=== PATIENT | male | born 1935 | race Caucasian/White ===

== ENCOUNTER → 2023-11-16 13:36 | Outpatient (REF) | payer MEDICARE, BC, SELFPAY | LOC: DHCBC MAIN 13:36 | PROVIDERS: ATTENDING PHYSICIAN Internal Medicine Cardiovascular Disease; FAMILY PHYSICIAN Family Medicine | DX: Q25.3 Supravalvular aortic stenosis (principal) | CPT/HCPCS: 93306 ==

== ENCOUNTER 2024-01-07 03:19 | Emergency (ER) | payer MEDICARE, BC, SELFPAY ==
[2024-01-07 03:21] VITALS: BP 122/79
--- NOTE | 2024-01-07 03:29 | ED.GENMED ---
History of Present Illness
General
Chief Complaint: Esophageal Problem
Time Seen by Provider: 01/07/24 03:29
Travel History
Have you had any contact with someone who has COVID-19?: No
Do you have any symptoms of coronavirus? Fever > 100 degrees, chills, cough, shortness of breath, sore throat, loss of taste or smell, muscle aches, or headache?: No
History of Present Illness
History of Present Illness:
HPI: Patient presents due to concern for something stuck in his esophagus. He had a [place] dinner this past evening but continued to be able to clear his secretions. Later in the evening, he had an episode where he felt that there was something
stuck and he had some trouble breathing at the time. Overall he is significantly improved.
EXAM:
GENERAL: Well appearing in no distress
HEENT: Moist oral mucosa
PULMONARY: No respiratory distress, breath sounds are clear and equal
ABDOMEN: Soft with no peritoneal signs, no tenderness
NEUROLOGIC: Excellent strength all extremities, no coordination deficits
PSYCHIATRIC: Appropriate mental status, normal insight and judgement
EXTREMITIES: Nontender, no edema, moves all extremities equally
SKIN: No rash, no lesions
TIME OF INITIAL ENCOUNTER: 3:35 AM
NUMBER AND COMPLEXITY OF PROBLEMS ADDRESSED AT THE ENCOUNTER
� Chronic conditions affecting care: CAD, high blood pressure, hyperlipidemia
� Acute Exacerbation and/or Progression of Chronic Illness: This is an acute problem
� Differential Diagnosis includes: Esophageal food bolus, aspiration, irritation of the esophagus, GERD
AMOUNT AND/OR COMPLEXITY OF DATA TO BE REVIEWED AND ANALYZED
� I performed an independent evaluation of and my interpretation is:
EKG:
CT:
X-rays:
Laboratory Studies:
Other:
� Review of other/old records: I reviewed the endoscopy note from 2020 that showed abnormal motility of the esophagus
� Clinical information was obtained by an independent historian: I spoke to the at bedside
� Prescriptions/Medications Considered but not given:
� Further testing considered but not performed: No indication for imaging at this time
RISK OF COMPLICATIONS AND/OR MORBIDITY OR MORTALITY OF PATIENT MANAGEMENT
� Social determinants of health affecting care: Lives at home with
� Discussion with other providers:
� Escalation of care including admission/observation vs risk of discharge considered: I gave the patient a small amount of water to drink and eat and drink this without any difficulty. He initially thought he had some sensation
that something was stuck however on repeat attempt, he no longer had any abnormality and the water went down freely and without any difficulty. He is to follow-up with GI and I suggested that he resume his PPI.
Past History
Past History
ED Past Medical History: Arrthythmia, CAD, HTN, Hypercholesterolemia, [place] and Other (UTI, , lumbar DJD, afib on eliquis post-op, post-op urinary retention)
ED Past Surgical History: Cardiac (CABG 02/2018), Orthopedic and Other (Cataract)
Social History
Tobacco: Former smoker
Alcohol: None
Drug: None
Personal:
Living: with family
Employment: Retired
Family History
Family History: Other (n/c)
Phy Exam
Physical Exam
Physical Exam:
See HPI
Course
Vital Signs
Initial and Last Documented VS:
Initial Vital Signs
Temp Pulse Resp BP Pulse Ox
98 F 77 16 122/79 97
01/07/24 03:21 01/07/24 03:21 01/07/24 03:21 01/07/24 03:21 01/07/24 03:21
Last Documented Vital Signs
Temp Pulse Resp BP Pulse Ox
98 F 77 16 122/79 97
01/07/24 03:21 01/07/24 03:21 01/07/24 03:21 01/07/24 03:21 01/07/24 03:21
*Critical Care Note
Total Time (30-74mins, 75-104mins- exclusive of procedures): Not Applicable
ED Attending Note
-
Portions of this chart may have been created with voice recognition software.� Occasional wrong word or��sound alike� substitutions may have occurred due to the inherent limitations of voice recognition software.
Discharge Plan
Departure
Patient Disposition: Home (Routine Discharge)
Date of Disposition: 01/07/24
Time of Disposition: 03:46
Patient with high blood pressure during this ER visit?: Yes
Discharge Problem:
Dysphagia
Prescriptions:
No Action
atorvastatin 40 MG tablet
40 mg PO HS Qty: 30 3RF
tamsulosin 0.4 MG capsule
0.4 mg PO HS Qty: 30 0RF
acetaminophen [Tylenol Extra Strength] 500 MG tablet
1,000 mg PO Q6HPRN PRN (Reason: MILD PAIN)
aspirin 81 MG tablet,delayed release (DR/EC)
81 mg PO DAILY
olmesartan 20 MG tablet
20 mg PO BID
metoprolol succinate 25 MG tablet extended release 24 hr
25 mg PO DAILY@1200
hydrochlorothiazide 12.5 MG tablet
12.5 mg PO DAILY
bethanechol chloride 25 MG tablet
25 mg PO DAILY
Referrals:
Ofe Cortes MD [Active] - Follow up in 2-3 days
Activity Restrictions/Additional Instructions:
I recommend resuming your stomach acid medication. I also recommend that you follow-up with GI. Return here if worse.
Interventions
Interventions:
*Risk Screen - Suicide Last Done: 01/07/24 03:21
*General Assessment Last Done: 01/07/24 03:21
*Neglect/Abuse Screening Last Done: 01/07/24 03:21
*ED COVID-19 Vaccine History Last Done: 01/07/24 03:37
MI-Psgjyz-Nzsocjetuo Assessment Last Done: 01/07/24 03:37
ED-EENT Assessment Last Done: 01/07/24 03:37
Discharge Date and Time
Print Language: SOUTH AFRICAN
== END 2024-01-07 04:00 | disposition home or self-care (01) ==
LOC: EMR 03:19
PROVIDERS: EMERGENCY PHYSICIAN Emergency Medicine; FAMILY PHYSICIAN Family Medicine
DX: R13.10 Dysphagia, unspecified (principal); I25.10 Atherosclerotic heart disease of native coronary artery without angina pectoris; I10 Essential (primary) hypertension; E78.00 Pure hypercholesterolemia, unspecified; I48.91 Unspecified atrial fibrillation; M47.816 Spondylosis without myelopathy or radiculopathy, lumbar region; I25.2 Old myocardial infarction; Z79.82 Long term (current) use of aspirin; Z87.440 Personal history of urinary (tract) infections; Z87.891 Personal history of nicotine dependence; Z95.1 Presence of aortocoronary bypass graft; Z91.018 Allergy to other foods
CPT/HCPCS: 99282

== ENCOUNTER 2024-02-03 19:59 | Inpatient (IN) | payer MEDICARE, BC, SELFPAY ==
[2024-02-03 16:12] VITALS: BP 169/83
[2024-02-03 16:37] LABS: % Basophils 0.6 % (0-2); % Eosinophils 2.4 % (0-6); % Immature Granulocytes 0.5 % (0-0.5); % Monocytes 14.4 % (1.7-9.3); % Neutrophils 57.1 % (42.2-75.2); Absolute Eosinophils 0.2 10^3/uL (0-0.7); Absolute Lymphocytes 1.6 10^3/uL (1.2-3.4); Absolute Monocytes 0.9 10^3/uL (0.1-0.6); Absolute Neutrophils 3.6 10^3/uL (1.4-6.5); Hemoglobin 13.8 g/dL (13.0-18.0); Mean Corp Hgb Conc. 34.5 g/dL (33.0-37.0); Mean Corpuscular Hgb 33.5 pg (27.0-31.0); Mean Corpuscular Volume 97.1 fL (80.0-94.0); Mean Platelet Volume 10.5 fL (7.4-10.4); Nucleated Red Blood Cells % 0 % (-); Platelet Count 205 10^3/uL (130-400); Red Blood Cell Count 4.12 10^6/uL (4.70-6.10); Red Cell Dist. Width 12.5 % (11.5-14.5); White Blood Cell Count 6.3 10^3/uL (4.8-10.8)
--- NOTE | 2024-02-03 16:40 | CON.CAR ---
Addendum entered and electronically signed by Ken Mireles MD 02/04/24 07:32:
Patient seen and examined in duration with ACID PURIFICATION EQUIPMENT OPERATOR; agree with below.
-88-year-old male with-close previous CABG moderate to severe aortic stenosis presenting with dyspnea.
-Troponin elevation could be secondary to demand ischemia (type II IA) versus nonischemic myocardial injury in the setting of severe aortic stenosis.
-Recommend Lasix 40 mg IV daily for now.
-Will arrange cardiac catheterization on Tuesday as patient will likely need to undergo TAVR.
-environmental monitoring technician; will follow.
Original Note:
Consultation
Consultation Request
Date/Time Consultation Requested: 02/03/2024 17:30
Date/Time Consultation Performed: 02/03/2024 17:30
Requesting Provider: Dr. Hopkins
Performing Provider: NIKKY Yan for Dr. Mireles
Reason for Consultation: Shortness of breath, chest tightness
Medical History
-
Chief Complaint: Chest tightness, shortness of breath
History of Present Illness:
Manav Martínez is an 88-year-old male (known to Dr. Anglin, his primary handbag framer), with coronary artery disease (CABG x4, 2018), moderate to severe aortic stenosis, post CABG paroxysmal atrial fibrillation (briefly on apixaban), hypertension,
dyslipidemia, GERD, and former smoker who called triage at the cardiology office with shortness of breath and chest tightness. He was referred to the emergency department. His anginal equivalent prior to CABG was shortness of breath. He has been
having associated lower extremity edema. It gets worse throughout the day but when he wakes in the morning it does not completely resolve. Regarding his chest tightness, this is exertional. It does not radiate. He endorses associated symptoms of
shortness of breath. He is not having any nausea, vomiting, nor diaphoresis with this. He is not having any shortness of breath at rest but he reports it is taking less activity for him to become short of breath and he needs to recover a little
bit longer than last week.
Past Medical History
Past Medical History: Arrhythmias (Paroxysmal atrial fibrillation [post CABG, briefly on apixaban]), CAD, GERD, HTN, Hypercholesterolemia and Valvular Disease (Aortic stenosis)
Past Surgical History: Cardiac (CABG x 4 [2018]), Orthopedic and Urological (TURP)
Social History
Tobacco: Former Smoker
Alcohol: None
Drug: None
Employment: Retired
Family History
Family History: Reviewed & Not Pertinent
Allergies / Home Medications
Allergy/AdvReac Type Severity Reaction Status Date / Time
apple Allergy Swelling Verified 09/24/20 18:17
�Medication �Instructions �Recorded �Confirmed �Type
atorvastatin 40 mg tablet 40 mg PO HS ##30 03/09/18 09/24/20 Rx
tamsulosin 0.4 mg capsule 0.4 mg PO HS ##30 03/09/18 09/24/20 Rx
acetaminophen 500 mg tablet 1,000 mg PO Q6HPRN PRN MILD PAIN 03/17/18 09/24/20 History
(Tylenol Extra Strength)
aspirin 81 mg tablet,delayed 81 mg PO DAILY 05/22/18 09/24/20 History
release
olmesartan 20 mg tablet 20 mg PO BID 05/22/18 09/24/20 History
bethanechol chloride 25 mg tablet 25 mg PO DAILY 09/24/20 09/24/20 History
hydrochlorothiazide 12.5 mg tablet 12.5 mg PO DAILY 09/24/20 09/24/20 History
metoprolol succinate 25 mg 25 mg PO DAILY@1200 09/24/20 09/24/20 History
tablet,extended release 24 hr
Review of Systems
-
History Source: Patient
All other systems: Negative unless noted
Constitutional: No Symptoms
EENT: No Symptoms
Respiratory: Trouble Breathing
Cardiac: Chest Pain
Abdomen/GI: No Symptoms
: No Symptoms
Skin: No Symptoms
Neurological: No Symptoms
Endocrine: No Symptoms
Hematologic/Lymphatic: No Symptoms
Physical Exam
Vital Signs
Temp Pulse Resp BP Pulse Ox
98.0 F 78 19 169/83 98
02/03/24 16:12 02/03/24 16:12 02/03/24 16:12 02/03/24 16:12 02/03/24 16:12
Lab Results
02/03/24 16:27
Physical Exam
General: Well Developed, Well Nourished, No Apparent Distress and Comfortable
HEENT: Normocephalic, Anicteric and Moist Mucous Membranes
Respiratory: Clear and Non Labored Respirations
Cardiac: S1/S2, Regular Rhythm and Murmur (II/)
Breast: Deferred by me
GI: Soft, Non Tender, Non Distended and Normal Bowel Sounds
Rectal: Deferred by Provider
Genito-urinary: No Costovertebral Tender
Musculoskeletal: No Clubbing, No Cyanosis and Edema (+2 pitting bilateral lower extremity edema)
Skin: Warm and Dry
Neuro: AO x 3
Hematologic/Lymphatic: No Lymphadenopathy
Psych: Calm
Impression / Plan
-
Shortness of breath
-DDx includes: ischemia, progressive aortic stenosis, and HFpEF or a multifactorial picture which is more likely
-Plan as below
Abnormal troponin, type unknown
-Could be in the setting of severe aortic stenosis and HFpEF or CAD
-Trend to peak along with EKG
-Heparin gtt, continue ASA
-Cardiac catheterization Tuesday
HFpEF, acute
-proBNP & CXR ordered
-Furosemide 40mg IV x 1 now, follow, can consider decrease to 20mg IV BID pending on I/O
-Trend daily weight, I/O, & BMP with diuresis
-Heart failure education
Aortic stenosis, moderate to severe
-Echocardiogram in October with peak/mean gradients of 38/22 mmHg with JANUARY 0.9 cm� with mild to moderate aortic regurgitation
-Update echocardiogram
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
CAD s/p CABG x 4 (STERN�LAD; SVG�RPD; SVG�OM1, OM 2) 02/[address] Stauffer
-Anginal equivalent was shortness of breath
-Continue ASA & statin
Paroxysmal atrial fibrillation, brief after CABG, on short-term apixaban
Hypertension, BP stable, follow
Dyslipidemia, most recent LDL 36 (10/2023)
Mild to moderate tricuspid regurgitation, PASP 40-45 mmHg
Former smoker, continued cessation recommended
Data Reviewed
-
EKG: Report Reviewed by me (Sinus rhythm, first-degree AV block, lateral ST abnormality, rate 68)
Medical Tests (Nuc Med, Echo etc): Report Reviewed by me (Echocardiogram as above)
Labs: Labs Reviewed by me
Old Records: Reviewed
[2024-02-03 16:54] LABS: ALT (SGPT) 22 U/L (0-50); AST (SGOT) 30 U/L (17-59); Albumin 4.7 g/dl (3.5-5.0); Alkaline Phosphatase 84 U/L (38-126); Blood Urea Nitrogen 17 mg/dl (9-20); Calcium 9.9 mg/dl (8.4-10.2); Carbon Dioxide 24 mmol/L (22-30); Chloride 105 mmol/L (98-107); Glucose 108 mg/dl (70-99); Sodium 138 mmol/L (135-145); Total Bilirubin 1.2 mg/dl (0.2-1.3); Total Protein 7.1 g/dl (6.3-8.2); eGFR > 60.00
[2024-02-03 17:10] LABS: Troponin I 0.077 ng/ml
[2024-02-03 18:06] VITALS: BMI 28.3
--- NOTE | 2024-02-03 18:06 | ED.GENMED ---
History of Present Illness
<Luis Fonseca MD, Resident - Last Filed: 02/03/24 18:31>
General
Chief Complaint: Chest Pain
Time Seen by Provider: 02/03/24 17:40
History of Present Illness
History of Present Illness:
Manav is an 88-year-old male with history of coronary artery disease (CABG in 08/28/2017), aortic stenosis, paroxysmal atrial fibrillation post CABG, hypertension, dyslipidemia, GERD, former smoker presented to the ED with shortness of breath on
exertion and chest tightness. He please call tried to the cardiology office with the symptoms and was told to come immediately to [facility] ED. Patient reports of bilateral lower extremity edema which is which is constant throughout the
day and does not resolve with elevation of the legs. He admits to having SOB and chest tightness on exertion. He denies pain radiation to his shoulders or back. Patient denies any recent illnesses, cough, abd pain, nausea, vomiting.
Past History
<Luis Fonseca MD, Resident - Last Filed: 02/03/24 18:31>
Past History
ED Past Medical History: Arrthythmia, CAD, HTN, Hypercholesterolemia, [place] and Other (UTI, , lumbar DJD, afib on eliquis post-op, post-op urinary retention)
ED Past Surgical History: Cardiac (CABG 02/2018), Orthopedic and Other (Cataract)
Social History
Tobacco: Former smoker
Alcohol: None
Drug: None
Personal:
Living: with family
Employment: Retired
Family History
Family History: Other (n/c)
Review of Systems
<Luis Fonseca MD, Resident - Last Filed: 02/03/24 18:31>
Review of Systems
Respiratory: Reports trouble breathing
Cardiac: Reports other (chest tightness )
Phy Exam
<Luis Fonseca MD, Resident - Last Filed: 02/03/24 18:31>
General Physical Exam
General Presentation: mild distress
General age: appears stated age
Cardiovascular Exam
Cardiovascular Exam: regular rate/rhythm and systolic murmur (left upper sternal border )
Pulmonary Exam
Pulmonary Exam: lungs clear
Gastrointestinal Exam
Gastrointestinal Exam: normal bowel sounds, non tender and soft
Musculoskeletal Exam
Musculoskeletal Exam: edema (3+ pitting edema in left LE more than right LE)
Scores
<Luis Fonseca MD, Resident - Last Filed: 02/03/24 18:31>
Heart Score for Chest Pain Patients
STEMI patient?: No
History: Highly Suspicious
ECG: Normal
Age: >/= 65 years
Risk Factors: 1 or 2 Risk Factors
Troponin: >1 - <3 x Normal Limit
Heart Score for Chest Pain Patients: 6
Heart Score Risk: 20.3% MACE over next 6 weeks
<Louis Hopkins, DO - Last Filed: 02/03/24 18:44>
Heart Score for Chest Pain Patients
Heart Score for Chest Pain Patients: 6
Heart Score Risk: 20.3% MACE over next 6 weeks
Course
<Luis Fonseca MD, Resident - Last Filed: 02/03/24 18:31>
Orders/Labs/Results
Orders:
Orders
02/03/24 16:11
EKG [Electrocardiogram (*1)] Urgent
Reason for Study: Chest Pain
EKG- Treatment ONCE
02/03/24 16:27
Complete Blood Count/With Diff Urgent
Comprehensive Metabolic Panel Urgent
NT-proBNP Urgent
Comment: ADD ON
Troponin I Urgent
02/03/24 17:11
Add On- LAB Urgent
Tests Added?: proBNP
02/03/24 17:51
Furosemide [Lasix] 40 mg IV NOW STA
CXR2 [CR Chest - 2 Views ] Routine
Comment:
Reason For Exam: Shortness of breath
Abnormal Lab Results
02/03/24
16:27
RBC 4.12 L 10^6/uL
(4.70-6.10)
MCV 97.1 H fL
(80.0-94.0)
MCH 33.5 H pg
(27.0-31.0)
MPV 10.5 H fL
(7.4-10.4)
Absolute Monos (auto) 0.9 H 10^3/uL
(0.1-0.6)
Monocytes % 14.4 H %
(1.7-9.3)
Glucose 108 H mg/dl
(70-99)
Troponin I 0.077 H* ng/ml
02/03/24 16:27
02/03/24 16:27
Vital Signs
Initial and Last Documented VS:
Initial Vital Signs
Temp Pulse Resp BP Pulse Ox
98.0 F 78 19 169/83 98
02/03/24 16:12 02/03/24 16:12 02/03/24 16:12 02/03/24 16:12 02/03/24 16:12
Last Documented Vital Signs
Temp Pulse Resp BP Pulse Ox
98.0 F 56 14 154/70 97
02/03/24 16:12 02/03/24 18:12 02/03/24 18:12 02/03/24 18:12 02/03/24 18:15
<Louis Hopkins DO - Last Filed: 02/03/24 18:44>
Orders/Labs/Results
Orders:
Orders
02/03/24 16:11
EKG [Electrocardiogram (*1)] Urgent
Reason for Study: Chest Pain
EKG- Treatment ONCE
02/03/24 16:27
Complete Blood Count/With Diff Urgent
Comprehensive Metabolic Panel Urgent
NT-proBNP Urgent
Comment: ADD ON
Troponin I Urgent
02/03/24 17:11
Add On- LAB Urgent
Tests Added?: proBNP
02/03/24 17:51
Furosemide [Lasix] 40 mg IV NOW STA
CXR2 [CR Chest - 2 Views ] Routine
Comment:
Reason For Exam: Shortness of breath
Abnormal Lab Results
02/03/24
16:27
RBC 4.12 L 10^6/uL
(4.70-6.10)
MCV 97.1 H fL
(80.0-94.0)
MCH 33.5 H pg
(27.0-31.0)
MPV 10.5 H fL
(7.4-10.4)
Absolute Monos (auto) 0.9 H 10^3/uL
(0.1-0.6)
Monocytes % 14.4 H %
(1.7-9.3)
Glucose 108 H mg/dl
(70-99)
Troponin I 0.077 H* ng/ml
02/03/24 16:27
02/03/24 16:27
Vital Signs
Initial and Last Documented VS:
Initial Vital Signs
Temp Pulse Resp BP Pulse Ox
98.0 F 78 19 169/83 98
02/03/24 16:12 02/03/24 16:12 02/03/24 16:12 02/03/24 16:12 02/03/24 16:12
Last Documented Vital Signs
Temp Pulse Resp BP Pulse Ox
98.0 F 56 14 154/70 97
02/03/24 16:12 02/03/24 18:12 02/03/24 18:12 02/03/24 18:12 02/03/24 18:15
<Luis Fonseca MD, Resident - Last Filed: 02/03/24 18:31>
*Critical Care Note
Total Time (30-74mins, 75-104mins- exclusive of procedures): Not Applicable
<Luis Fonseca MD, Resident - Last Filed: 02/03/24 18:31>
Update Note
Update Note:
88-year-old male presented to the ED with dyspnea on exertion and chest tightness
Acute congestive heart failure :
- Elevation of trop I -0.077, patient is symptomatic.
-Cardiology consulted
-IV furosemide 40 mg
-Plan to admit the patient for cardiac catheterization on Tuesday.
ED Attending Note
<Luis Fonseca MD, Resident - Last Filed: 02/03/24 18:31>
-
Portions of this chart may have been created with voice recognition software.� Occasional wrong word or��sound alike� substitutions may have occurred due to the inherent limitations of voice recognition software.
<Louis Hopkins DO - Last Filed: 02/03/24 18:44>
ED Attending Note
Patient seen and examined by attending physician: Yes
I performed a history and physical exam of patient and discussed management with resident, I reviewed resident's note and agree with documented findings and plan of care.: Yes
ED Attending Note:
Seen with resident agree with assessment plan I did review the patient's presentation with cardiology PRODUCE SPECIALIST history of valvular disease congestive heart failure presents chest pain and shortness of breath plan will be admission for diuresis
Discharge Plan
Departure
Patient Disposition: Admit
Date of Disposition: 02/03/24
Time of Disposition: 18:26
Presentation/result/management discussed w/ accepting MD/DO: Hospitalist
Patient with high blood pressure during this ER visit?: Yes
Discharge Problem:
Acute congestive heart failure
Prescriptions:
No Action
atorvastatin 40 MG tablet
40 mg PO HS Qty: 30 3RF
tamsulosin 0.4 MG capsule
0.4 mg PO HS Qty: 30 0RF
acetaminophen [Tylenol Extra Strength] 500 MG tablet
1,000 mg PO Q6HPRN PRN (Reason: MILD PAIN)
aspirin 81 MG tablet,delayed release (DR/EC)
81 mg PO DAILY
olmesartan 20 MG tablet
20 mg PO BID
metoprolol succinate 25 MG tablet extended release 24 hr
25 mg PO DAILY@1200
hydrochlorothiazide 12.5 MG tablet
12.5 mg PO DAILY
bethanechol chloride 25 MG tablet
25 mg PO DAILY
Referrals:
Melvin Khan DO [Family Provider] -
Interventions
Interventions:
*Risk Screen - Suicide Last Done: 02/03/24 18:14
*General Assessment Last Done: 02/03/24 16:13
*Neglect/Abuse Screening Last Done: 02/03/24 18:08
ED- Fall Risk Assessment Last Done: 02/03/24 18:15
*ED COVID-19 Vaccine History Last Done: 02/03/24 18:06
ED- Cardiac Assessment Last Done: 02/03/24 18:14
Discharge Date and Time
Print Language: INDONESIAN
[2024-02-03 18:12] VITALS: BP 154/70
[2024-02-03] MEDS: LASIX 40 MG IV (18:12)
[2024-02-03 18:32] LABS: NT-proBNP 5790 pg/ml
[2024-02-03 19:00] VITALS: BP 158/70
--- NOTE | 2024-02-03 19:45 | HPS.HSE ---
Family Physician
-
Family Physician: Melvin hKan
Chief Complaint
-
Chest pain
History of Present Illness
Patient is an 88y M with PMH significant for ASCVD, severe and CHF who presents to ED complaining of chest pain. Patient states that he developed chest tightness across the entire chest earlier today. The pain did not radiate to the jaw,
arms, back or abdomen. He had no associated nausea, diaphoresis, etc. He has had some intermittent SOB recently for which he has been followed by Cardiology - in regards to his worsening .
Patient denies any recent illness. No recent change in medications.
At the time of my examination, patient is pain free.
Medical History
Past Medical History
Past Medical History: Reports Other
Additional Past Medical History:
ASCVD
Hypertension
Severe Aortic Stenosis
Mild - Moderate Mitral Regurgitation
Mild- Moderate Tricuspid Regurgitation
Chronic HFpEF
BPH
Past Surgical History: Reports Other
Additional Past Surgical History:
CABG x 3
TURP
Carpal Tunnel Release (R)
Right RAFAEL
Social History
Tobacco: Former Smoker (Quit smoking 50 years ago. < 10 pack years total.)
Alcohol: Occasional
Family History
Family History: Other (Mother: Longevity)
Allergies / Home Medications
Allergies reflects when Allergies were last updated in [employer].
Home Medications with original date entered in [employer]
Allergy/Medication List:
Allergies
Allergy/AdvReac Type Severity Reaction Status Date / Time
apple Allergy Swelling Verified 09/24/20 18:17
Home Medications
atorvastatin 40 mg tablet 40 mg PO HS ##30 03/09/18
tamsulosin 0.4 mg capsule 0.4 mg PO HS ##30 03/09/18
acetaminophen 500 mg tablet (Tylenol Extra Strength) 1,000 mg PO Q6HPRN PRN MILD PAIN 03/17/18
aspirin 81 mg tablet,delayed release 81 mg PO DAILY 05/22/18
olmesartan 20 mg tablet 20 mg PO BID 05/22/18
bethanechol chloride 25 mg tablet 25 mg PO DAILY 09/24/20
hydrochlorothiazide 12.5 mg tablet 12.5 mg PO DAILY 09/24/20
metoprolol succinate 25 mg tablet,extended release 24 hr 25 mg PO DAILY@1200 09/24/20
omeprazole 20 mg capsule,delayed release 20 mg PO DAILY 02/03/24
Review of Systems
-
History Source: Patient
A 12 point ROS was completed and negative except as noted: Yes
Constitutional: Denies Fever, Weight Gain, Weight Loss, Fatigue or Chills
Respiratory: Reports Trouble Breathing; Denies Cough or Hemoptysis
Cardiac: Reports Chest Pain; Denies Diaphoresis, Palpitations or Syncope
Abdomen/GI: Denies Abdominal Pain, Nausea, Vomiting or Diarrhea
: Denies Dysuria, Frequency or Flank Pain
Musculoskeletal: Reports Edema; Denies Joint Pain
Neurological: Denies Dizzy or Headache
Psych: Denies Depression or Anxiety
Physical Exam
Vital Signs
Vital Signs
Temp Pulse Resp BP Pulse Ox
98.0 F 57 9 158/70 97
02/03/24 16:12 02/03/24 19:23 02/03/24 19:23 02/03/24 19:00 02/03/24 19:26
Physical Exam
General: Other (88y M resting comfortably in no acute distress.)
HEENT: Moist mucous membranes and PERRLA
Respiratory: Clear; No Wheezes, Rales or Rhonchi
Cardiac: S1/S2, Regular Rhythm and Murmur (III/ CHRISTIN)
GI: Soft, Non Tender, Non Distended and Normal Bowel Sounds
Musculoskeletal: No Clubbing, No Cyanosis and Other (2-3+ pitting edema b/l LEs - L > R.)
Neuro: AO x 3
Laboratory Results
-
02/03/24 16:27
02/03/24 16:27
Laboratory Results
Total Bilirubin 1.2 mg/dl (0.2-1.3) 02/03/24 16:27
AST 30 U/L (17-59) 02/03/24 16:27
ALT 22 U/L (0-50) 02/03/24 16:27
Alkaline Phosphatase 84 U/L (38-126) 02/03/24 16:27
Troponin I 0.077 ng/ml H* 02/03/24 16:27
Impression/Plan
-
A/P: Patient is an 88y M with PMH significant for ASCVD, CHF and who presents to ED complaining of chest pain.
Chest Pain
ASCVD
Abnormal Troponin - Unclear Type
- Admit for further evaluation and treatment.
- IV Heparin per Cardiology recommendations.
- Follow troponin to peak.
- Tentative plan is for ischemic evaluation on Tuesday.
- Monitor for any new / recurrent symptoms prior.
- Continue ASA, beta-timoteo, statin, etc.
Acute on Chronic HFpEF
Valvular Heart Disease
Severe
- Perhaps mild exacerbation based on recent dyspnea, CXR findings, worsening LE edema and elevated proBNP.
- Weight however has been very stable. Patient is not hypoxemic.
- Continue IV Lasix BID for now and follow I/Os, daily weights, etc.
- Echo done October 2023 with LVEF 55-60%, stage III diastolic dysfunction and valvular disease as noted.
Benign Hypertension
- Stable. Hold HCTZ while on IV Lasix.
- Continue other outpatient meds with holding parameters.
BPH
- Stable. Continue tamsulosin.
- Bladder scan protocol.
DVT Prophylaxis: On therapeutic heparin.
Code Status: Full
[2024-02-03 20:00] VITALS: BP 139/64
[2024-02-03 20:49] VITALS: BP 150/63
[2024-02-03 21:23] LABS: Hematocrit 37.5 % (39.0-52.0); Hemoglobin 13.5 g/dL (13.0-18.0); Mean Corpuscular Hgb 33.2 pg (27.0-31.0); Mean Corpuscular Volume 92.1 fL (80.0-94.0); Mean Platelet Volume 10.2 fL (7.4-10.4); Platelet Count 225 10^3/uL (130-400); Red Blood Cell Count 4.07 10^6/uL (4.70-6.10); Red Cell Dist. Width 12.5 % (11.5-14.5); White Blood Cell Count 6.9 10^3/uL (4.8-10.8)
[2024-02-03] MEDS: BENICAR 20 MG PO (21:27)
[2024-02-03] MEDS: LIPITOR 40 MG PO (21:27)
[2024-02-03] MEDS: FLOMAX 0.4 MG PO (21:28)
[2024-02-03] MEDS: HEPARIN 4000 UNITS IV (21:29)
[2024-02-03] MEDS: HEPARIN 25000 UNITS/250 ML IV (21:32)
[2024-02-03 21:36] LABS: APTT 33.7 Sec (23.4-35.0)
[2024-02-03] MEDS: PHATP 4000 UNIT PO (21:44)
[2024-02-03 21:51] LABS: Troponin I 0.086 ng/ml
[2024-02-03 22:30] VITALS: BP 124/55
--- NOTE | 2024-02-03 23:03 | PTCARENOTE ---
Patient admitted to unit, ambulated from stretcher to bed with SPC w/o assistance. Admission and assessment completed. 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
lower extremity edema, weak PP. PIV right AC intact. Medications given according to MAR, labs drawn as ordered, heparin bolus given, heparin gtt infusing through right AC. Reviewed plan of care, questions answered. Patient w/no complaints of pain,
resting comfortably in bed, call mart in reach.
[2024-02-04 03:04] VITALS: BP 130/61
[2024-02-04 03:26] LABS: Hematocrit 36.6 % (39.0-52.0); Hemoglobin 12.7 g/dL (13.0-18.0); Mean Corp Hgb Conc. 34.7 g/dL (33.0-37.0); Mean Corpuscular Hgb 33.7 pg (27.0-31.0); Mean Corpuscular Volume 97.1 fL (80.0-94.0); Mean Platelet Volume 10.7 fL (7.4-10.4); Platelet Count 203 10^3/uL (130-400); Red Blood Cell Count 3.77 10^6/uL (4.70-6.10); Red Cell Dist. Width 12.4 % (11.5-14.5); White Blood Cell Count 6.6 10^3/uL (4.8-10.8)
[2024-02-04 03:41] LABS: APTT 184.8 Sec (23.4-35.0)
[2024-02-04 03:55] LABS: Blood Urea Nitrogen 16 mg/dl (9-20); Calcium 9.5 mg/dl (8.4-10.2); Carbon Dioxide 28 mmol/L (22-30); Chloride 104 mmol/L (98-107); Estimated Creatinine Clearance 65 ml/min; Glucose 95 mg/dl (70-99); HDL Cholesterol 42 mg/dl; LDL Cholesterol, Calculated 25 mg/dl; Potassium 3.5 mmol/L (3.5-5.1); Sodium 139 mmol/L (135-145); Total Cholesterol 82 mg/dl (50-199); Triglyceride 76 mg/dl (10-149); Very Low Density Lipoprotein 15 mg/dl (0-30); eGFR > 60.00
[2024-02-04 03:57] LABS: Troponin I 0.103 ng/ml
[2024-02-04 06:00] VITALS: BMI 26.9
--- NOTE | 2024-02-04 06:52 | W.PN.HOSP.TC ---
Today's Communication/Plan
-
.
Assessment / Plan
Assessment / Plan
Physical Exam
General: Other (88y M resting comfortably in no acute distress.)
HEENT: Moist mucous membranes and PERRLA
Respiratory: Clear; No Wheezes, Rales or Rhonchi
Cardiac: S1/S2, Regular Rhythm and Murmur (III/ CHRISTIN)
GI: Soft, Non Tender, Non Distended and Normal Bowel Sounds
Musculoskeletal: No Clubbing, No Cyanosis and Other (2-3+ pitting edema b/l LEs - L > R.)
Neuro: AO x 3
Patient is an 88y M with PMH significant for ASCVD, CHF and who presents to ED complaining of chest pain.
#Chest Pain
No chest pain over night
Abnormal Troponin - likely Type II [place]
c/w IV heparin
Continue ASA, beta-timoteo, statin,
Plan for cath on Tuesday
Acute on Chronic HFpEF
Valvular Heart Disease
Severe
- Perhaps mild exacerbation based on recent dyspnea, CXR findings, worsening LE edema and elevated proBNP.
- Weight however has been very stable. Patient is not hypoxemic.
- Continue IV Lasix BID for now and follow I/Os, daily weights, etc.
- Echo done October 2023 with LVEF 55-60%, stage III diastolic dysfunction and valvular disease as noted.
Benign Hypertension
- Stable. Hold HCTZ while on IV Lasix.
- Continue other outpatient meds with holding parameters.
BPH
- Stable. Continue tamsulosin.
- Bladder scan protocol.
DVT Prophylaxis: On therapeutic heparin.
Code Status: Full
Total time spent to see the patient, examine the patient on the floor, review data and lab results, discuss treatment plan with pt and nursing staff around 55 minutes
Anticipated Discharge: > 48 hours
Subjective/Interval History
-
Date of Service: February 04, 2024
No chest pain over night
No sob
Objective Data
-
Labs:
Laboratory Results
02/03/24 02/04/24 02/04/24
21:15 03:11 03:16
WBC 6.9 6.6
Hgb 13.5 12.7 L
Hct 37.5 L 36.6 L
Plt Count 225 203
APTT 33.7 184.8 H*
Sodium 139
Potassium 3.5
Chloride 104
Carbon Dioxide 28
BUN 16
Creatinine 0.8
Glucose 95
Calcium 9.5
02/04/24
10:45
WBC
Hgb
Hct
Plt Count
APTT Pending
Sodium
Potassium
Chloride
Carbon Dioxide
BUN
Creatinine
Glucose
Calcium
Vital Signs:
Vital Signs
Temp Pulse Resp BP Pulse Ox
98.1 F 58 18 130/61 98
02/04/24 03:06 02/04/24 06:00 02/04/24 03:06 02/04/24 03:04 02/04/24 03:06
I&O
02/02/24 02/03/24 02/04/24
06:59 06:59 06:59
Intake Total 320 / 320
Output Total 575 / 575
Balance -255 / -255
[2024-02-04 07:18] VITALS: BP 133/65
[2024-02-04] MEDS: BENICAR 20 MG PO ×2 (07:44→21:13)
[2024-02-04] MEDS: PROTONIX 40 MG PO (07:44)
[2024-02-04] MEDS: LASIX 20 MG IV ×2 (07:45→16:02)
[2024-02-04] MEDS: ASPIR LOW (ENTERIC COATED) 81 MG PO (07:45)
--- NOTE | 2024-02-04 10:53 | W.PN.CD ---
Addendum entered and electronically signed by Ken Mireles MD 02/04/24 11:50:
Patient seen and examined in collaboration with [employer]; agree with below.
-Volume status/shortness of breath improving.
-Continue Lasix 20 mg IV BID.
-Patient will undergo right and left heart catheterization on Tuesday; aortic valve replacement needed in the near future.
-Continue business line controller.
Original Note:
Today's Communication / Plan
-
Continue diuresis
Lower extremity compression
Trend troponin to peak
Impression / Plan
-
BACKGROUND: 88M with coronary artery disease (CABG x4, 2018), moderate to severe aortic stenosis, post CABG paroxysmal atrial fibrillation (briefly on apixaban), hypertension, dyslipidemia, GERD, and former smoker who called triage at the cardiology
office with shortness of breath and chest tightness.
Screen Door Maker: Dr. Anglin
Shortness of breath
-DDx includes: ischemia, progressive aortic stenosis, and HFpEF or a multifactorial picture which is most likely
-Plan as below
Abnormal troponin, type unknown
-Could be in the setting of severe aortic stenosis and HFpEF or CAD
-Trend to peak along with EKG, currently 0.103
-Heparin gtt, continue ASA
-Cardiac catheterization Tuesday
HFpEF, acute
-proBNP 5790 and CXR with small pleural effusions
-Furosemide 20mg IV BID
-Case management to camacho SGLT2
-He will benefit from lower extremity compression, ordered
-Trend daily weight, I/O, & BMP with diuresis, weight currently unavailable
-Heart failure education
Aortic stenosis, moderate to severe
-Echocardiogram in October with peak/mean gradients of 38/22 mmHg with JANUARY 0.9 cm� with mild to moderate aortic regurgitation
-Update echocardiogram
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
CAD s/p CABG x 4 (STERN�LAD; SVG�RPD; SVG�OM1, OM 2) 02/[address] Stauffer
-Anginal equivalent was shortness of breath
-Continue ASA & statin
Prolonged VA interval, follow telemetry and EKG
Paroxysmal atrial fibrillation, brief after CABG, completed short-term apixaban
Hypertension, BP stable on metoprolol succinate and olmesartan
Dyslipidemia, LDL currently 25 on atorvastatin 40 mg
Mild to moderate tricuspid regurgitation, PASP 40-45 mmHg
Prediabetes, HgbA1c 5.8%
Former smoker, continued cessation recommended
Subjective:
Lower extremity edema improving. Shortness of breath has some mild improvement.
Physical Exam
Vital Signs/Labs
Vital Signs
Temp Pulse Resp BP Pulse Ox
98.4 F 57 16 133/65 96
02/04/24 07:43 02/04/24 07:30 02/04/24 07:43 02/04/24 07:18 02/04/24 07:43
02/03/24 02/04/24 02/05/24
06:59 06:59 06:59
Actual Weight 82.7 kg
02/04/24 03:11
02/04/24 03:11
APTT 184.8 Sec (23.4-35.0) H* 02/04/24 03:16
Triglycerides 76 mg/dl (10-149) 02/04/24 03:11
LDL Cholesterol, Calc 25 mg/dl 02/04/24 03:11
VLDL Cholesterol, Calc 15 mg/dl (0-30) 02/04/24 03:11
HDL Cholesterol 42 mg/dl 02/04/24 03:11
02/03/24
16:27
[id number]-Ddklsltdpmn Pept 5790
LAB Results
02/03/24 02/03/24 02/04/24
16:27 21:15 03:11
Troponin I 0.077 H* 0.086 H* 0.103 H*
Physical Exam
Constitutional: No acute distress and Comfortable
EENT: Anicteric and Moist mucous membranes
Cardiovascular: Pedal edema present, Systolic murmur present (III/) and S1S2 is normal
Respiratory: Respiratory effort normal and Lungs clear to auscul.
GI: Soft, Distention absent, Flat, Non tender and Normal bowel sounds
Neuro/Psych: AO x 3
Other: Skin (warm and dry)
Data Reviewed
-
Date of Service: February 04, 2024
EKG: Report Reviewed by me
Labs: Labs Reviewed by me and Labs Ordered by me
Old Records: Reviewed
[2024-02-04 10:58] LABS: Glycohemoglobin (HgbA1c) 5.8 % (4.0-5.6)
[2024-02-04 11:57] LABS: APTT 67.5 Sec (23.4-35.0)
[2024-02-04 12:06] LABS: Troponin I 0.081 ng/ml
[2024-02-04] MEDS: TOPROL XL 25 MG PO (12:12)
[2024-02-04 12:13] VITALS: BP 132/61
--- NOTE | 2024-02-04 14:50 | PTCARENOTE ---
assessment stable as documented, vss, no complaints. Family visiting most of afternoon, pt declining hygiene care and sitting in chair. Indicated he would do this later today.
[2024-02-04 15:26] VITALS: BP 131/59
--- NOTE | 2024-02-04 15:34 | PTCARENOTE ---
RN assumed care from outgoing RN, pt assessment wnl, vss, RA, SB, PIV, Heparin gtt, next ptt @ 1800, no c/o cp,sob.
[2024-02-04 19:15] LABS: APTT 72.7 Sec (23.4-35.0)
[2024-02-04 20:27] VITALS: BP 139/70
[2024-02-04] MEDS: FLOMAX 0.4 MG PO (21:12)
[2024-02-04] MEDS: LIPITOR 40 MG PO (21:13)
[2024-02-04 22:43] VITALS: BP 125/53
[2024-02-05] VITALS (10 sets, daily range): BP systolic 119–154; BP diastolic 52–78; BMI 26.6
[2024-02-05] MEDS: HEPARIN 25000 UNITS/250 ML IV (01:03)
[2024-02-05 02:29] LABS: Hematocrit 38.3 % (39.0-52.0); Hemoglobin 13.4 g/dL (13.0-18.0); Mean Corpuscular Hgb 33.8 pg (27.0-31.0); Mean Corpuscular Volume 96.5 fL (80.0-94.0); Mean Platelet Volume 10.6 fL (7.4-10.4); Platelet Count 208 10^3/uL (130-400); Red Blood Cell Count 3.97 10^6/uL (4.70-6.10); Red Cell Dist. Width 12.3 % (11.5-14.5); White Blood Cell Count 6.9 10^3/uL (4.8-10.8)
--- NOTE | 2024-02-05 06:55 | W.PN.HOSP.TC ---
Today's Communication/Plan
-
.
Assessment / Plan
Assessment / Plan
Physical Exam
General: Other (88y M resting comfortably in no acute distress.)
HEENT: Moist mucous membranes and PERRLA
Respiratory: Clear; No Wheezes, Rales or Rhonchi
Cardiac: S1/S2, Regular Rhythm and Murmur (III/ CHRISTIN)
GI: Soft, Non Tender, Non Distended and Normal Bowel Sounds
Musculoskeletal: No Clubbing, No Cyanosis and Other (2-3+ pitting edema b/l LEs - L > R.- chronic bigger left)
Neuro: AO x 3
Patient is an 88y M with PMH significant for ASCVD, CHF and who presents to ED complaining of chest pain.
# Episode of nausea with leg burning upon sitting up, possibly transient drop in BP. I checked BP and was normal.
Monitor upon standing or ambulation
d/w nursing
#Chest Pain
No chest pain
Troponin is trending down
Abnormal Troponin - likely Type II [place]
c/w IV heparin
Continue ASA, beta-timoteo, statin,
Plan for cath on Tuesday
Acute on Chronic HFpEF
Valvular Heart Disease
Severe
Good response with weight is coming down and less leg swelling
- Perhaps mild exacerbation based on recent dyspnea, CXR findings, worsening LE edema and elevated proBNP.
- Weight however has been very stable. Patient is not hypoxemic.
- Continue IV Lasix BID for now and follow I/Os, daily weights.
- Echo done October 2023 with LVEF 55-60%, stage III diastolic dysfunction and valvular disease as noted.
Benign Hypertension
- Stable. Hold HCTZ while on IV Lasix.
- Continue other outpatient meds with holding parameters.
BPH
- Stable. Continue tamsulosin.
- Bladder scan protocol.
DVT Prophylaxis: On therapeutic heparin.
Code Status: Full
Total time spent to see the patient, examine the patient on the floor, review data and lab results, discuss treatment plan with pt and nursing staff around 57 minutes
Anticipated Discharge: > 48 hours
Subjective/Interval History
-
Date of Service: February 05, 2024
No chest pain
No sob
He felt nausea with leg pain/ burning upon sitting up this morning but resolved
Objective Data
-
Labs:
Laboratory Results
02/04/24 02/05/24 02/05/24
18:34 02:10 08:00
WBC 6.9
Hgb 13.4
Hct 38.3 L
Plt Count 208
APTT 72.7 H 104.0 H Pending
Vital Signs:
Vital Signs
Temp Pulse Resp BP Pulse Ox
97.5 F 50 16 142/66 95
02/04/24 22:41 02/05/24 05:45 02/04/24 22:41 02/05/24 02:13 02/04/24 22:41
I&O
02/03/24 02/04/24 02/05/24
06:59 06:59 06:59
Intake Total 320 / 320 300 / 300
Output Total 575 / 575 1250 / 1250
Balance -255 / -255 -950 / -950
[2024-02-05] MEDS: PROTONIX 40 MG PO (08:08)
[2024-02-05] MEDS: BENICAR 20 MG PO ×2 (08:08→21:01)
[2024-02-05] MEDS: ASPIR LOW (ENTERIC COATED) 81 MG PO (08:08)
[2024-02-05] MEDS: LASIX 20 MG IV ×2 (08:10→16:43)
--- NOTE | 2024-02-05 10:15 | W.PN.CD ---
Today's Communication / Plan
-
-Troponin peaked at 0.103, now trending down.
-Continue heparin drip and aspirin.
-Cardiac catheterization tomorrow; NPO after midnight.
-Continue furosemide 20mg IV BID.
Impression / Plan
-
BACKGROUND: 88M with coronary artery disease (CABG x4, 2018), moderate to severe aortic stenosis, post CABG paroxysmal atrial fibrillation (briefly on apixaban), hypertension, dyslipidemia, GERD, and former smoker who called triage at the cardiology
office with shortness of breath and chest tightness.
Clinical Account Liaison: Dr. Anglin
Shortness of breath
-DDx includes: ischemia, progressive aortic stenosis, and HFpEF or a multifactorial picture which is most likely
-Plan as below
Abnormal troponin, type unknown
-Could be in the setting of severe aortic stenosis and HFpEF or CAD
-Troponin peaked at 0.103, now trending down.
-Continue heparin drip and aspirin.
-Cardiac catheterization tomorrow; NPO after midnight.
HFpEF, acute
-proBNP 5790 and CXR with small pleural effusions
-Continue furosemide 20mg IV BID.
-Case management to camacho SGLT2
-Trend daily weight, I/O, & BMP with diuresis, weight currently unavailable
-Heart failure education
Aortic stenosis, moderate to severe
-Echocardiogram in October with peak/mean gradients of 38/22 mmHg with JANUARY 0.9 cm� with mild to moderate aortic regurgitation
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
CAD s/p CABG x 4 (STERN�LAD; SVG�RPD; SVG�OM1, OM 2) 02/[address] Stauffer
-Anginal equivalent was shortness of breath
-Continue ASA & statin
Prolonged CT interval, follow telemetry and EKG
Paroxysmal atrial fibrillation, brief after CABG, completed short-term apixaban
Hypertension, BP stable on metoprolol succinate and olmesartan
Dyslipidemia, LDL currently 25 on atorvastatin 40 mg
Mild to moderate tricuspid regurgitation, PASP 40-45 mmHg
Prediabetes, HgbA1c 5.8%
Former smoker, continued cessation recommended
Subjective:
No major events overnight. Shortness of breath improved.
Physical Exam
Vital Signs/Labs
Vital Signs
Temp Pulse Resp BP Pulse Ox
98 F 63 16 145/70 97
02/05/24 07:55 02/05/24 08:00 02/05/24 07:55 02/05/24 08:10 02/05/24 07:55
02/04/24 02/05/24 02/06/24
06:59 06:59 06:59
Actual Weight 82.7 kg 81.7 kg
02/05/24 02:10
02/04/24 03:11
APTT 118.0 Sec (23.4-35.0) H 02/05/24 08:00
Triglycerides 76 mg/dl (10-149) 02/04/24 03:11
LDL Cholesterol, Calc 25 mg/dl 02/04/24 03:11
VLDL Cholesterol, Calc 15 mg/dl (0-30) 02/04/24 03:11
HDL Cholesterol 42 mg/dl 02/04/24 03:11
02/03/24
16:27
Olz-N-Nmpvmofmzsx Pept 5790
LAB Results
02/03/24 02/03/24 02/04/24
16:27 21:15 03:11
Troponin I 0.077 H* 0.086 H* 0.103 H*
02/04/24 02/04/24 02/04/24
11:17 15:30 21:30
Troponin I 0.081 H* Cancelled Cancelled
Physical Exam
Constitutional: No acute distress and Comfortable
EENT: Anicteric
Cardiovascular: Rhythm & rate is regular, Pedal edema present (1+), Systolic murmur present (3/6) and S1S2 is normal
Respiratory: Respiratory effort normal and Lungs clear to auscul.
GI: Soft
Neuro/Psych: AO x 3
Other: Skin (Warm, dry, intact)
Data Reviewed
-
Date of Service: February 05, 2024
EKG: Tracing Personally Visualized and interpreted (Telemetry: Sinus rhythm, occasional PVCs)
Medical Tests (PFT, Pathology etc): Discussed with Patient
Labs: Labs Reviewed by me
--- NOTE | 2024-02-05 10:42 | PTCARENOTE ---
Patient care assumed from nightshift RN. Patient fully alert and oriented. Complained of pain in bilateral thighs upon awakening, but states it is improving. Heparin gtt rate decreased after 0800 PTT results, current rate at 900 units/hour.
Redraw of PTT scheduled @ 1400.
[2024-02-05] MEDS: TOPROL XL 25 MG PO (12:51)
[2024-02-05 15:08] LABS: APTT 87.3 Sec (23.4-35.0)
[2024-02-05] MEDS: LIPITOR 40 MG PO (21:01)
[2024-02-05] MEDS: FLOMAX 0.4 MG PO (21:01)
[2024-02-05 21:30] LABS: APTT 81.4 Sec (23.4-35.0)
[2024-02-06] VITALS (23 sets, daily range): BP systolic 126–154; BP diastolic 53–70; BMI 26.2
[2024-02-06 04:29] LABS: Mean Corp Hgb Conc. 35.1 g/dL (33.0-37.0); Mean Corpuscular Hgb 32.8 pg (27.0-31.0); Mean Corpuscular Volume 93.4 fL (80.0-94.0); Mean Platelet Volume 10.3 fL (7.4-10.4); Platelet Count 213 10^3/uL (130-400); Red Blood Cell Count 3.96 10^6/uL (4.70-6.10); Red Cell Dist. Width 12.4 % (11.5-14.5); White Blood Cell Count 6.1 10^3/uL (4.8-10.8)
[2024-02-06 04:43] LABS: APTT 112.2 Sec (23.4-35.0)
[2024-02-06 04:54] LABS: Blood Urea Nitrogen 22 mg/dl (9-20); Calcium 9.6 mg/dl (8.4-10.2); Carbon Dioxide 29 mmol/L (22-30); Chloride 103 mmol/L (98-107); Estimated Creatinine Clearance 58 ml/min; Glucose 96 mg/dl (70-99); Potassium 3.4 mmol/L (3.5-5.1); Sodium 138 mmol/L (135-145); eGFR > 60.00
--- NOTE | 2024-02-06 05:59 | PTCARENOTE ---
Assumed care of patient at change of shift. VSS. Sinus lester with first degree and PVCs on monitor. Heparin drip currently infusing at 800units/hr. No complaints of chest pain or SOB. Ambulating independently without difficulty in room using
single point cane. Patient aware of plan of care and remains NPO since midnight for cardiac cath. Can make needs known. Call mart within reach.
[2024-02-06] MEDS: HEPARIN 25000 UNITS/250 ML IV (06:30)
[2024-02-06] MEDS: ASPIR LOW (ENTERIC COATED) 81 MG PO (09:08)
[2024-02-06] MEDS: BENICAR 20 MG PO ×2 (09:08→19:46)
[2024-02-06] MEDS: PROTONIX 40 MG PO (09:08)
[2024-02-06] MEDS: LASIX 20 MG IV ×2 (09:15→17:15)
--- NOTE | 2024-02-06 09:45 | W.PN.HOSP.TC ---
Addendum entered and electronically signed by Jenifer Craig MD 02/06/24 17:56:
88-year-old with chest pain
I personally performed a history and physical exam of the patient and discussed management with the resident. I reviewed the resident's note and agree with the documented findings and plan of care HPI/CC.
CVS: S1-S2 normal, sm aa and apex
Chest: decreased at bases
Abdomen: Soft, NT / Bowel sounds present
Extremities: mild edema, normal pulses
METAL TURNER: Non focal exam
#Chest pain
Coronary artery disease with history of CABG
Elevated troponin
Continue IV heparin
Cardiac catheterization today 02/06/24- -Cardiac cath-right dominance ablation with chronic total occlusion of RCA, 30% stenosis ostium of the left main, 70% lesion in the proximal LAD, 70% lesions in the proximal circumflex, 70% lesion in the ostium
and midportion of OM1 and a string of pearls group of 90% lesion in the mid circumflex. LVEDP 24 mmHg, wedge pressure of 25 mmHg. Moderate to severe arctic valve stenosis.
Continue aspirin, beta-timoteo, statin
Diuresis
TAVR evaluation.
# Acute on chronic heart failure. Ejection fraction
Likely secondary to aortic stenosis and diastolic dysfunction
Continue IV diuretics with daily weight monitoring
Echo done October 2023 with LVEF 55-60%, stage III diastolic dysfunction and valvular disease as noted.
Chest x-ray reviewed by me-bilateral effusions and pulmonary edema
# Hypokalemia-replace IV
# Hypertension-continue metoprolol, olmesartan as outpatient. Hold HCTZ.
# Benign prostate hypertrophy-continue Flomax. History of TURP. As needed bladder scan
# History of CVA
# GERD/Hiatal Hernia
# Osteoarthritis/scoliosis/spinal stenosis
# Ex-smoker
# DVT prophylaxis-heparin
# CODE STATUS-full code
Original Note:
Today's Communication/Plan
-
Cardiac cath planned for today, recommendations to follow results
Assessment / Plan
Assessment / Plan
Assessment:
Patient is an 88y M with PMH significant for ASCVD, CHF and who presents to ED complaining of chest pain.
Plan:
#Type II [place]
-Chest pain with exertion on admission, known coronary artery disease, status post CABG x 4 vessel in 2018
-Resolved
-Troponin is trending down
-IV heparin
-Continue ASA, beta-timoteo, statin,
-Status postcardiac catheterization 02/06/2024
#aortic stenosis
-Chronic, moderate to severe
-Begin TAVR evaluation given admission with heart failure symptoms in the context of depressed aortic valve area.
-Cardiology following
#Acute on Chronic HFpEF
-Mild exacerbation based on recent dyspnea, CXR findings, small bilateral pleural effusions, worsening LE edema and elevated proBNP on admission
-Past medical history valvular Heart Disease, Severe
-Continue IV Lasix diuresis 20 mg twice daily
-Start SGLT2 inhibitor 10 mg daily
-Lower extremity edema resolved, no longer short of breath, has lost approximately 7 kg during his stay
-Echo done October 2023 with LVEF 55-60%, stage III diastolic dysfunction and valvular disease as noted.
#Prolonged CT interval
-First-degree AV block seen on EKG
-Follow on telemetry
#Benign Hypertension
-Stable.
-Hold HCTZ while on IV Lasix.
-Continue other outpatient meds with holding parameters.
#BPH
-Stable.
-Continue tamsulosin.
-Bladder scan protocol.
DVT Prophylaxis: On therapeutic heparin.
Code Status: Full
Anticipated Discharge: 24 - 48 hours
Subjective/Interval History
-
Date of Service: February 06, 2024
Patient n.p.o. after midnight
Cardiac cath planned for today
Objective Data
-
Labs:
Laboratory Results
02/06/24 02/06/24
04:17 10:55
WBC 6.1
Hgb 13.0
Hct 37.0 L
Plt Count 213
APTT 112.2 H Pending
Sodium 138
Potassium 3.4 L
Chloride 103
Carbon Dioxide 29
BUN 22 H
Creatinine 0.9
Glucose 96
Calcium 9.6
Vital Signs:
Vital Signs
Temp Pulse Resp BP Pulse Ox
98 F 59 16 154/60 95
02/06/24 04:18 02/06/24 09:15 02/06/24 04:18 02/06/24 09:15 02/06/24 04:18
I&O
02/05/24 02/06/24 02/07/24
06:59 06:59 06:59
Intake Total 300 / 300
Output Total 1250 / 1250 2099 / 2100
Balance -950 / -950 -2100 / -2100
Review of Systems
-
History Source: Patient
Constitutional: Reports No Symptoms
Respiratory: Reports No Symptoms
Cardiac: Denies Chest Pain, Diaphoresis or Palpitations
Abdomen/GI: Reports No Symptoms; Denies Abdominal Pain, Nausea, Vomiting or Diarrhea
Genitourinary: Reports No Symptoms
Musculoskeletal: Reports No Symptoms; Denies Edema
Physical Exam
-
General: Well Developed, Well Nourished, No Apparent Distress and Comfortable
Respiratory: Clear to Auscultation
Cardiac: Regular Rhythm and S1/S2
GI: Soft, Nontender, Nondistended and Normal Bowel Sounds
Musculoskeletal: No Edema; Negative Edema, Right Lower Extrem or Edema, Left Lower Extrem
Neuro: Awake, Alert, Oriented and AO x 3
Psych: Calm and Intact Judgement/Insight
Data Reviewed
-
Diagnostic Radiology: Report Reviewed by me and Discussed with Physician
Labs: Labs Reviewed by me and Discussed with Physician
[2024-02-06] MEDS: KCL 270 MEQ IV (11:58)
[2024-02-06 12:04] LABS: APTT 33.9 Sec (23.4-35.0)
--- NOTE | 2024-02-06 12:10 | CM ---
Reviewed chart. Met with Mr. Martínez to review discharge plans. He states prior to admission he resides with his spouse in a bi-level home with two steps to enter. He states he has four steps to the second floor and 6 steps to the lower level. He
states he has independent in ambulation until two wekks ago and he is currently using a single point cane. He states he has a single point cane and rolling walkers at home. He states he has a prescription plan and uses [facility]. Telephone
call to [employer] [facility] to check on co-pay for Farxiga and Jardiance. Both need a prior admission- Auth phone number is ([phone]). If approved by insurance Farxiga would be $27.58 a month and $40.00 for a 90 day supply via mail order.
Jardiance is $21.04 a month and $40.00 for 90 day via mail order. He states he has had [facility] in the past. He would be agreeable to [facility] if indicated. Medical work-up in progress. The discharge plan is to return home with his spouse
and [facility] if indicated when medically stable.
[2024-02-06] MEDS: TOPROL XL 25 MG PO (13:03)
--- NOTE | 2024-02-06 14:38 | W.PN.CD ---
Today's Communication / Plan
-
Cardiac catheterization for clarification of coronary anatomy and filling pressures.
Impression / Plan
-
Impression/Plan: 88M with coronary artery disease (CABG x4, 2018), moderate to severe aortic stenosis, post-CABG paroxysmal atrial fibrillation (briefly on apixaban), hypertension, dyslipidemia, GERD, and former smoker admitted with symptomatic
aortic valve stenosis/HFpEF and upper chest tightness.
#Shortness of breath
-Acute on chronic.
-Multifactorial. DDx includes ischemia, progressive aortic stenosis, and HFpEF or a mixture of all (which is most likely).
#Abnormal troponin, type unknown
-Could be in the setting of severe aortic stenosis and HFpEF or CAD.
-Troponin peaked at 0.103, now trending down.
-Continue heparin drip and aspirin.
-Cardiac catheterization as a preamble to TAVR.
#HFpEF
-Acute on chronic.
-ProBNP 5790 and CXR with small pleural effusions.
-Continue furosemide 20mg IV BID.
-Start dapagliflozin 10 mg daily.
-We will assess filling pressures at the time of catheterization.
#Aortic stenosis
-Chronic.
-Moderate to severe.
-Echocardiogram in October with peak/mean gradients of 38/22 mmHg with JANUARY 0.9 cm� with mild to moderate aortic regurgitation.
#Mildly dilated aortic root
-Chronic.
-SoV 4.1 cm by TTE 10/2023.
#CAD
-Chronic, possibly unstable.
-S/P CABG x 4 (STERN�LAD; SVG�RPD; SVG�OM1, OM 2) 02/[address] Stauffer.
-Anginal equivalent was shortness of breath
-Continue ASA & statin.
-Cardiac catheterization to clarify coronary anatomy today.
#Prolonged [place] interval
-Follow telemetry and EKG.
#Paroxysmal atrial fibrillation, brief after CABG, completed short-term apixaban
#Hypertension, BP stable on metoprolol succinate and olmesartan
#Dyslipidemia, LDL currently 25 on atorvastatin 40 mg
#Mild to moderate tricuspid regurgitation, PASP 40-45 mmHg
#Prediabetes, HgbA1c 5.8%
#Former smoker, continued cessation recommended
Subjective/Interval History:
No acute events.
No subjective complaints.
Weight is down 1.2 kg.
Mildly to moderately hypertensive (150's systolic).
DATA:
TTE, 11/16/2023:
CONCLUSIONS
-Estimated left ventricular ejection fraction is 55-60%. Normal regional wall
motion. Stage III diastolic dysfunction suggestive of restrictive filling
pattern and increased filling pressures.
-Normal right ventricular size and function.
-Severely dilated left atrium.
-Mild to moderate mitral regurgitation.
-Moderate to severe aortic stenosis peak/mean gradients are 38/22 mmHg,
calculated JANUARY is 0.9 cm. Mild to moderate aortic regurgitation.
-Mild to moderate tricuspid regurgitation. Estimated pulmonary artery pressure
of 40-45 mmHg.
-Mildly dilated aortic root (SOV 4.1 cm).
-The IVC is dilated and does not collapse.
Compared to previous echo on 11/10/2022, progressive aortic stenosis is noted
(previous peak/mean gradients 37/21 mmHg, calculated JANUARY 1.2 cm2).
Physical Exam
Vital Signs/Labs
Vital Signs
Temp Pulse Resp BP Pulse Ox
36.7 C 59 18 150/69 95
02/06/24 11:34 02/06/24 13:03 02/06/24 09:05 02/06/24 13:03 02/06/24 11:34
02/05/24 02/06/24 02/07/24
11:59 11:59 11:59
Actual Weight 81.7 kg 80.5 kg
02/06/24 04:17
02/06/24 04:17
APTT 33.9 Sec (23.4-35.0) 02/06/24 11:31
Triglycerides 76 mg/dl (10-149) 02/04/24 03:11
LDL Cholesterol, Calc 25 mg/dl 02/04/24 03:11
VLDL Cholesterol, Calc 15 mg/dl (0-30) 02/04/24 03:11
HDL Cholesterol 42 mg/dl 02/04/24 03:11
02/03/24
16:27
Ihq-Y-Lwknrhxxtvq Pept 5790
LAB Results
02/03/24 02/03/24 02/04/24
16:27 21:15 03:11
Troponin I 0.077 H* 0.086 H* 0.103 H*
02/04/24 02/04/24 02/04/24
11:17 15:30 21:30
Troponin I 0.081 H* Cancelled Cancelled
Physical Exam
Constitutional: No acute distress and Comfortable
EENT: Anicteric and Moist mucous membranes
Cardiovascular: Rhythm & rate is regular, Pedal edema is absent, JVD pressure is normal, Systolic murmur present and S1S2 is normal
Respiratory: Respiratory effort normal, Lungs clear to auscul., Wheeze Absent, Crackles Absent and Rhonchi Absent
GI: Soft, Distention absent, Flat, Non tender and Normal bowel sounds
Neuro/Psych: AO x 3
Data Reviewed
-
Date of Service: February 06, 2024
Medical Decision Making: Reviewed Test Results, Independent Historian Assessment and Test Interpretation
EKG: Tracing Personally Visualized and interpreted and Report Reviewed by me
Echo: Report Reviewed by me
X-Ray/CT/US/MRI/NUC/PET: Image Personally Visualized and interpreted and Report Reviewed by me
Medical Tests (PFT, Pathology etc): Image Personally Visualized and interpreted and Report Reviewed by me
Labs: Labs Reviewed by me
--- NOTE | 2024-02-06 16:15 | ITS.CL.CATH ---
Band Saw Operator - Catheterization
Cardiac Catheterization
Procedure Report:
CARDIAC CATHETERIZATION REPORT
Date of Procedure: 02/06/2024
Referring: Ken Mireles M.D.
Indication: Known coronary artery disease, moderate to severe aortic valve stenosis.
PROCEDURE:
1. Right heart catheterization.
2. Left heart catheterization.
3. Coronary angiography.
4. Bypass angiography.
5. Aortic valve interrogation.
ACCESS:
6 Prydeinig left radial artery.
5 Prydeinig right antecubital vein.
CATHETERS:
1. 5 Prydeinig balloon wedge.
2. 5 Prydeinig ANAIS.
3. 5 Prydeinig JL 4.
4. 5 Prydeinig JR4.
5. 5 Prydeinig AL-1.
6. 6 Prydeinig Santos dual-lumen pigtail catheter.
HEMODYNAMIC DATA
Weight (kg): 80.3
AO (s/d/x mmHg): 144/60/92
LV (s/x mmHg): 170/24
PCWP (a/v/x mmHg): 28/48/25
PA (s/d/x mmHg): 62/25/37
RV (s/x mmHg): 62/12
RA (a/v/x mmHg): 16/17/14
SVC SvO2 (%): 69.4
PA SvO2 (%): 64.0
SaO2 (%): 90.9
Hbg (g/dL): 14.0
CO (L/min): 4.11
CI (L/min/m2): 2.10
TPG (mmHg): 12
PVR (Joel Units): 2.92
SVR (dynes*seconds*cm^-5): 1518
AVO2 Diff (Volume %): 5.12
AV gradient (x, mmHg): 23.74
AV area (cm2): 0.83
LEFT VENTRICULOGRAPHY: Not performed.
CORONARY ANGIOGRAPHY
Dominance: Right.
Left Main: Large size, trifurcating vessel. There is 30% stenosis in the ostium of the vessel with some poststenotic dilation.
LAD: Normal size vessel giving rise to 2 diagonals. There is a 70% lesion in the proximal vessel around the origin of the first diagonal. The distal vessel is supplied by a patent STERN graft.
Ramus: Small, 1.5 mm vessel supplying the proximal anterolateral wall. There is no coronary artery disease.
Circumflex: Normal size, nondominant vessel giving rise to 2 significant obtuse marginals. There are tandem 70% lesions in the proximal circumflex. There is 70% lesions in the ostium and midportion of OM1, proximal to the graft anastomosis.
There are a string of pearls group of 90% lesions in the mid circumflex immediately distal to the origin of OM1. OM1 and OM 2 are supplied by a sequential SVG graft.
RCA: Normal size, dominant vessel. The vessel is chronically totally occluded at its origin. The distal vessel supplied by patent vein graft.
BYPASS GRAFT ANGIOGRAPHY
STERN to mid LAD: Normal size graft with end-to-side anastomosis to the mid LAD. There is no evidence of stenosis or graft degeneration.
Sequential SVG to OM1 to OM2: Large size graft with olmk-pb-ihur anastomosis to OM1 and end-to-side anastomosis to OM 2. There is no evidence of stenosis or graft degeneration.
SVG to RPDA: Normal size graft with end-to-side anastomosis to the mid RPDA. There is no stenosis or graft degeneration.
INTERVENTIONS
None.
Closure Device: Vascular band for the left radial artery, manual pressure for the right antecubital vein.
Radiation dose (mGy): 803.43
DAP (cm2.Gy): 65.1662
Fluoroscopy time (minutes): 8.3
Sedation time (minutes): 35
CONCLUSIONS:
1. Right dominant circulation with chronic total occlusion of the RCA, 30% stenosis in the ostium of the left main, 70% lesion in the proximal LAD, tandem 70% lesions in the proximal circumflex, 70% lesions in the ostium and midportion of OM1 and a
string of pearls group of 90% lesions in the mid circumflex immediately distal to the origin of OM1, status post prior CABG (patent STERN to LAD, patent SVG to RPDA, patent sequential SVG to OM1 to OM 2).
2. Severely elevated filling pressures (LVEDP = 24 mmHg, PCWP = 25 mmHg at 80.3 kg).
3. Preserved cardiac index (2.10 L/min/m�).
4. Moderate to severe aortic valve stenosis (mean gradient 23.74 mmHg, aortic valve area 0.83 cm�).
RECOMMENDATIONS:
1. Expectant management after cardiac catheterization via left radial and right antecubital approach.
2. Limited weight bearing on the left wrist for one week.
3. Continue diuresis.
4. Guideline directed medical therapy as hemodynamics will allow.
5. Continue secondary prevention.
6. Begin TAVR evaluation given admission with heart failure symptoms in the context of depressed aortic valve area.
Copy to: Ken Mireles M.D., Timothy Anglin M.D., Melvin Khan, Indra.Martina.
Manav Lea DO, FACC, FACP
[2024-02-06] MEDS: LOVENOX 40 MG SC (18:28)
[2024-02-06] MEDS: NSS 1000 IV (18:29)
[2024-02-06] MEDS: FLOMAX 0.4 MG PO (22:36)
[2024-02-06] MEDS: LIPITOR 40 MG PO (22:36)
[2024-02-07] VITALS (7 sets, daily range): BP systolic 114–146; BP diastolic 58–72; BMI 26.0
[2024-02-07 05:17] LABS: Hematocrit 35.8 % (39.0-52.0); Hemoglobin 12.7 g/dL (13.0-18.0); Mean Corp Hgb Conc. 35.5 g/dL (33.0-37.0); Mean Corpuscular Hgb 33.3 pg (27.0-31.0); Mean Platelet Volume 10.6 fL (7.4-10.4); Platelet Count 217 10^3/uL (130-400); Red Blood Cell Count 3.81 10^6/uL (4.70-6.10); Red Cell Dist. Width 12.3 % (11.5-14.5); White Blood Cell Count 6.9 10^3/uL (4.8-10.8)
[2024-02-07 05:44] LABS: Blood Urea Nitrogen 21 mg/dl (9-20); Calcium 9.6 mg/dl (8.4-10.2); Carbon Dioxide 26 mmol/L (22-30); Chloride 105 mmol/L (98-107); Estimated Creatinine Clearance 58 ml/min; Glucose 88 mg/dl (70-99); Potassium 3.9 mmol/L (3.5-5.1); Sodium 138 mmol/L (135-145); eGFR > 60.00
--- NOTE | 2024-02-07 06:35 | PTCARENOTE ---
Received patient at change of shift. VSS. NSR/Sinus lester with first degree and PVCs on monitor with occasional idioventricular rhythm. TR band removed from left radial cath site at 2034 with no complications noted. Site covered with gauze and
Tegaderm. Education provided on activity restrictions and patient verbalizes understanding. Right brachial dressing C/D/I. Call mart within reach.
--- NOTE | 2024-02-07 08:13 | W.PN.CD ---
Today's Communication / Plan
-
Increase furosemide to 40 mg IV BID for today.
Change furosemide to 40 mg PO PO BID tomorrow.
Start dapagliflozin 10 mg daily.
Case management consult.
TAVR coordinators to see.
Discharge planning.
Impression / Plan
-
Impression/Plan: 88M with coronary artery disease (CABG x4, 2018), moderate to severe aortic stenosis, post-CABG paroxysmal atrial fibrillation (briefly on apixaban), hypertension, dyslipidemia, GERD, and former smoker admitted with symptomatic
aortic valve stenosis/HFpEF and upper chest tightness.
#Shortness of breath
-Acute on chronic.
-Multifactorial. DDx includes ischemia, progressive aortic stenosis, and HFpEF or a mixture of all (which is most likely).
#Abnormal troponin, type unknown
-Could be in the setting of severe aortic stenosis and HFpEF or CAD.
-Troponin peaked at 0.103, now trending down.
-Continue heparin drip and aspirin.
-Cardiac catheterization as a preamble to TAVR.
#HFpEF
-Acute on chronic.
-Severely elevated filling pressures at cath.
-Increase furosemide to 40 mg IV BID today, then transition to 40 mg PO BID tomorrow in anticipation of discharge.
-Continue metoprolol and olmesartan.
-Start dapagliflozin 10 mg daily.
-Case management consult.
#Aortic stenosis
-Chronic.
-Moderate to severe.
-Echocardiogram in October with peak/mean gradients of 38/22 mmHg with JANUARY 0.9 cm� with mild to moderate aortic regurgitation.
-Cath confirms moderate/severe (gradient 23.74 mmHg, JANUARY 0.83 cm2).
-Given symptoms, it is appropriate to start TAVR evaluation.
-TAVR coordinators consulted.
-Outpatient CTA C/A/P, CT surgery consultation.
#Mildly dilated aortic root
-Chronic.
-SoV 4.1 cm by TTE 10/2023.
#CAD
-Chronic, possibly unstable.
-S/P CABG x 4 (STERN�LAD; SVG�RPD; SVG�OM1, OM 2) 02/[address] Stauffer.
-Cardiac catheterization shows stable CAD with patent bypass grafts.
-Continue asprin, atorvastatin, metoprolol.
#Prolonged MN interval
-Follow telemetry and EKG.
#Paroxysmal atrial fibrillation, brief after CABG, completed short-term apixaban
#Hypertension, BP stable on metoprolol succinate and olmesartan
#Dyslipidemia, LDL currently 25 on atorvastatin 40 mg
#Mild to moderate tricuspid regurgitation, PASP 40-45 mmHg
#Prediabetes, HgbA1c 5.8%
#Former smoker, continued cessation recommended
#Dispo
-IVU status.
-Full code.
-Discharge planning (probably tomorrow).
Subjective/Interval History:
Cardiac catheterization showed patent CABG grafts and severely elevated filling pressures. It also confirmed moderate/severe (moderate by pressure, severe by JANUARY).
Weight is down 0.6 kg from yesterday, 2.8 kg from admission.
Feels better.
DATA:
TTE, 11/16/2023:
CONCLUSIONS
-Estimated left ventricular ejection fraction is 55-60%. Normal regional wall
motion. Stage III diastolic dysfunction suggestive of restrictive filling
pattern and increased filling pressures.
-Normal right ventricular size and function.
-Severely dilated left atrium.
-Mild to moderate mitral regurgitation.
-Moderate to severe aortic stenosis peak/mean gradients are 38/22 mmHg,
calculated JANUARY is 0.9 cm. Mild to moderate aortic regurgitation.
-Mild to moderate tricuspid regurgitation. Estimated pulmonary artery pressure
of 40-45 mmHg.
-Mildly dilated aortic root (SOV 4.1 cm).
-The IVC is dilated and does not collapse.
Compared to previous echo on 11/10/2022, progressive aortic stenosis is noted
(previous peak/mean gradients 37/21 mmHg, calculated JANUARY 1.2 cm2).
Cardiac Catheterization, 02/06/2024:
CONCLUSIONS:
1. Right dominant circulation with chronic total occlusion of the RCA, 30% stenosis in the ostium of the left main, 70% lesion in the proximal LAD, tandem 70% lesions in the proximal circumflex, 70% lesions in the ostium and midportion of OM1 and a
string of pearls group of 90% lesions in the mid circumflex immediately distal to the origin of OM1, status post prior CABG (patent STERN to LAD, patent SVG to RPDA, patent sequential SVG to OM1 to OM 2).
2. Severely elevated filling pressures (LVEDP = 24 mmHg, PCWP = 25 mmHg at 80.3 kg).
3. Preserved cardiac index (2.10 L/min/m�).
4. Moderate to severe aortic valve stenosis (mean gradient 23.74 mmHg, aortic valve area 0.83 cm�).
Physical Exam
Vital Signs/Labs
Vital Signs
Temp Pulse Resp BP Pulse Ox
36.4 C 64 18 133/66 96
02/07/24 08:06 02/07/24 04:16 02/07/24 08:06 02/07/24 04:21 02/07/24 08:06
02/05/24 02/06/24 02/07/24
11:59 11:59 11:59
Actual Weight 81.7 kg 80.5 kg 79.9 kg
02/07/24 04:28
02/07/24 04:28
APTT Cancelled 02/06/24 18:15
Magnesium 2.0 mg/dl (1.6-2.3) 02/07/24 04:28
Triglycerides 76 mg/dl (10-149) 02/04/24 03:11
LDL Cholesterol, Calc 25 mg/dl 02/04/24 03:11
VLDL Cholesterol, Calc 15 mg/dl (0-30) 02/04/24 03:11
HDL Cholesterol 42 mg/dl 02/04/24 03:11
02/03/24
16:27
Brl-[id number] Pept 5790
LAB Results
02/04/24 02/04/24 02/04/24
11:17 15:30 21:30
Troponin I 0.081 H* Cancelled Cancelled
Physical Exam
Constitutional: No acute distress and Comfortable
EENT: Anicteric and Moist mucous membranes
Cardiovascular: Rhythm & rate is regular, Pedal edema is absent, JVD pressure is normal, Systolic murmur present and S1S2 is normal
Respiratory: Respiratory effort normal, Lungs clear to auscul., Wheeze Absent, Crackles Absent and Rhonchi Absent
GI: Soft, Distention absent, Flat, Non tender and Normal bowel sounds
Neuro/Psych: AO x 3
Other: Cath Site (Left radial/right antecubital access sites are C/D/I.)
Data Reviewed
-
Date of Service: February 07, 2024
Medical Decision Making: Reviewed Test Results, Independent Historian Assessment and Test Interpretation
EKG: Tracing Personally Visualized and interpreted and Report Reviewed by me
Echo: Tracing Personally Visualized and interpreted and Report Reviewed by me
X-Ray/CT/US/MRI/NUC/PET: Image Personally Visualized and interpreted, Report Reviewed by me and Discussed with Patient
Medical Tests (PFT, Pathology etc): Image Personally Visualized and interpreted, Report Reviewed by me and Discussed with Patient
Labs: Labs Reviewed by me
[2024-02-07] MEDS: BENICAR 20 MG PO ×2 (08:48→19:38)
[2024-02-07] MEDS: PROTONIX 40 MG PO (08:49)
[2024-02-07] MEDS: FARXIGA 10 MG PO (08:49)
[2024-02-07] MEDS: ASPIR LOW (ENTERIC COATED) 81 MG PO (08:49)
[2024-02-07] MEDS: LASIX IV (08:58)
[2024-02-07] MEDS: LASIX 40 MG IV ×2 (09:03→16:44)
--- NOTE | 2024-02-07 09:08 | W.PN.HOSP.TC ---
Addendum entered and electronically signed by Jenifer Craig MD 02/07/24 16:45:
I personally performed a history and physical exam of the patient and discussed management with the resident. I reviewed the resident's note and agree with the documented findings and plan of care HPI/CC.
NO SOB or chest pain
Exam unremarkable except for slight pedal edema
Weight better
Continue IV Lasix
TAVR eval
CAth [place] vessel disease.
Possible discharge tomorrow
D/W Cards
Original Note:
Today's Communication/Plan
-
Continue TAVR discussion with cardiology and CT surgery
Patient expresses that he would like to be discharged
Assessment / Plan
Assessment / Plan
Assessment:
Patient is an 88y M with PMH significant for ASCVD, CHF and who presents to ED complaining of chest pain.
Plan:
# Abnormal troponin, type unknown
-Chest pain with exertion on admission, known coronary artery disease, status post CABG x 4 vessel in 2018
-Resolved
-Troponin on admission 0.077, peaked at 0.103
-Troponin is trending down
-Likely type II NH
-IV heparin
-Continue ASA, beta-timoteo, statin,
-Status postcardiac catheterization 02/06/2024
#aortic stenosis
-Chronic, moderate to severe
-Begin TAVR evaluation given admission with heart failure symptoms in the context of depressed aortic valve area.
-Await further recommendations by cardiology and CT surgery regarding TAVR
-Cardiology following
#Acute on Chronic HFpEF
-Mild exacerbation based on recent dyspnea, CXR findings, small bilateral pleural effusions, worsening LE edema and elevated proBNP on admission
-Past medical history valvular Heart Disease, Severe
-Continue IV Lasix diuresis 20 mg twice daily
-Start SGLT2 inhibitor 10 mg daily
-Lower extremity edema is trace, no longer short of breath, has lost approximately 3 kg during his stay
-Echo done October 2023 with LVEF 55-60%, stage III diastolic dysfunction and valvular disease as noted.
#Prolonged HI interval
-First-degree AV block seen on EKG
-Follow on telemetry
#Benign Hypertension
-Stable.
-Hold HCTZ while on IV Lasix.
-Continue other outpatient meds with holding parameters.
#BPH
-Stable.
-Continue tamsulosin.
-Bladder scan protocol.
DVT Prophylaxis: On therapeutic heparin.
Code Status: Full
Data:
Cardiac catheterization 02/06/2024, results:
CONCLUSIONS:
1. Right dominant circulation with chronic total occlusion of the RCA, 30% stenosis in the ostium of the left main, 70% lesion in the proximal LAD, tandem 70% lesions in the proximal circumflex, 70% lesions in the ostium and midportion of OM1 and a
string of pearls group of 90% lesions in the mid circumflex immediately distal to the origin of OM1, status post prior CABG (patent STERN to LAD, patent SVG to RPDA, patent sequential SVG to OM1 to OM 2).
2. Severely elevated filling pressures (LVEDP = 24 mmHg, PCWP = 25 mmHg at 80.3 kg).
3. Preserved cardiac index (2.10 L/min/m�).
4. Moderate to severe aortic valve stenosis (mean gradient 23.74 mmHg, aortic valve area 0.83 cm�).
RECOMMENDATIONS:
1. Expectant management after cardiac catheterization via left radial and right antecubital approach.
2. Limited weight bearing on the left wrist for one week.
3. Continue diuresis.
4. Guideline directed medical therapy as hemodynamics will allow.
5. Continue secondary prevention.
6. Begin TAVR evaluation given admission with heart failure symptoms in the context of depressed aortic valve area.
Anticipated Discharge: 24 - 48 hours
Subjective/Interval History
-
Date of Service: February 07, 2024
Status postcardiac catheterization, patient restarted on lower cholesterol diet
Objective Data
-
Labs:
Laboratory Results
02/06/24 02/07/24
18:15 04:28
WBC 6.9
Hgb 12.7 L
Hct 35.8 L
Plt Count 217
APTT Cancelled
Sodium 138
Potassium 3.9
Chloride 105
Carbon Dioxide 26
BUN 21 H
Creatinine 0.9
Glucose 88
Calcium 9.6
Vital Signs:
Vital Signs
Temp Pulse Resp BP Pulse Ox
97.6 F 64 18 133/66 96
02/07/24 08:06 02/07/24 04:16 02/07/24 08:06 02/07/24 04:21 02/07/24 08:06
I&O
02/06/24 02/07/24 02/08/24
06:59 06:59 06:59
Intake Total 363 / 363
Output Total 2100 / 2100 1500 / 1500 500 / 500
Balance -2100 / -2100 -1137 / -1137 -500 / -500
Review of Systems
-
History Source: Patient
Constitutional: Reports No Symptoms
Respiratory: Reports No Symptoms; Denies Trouble Breathing
Cardiac: Reports No Symptoms; Denies Chest Pain
Abdomen/GI: Reports No Symptoms; Denies Abdominal Pain
Musculoskeletal: Reports Edema
Physical Exam
-
General: Well Developed, Well Nourished, No Apparent Distress and Comfortable
Respiratory: Clear to Auscultation
Cardiac: Regular Rhythm and Murmur
GI: Soft, Nontender, Nondistended and Normal Bowel Sounds
Musculoskeletal: Edema, Right Lower Extrem (Trace) and Edema, Left Lower Extrem (Trace)
Skin: Warm and Dry
Neuro: Awake, Alert, Oriented and AO x 3
Psych: Calm and Intact Judgement/Insight
Data Reviewed
-
Medical Tests (Nuc Med, Echo etc): Report Reviewed by me and Discussed with Physician
Labs: Labs Reviewed by me and Discussed with Physician
--- NOTE | 2024-02-07 09:37 | W.DCSUMMARY ---
Discharge Summary
Discharge Data
Date of Admission: 02/03/24
Date of Discharge: 02/08/24
-
Pending Results: No
Hospital Course
Discharging Physician : Rafa Gunn
Disposition : Home
Primary care physician : Addison Khan
Principal Discharge diagnosis : Acute on chronic congestive heart failure
Chronic Discharge diagnosis : ASCVD, hypertension, severe aortic stenosis, mild mitral regurgitation, mild tricuspid regurgitation, chronic heart failure preserved ejection fraction, BPH
Hospital Course : 88-year-old male with past medical history for significant ASCVD, severe aortic stenosis, status post four-vessel CABG in 2018 and CHF presented to the ED complaining of chest pain as well as shortness of breath. Patient was
admitted to telemetry. On admission troponins were elevated to 0.077. Troponins later peaked at 0.103 and down trended. On admission patient's proBNP was 5790, chest x-ray showed small bilateral pleural effusions and patient had lower extremity
edema. Echo from October of this year was reviewed and noted that patient had heart failure with preserved ejection fraction LVEF 55 to 60%, stage III diastolic dysfunction and severe valvular disease. Cardiology evaluated the patient and
recommended starting on 40 IV Lasix for diuresis. This was later changed to 20 IV twice daily. Cardiology also arranged for a cardiac catheterization, as it is likely the patient will need to undergo TAVR. Patient had his cardiac catheterization
on 02/06/2024. Results were that his bypass graft is open, patent, and looks unchanged from previous. Patient was started on 10 mg PO Dapagliflozin for his heart failure with preserved ejection fraction. Patient had transient episode of
hypokalemia, that was repleted IV. CT surgery set the patient up with follow-up regarding his TAVR including the evaluation process. He was given a TAVR education booklet with contact information. He was written a prescription for a follow-up BMP,
CT TAVR scan and subsequent consult appoint with Dr. Sunshine. At his request, patient will be discharged home to follow-up outpatient with CT surgery. Visiting nurse was offered for patient, however he declined as he lives with his and feels
he does not need a visiting nurse.
Important imaging findings :
Chest x-ray 02/03/2024, impressions:
Trace bilateral pleural effusions.
EKG 02/03/2024, impressions:
Test Reason : CP
Blood Pressure : / mmHG
Vent. Rate : 068 BPM Atrial Rate : 068 BPM
P-R Int : 336 ms QRS Dur : 100 ms
QT Int : 398 ms P-R-T Axes : 046 027 262 degrees
QTc Int : 423 ms
SINUS RHYTHM WITH 1ST DEGREE A-V BLOCK
ST and T WAVE ABNORMALITY, CONSIDER LATERAL ISCHEMIA
ABNORMAL ECG
WHEN COMPARED WITH ECG OF 27-MAY-2018 22:48,
CA INTERVAL HAS INCREASED
T WAVE ABNORMALITY HAS WORSENED IN LATERAL LEADS
EKG 02/04/2024, impressions:
Test Reason : CP
Blood Pressure : / mmHG
Vent. Rate : 054 BPM Atrial Rate : 000 BPM
P-R Int : 322 ms QRS Dur : 100 ms
QT Int : 444 ms P-R-T Axes : 000 037 236 degrees
QTc Int : 421 ms
SINUS RHYTHM WITH 1ST DEGREE A-V BLOCK
ST and T WAVE ABNORMALITY, CONSIDER ANTEROLATERAL ISCHEMIA
ABNORMAL ECG
WHEN COMPARED WITH ECG OF 03-FEB-2024 16:19,
JUNCTIONAL RHYTHM HAS REPLACED SINUS RHYTHM
T WAVE INVERSION MORE EVIDENT IN ANTERIOR LEADS
Procedure findings :
Cardiac catheterization 02/06/2024, results:
CONCLUSIONS:
1. Right dominant circulation with chronic total occlusion of the RCA, 30% stenosis in the ostium of the left main, 70% lesion in the proximal LAD, tandem 70% lesions in the proximal circumflex, 70% lesions in the ostium and midportion of OM1 and a
string of pearls group of 90% lesions in the mid circumflex immediately distal to the origin of OM1, status post prior CABG (patent STERN to LAD, patent SVG to RPDA, patent sequential SVG to OM1 to OM 2).
2. Severely elevated filling pressures (LVEDP = 24 mmHg, PCWP = 25 mmHg at 80.3 kg).
3. Preserved cardiac index (2.10 L/min/m�).
4. Moderate to severe aortic valve stenosis (mean gradient 23.74 mmHg, aortic valve area 0.83 cm�).
RECOMMENDATIONS:
1. Expectant management after cardiac catheterization via left radial and right antecubital approach.
2. Limited weight bearing on the left wrist for one week.
3. Continue diuresis.
4. Guideline directed medical therapy as hemodynamics will allow.
5. Continue secondary prevention.
6. Begin TAVR evaluation given admission with heart failure symptoms in the context of depressed aortic valve area.
Discharge Plan
-
Patient Disposition: Home (Routine Discharge)
Discharge Diagnosis/Procedures: Acute on chronic heart failure
Condition: Good
Diet: Low Cholesterol, 2 Gram Sodium and Restrict fluids to 48 oz
Activity: No restrictions
Driving Restrictions: As prior to admission
Bathing Restrictions: None
Blood Work: Please have bloodwork drawn (BMP) on 02/14/2024. This does not need to be fasting. Please have results faxed to [phone].
Others Tests: A CT scan has been scheduled for you at [facility] on 02/21/2024 at 9:30am. Please arrive 15 minutes prior to appointment to register. Please do not eat or drink 3 hours prior and please bring a complete list of your
medications with you.
Specialty Instructions: Weigh Daily- Call MD for wt gain/loss 3 lbs overnight/5 lbs in 1 week
Activity Restrictions/Additional Instructions:
If you have your own teeth please schedule an appointment with your dentist. You will require dental clearance prior to your valve procedure.
Instructions: *CBC Heart Failure Instructions
Referrals:
Lorena Marie CRNP [Specified Professional Personl] - in one week
Danzis,Melvin J., DO [Family Provider] - in less than 1 week
Manav Lea DO [Active] - in one week (Evaluate for TAVR)
Phil Sunshine MD [Active] - 02/28/24 10:00 am
Additional Discharge Medication Instructions: Stop HCTZ
Take dapagliflozin 10 mg once per day by mouth
Take Lasix once per day 40 mg once per day by mouth
Take potassium chloride 20 mg once once per day by mouth
Prescriptions:
New
potassium chloride [Klor-Con] 20 mEq Packet
20 meq PO DAILY Qty: 30 0RF
furosemide 40 mg Tablet
40 mg PO DAILY Qty: 30 0RF
dapagliflozin propanediol 10 mg Tablet
10 mg PO DAILY Qty: 30 0RF
Continued
atorvastatin 40 MG tablet
40 mg PO HS Qty: 30 3RF
tamsulosin 0.4 MG capsule
0.4 mg PO HS Qty: 30 0RF
acetaminophen [Tylenol Extra Strength] 500 MG tablet
1,000 mg PO Q6HPRN PRN (Reason: MILD PAIN)
aspirin 81 MG tablet,delayed release (DR/EC)
81 mg PO DAILY
olmesartan 20 MG tablet
20 mg PO BID
metoprolol succinate 25 MG tablet extended release 24 hr
25 mg PO DAILY@1200
hydrochlorothiazide 12.5 MG tablet
12.5 mg PO DAILY
bethanechol chloride 25 MG tablet
25 mg PO DAILY
omeprazole 20 mg Capsule,Delayed Release(Dr/Ec)
20 mg PO DAILY
Discharge Orders:
Discharge Patient (As Directed); Ordered 02/08/24
Ordered By: Michael Chisholm
Care Plan Goals
Care Plan Goals:
Problem: Readiness for enhanced knowledge related to diagnosis and treatment plan
Goal: Understand your diagnosis and treatment plan needs, including medications if applicable.
Instructions: Know your diagnosis, underlying causes and treatment plan options, including medications if applicable. Consult with your health care team to learn about your diagnosis and treatment plan, including medications if applicable.
Discharge Date and Time
Print Language: MARTINIQUAIS
--- NOTE | 2024-02-07 09:48 | CM ---
Reviewed chart. Met with Mr. Martínez to review co-pay for Farxiga 10 mg po daily. Reviewed retail cost of $27.58 a month or $40.00 for 90 day supply via mail order. He is agreeable to the co-pay. Placed the one month free coupon in his red
discharge folder. Prior to admission he resides with his spouse in a bi-level home. Prior to admission he was ambulating with a single point cane. He has a single point cane and walker at home. He has a prescription plan and uses [facility].
Medical work-up in progress. The discharge plan is to return home with his spouse when medically stable.
[2024-02-07] MEDS: TOPROL XL 25 MG PO (11:53)
--- NOTE | 2024-02-07 12:45 | CONSULT.STRU ---
Consultation
-
Date/Time Consultation Requested: 02/06/2024
Date/Time Consultation Performed: 02/07/2024
Requesting Provider: Manav Lea DO
Performing Provider: NIKKY Shepard
Reason for Consultation: Aortic stenosis/TAVR evaluation
Patient History
Physicians
Family Physician: Melvin Khan
Outpatient Tamping Machine Operator: Timothy Anglin
Primary Tamping Machine Operator: Timothy Anglin
History of Present Illness
Manav Martínez is an 88-year-old male (known to Dr. 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 Stauffer), moderate to severe aortic stenosis, post CABG paroxysmal atrial fibrillation (briefly on
apixaban), hypertension, dyslipidemia, GERD, and former smoker who called triage at the cardiology office on 02/02 with shortness of breath and chest tightness. He was referred to the emergency department. His anginal equivalent prior to CABG was
shortness of breath. He has been having associated lower extremity edema. It gets worse throughout the day but when he wakes in the morning it does not completely resolve. Regarding his chest tightness, this is exertional. It does not radiate.
He endorses associated symptoms of shortness of breath. He is not having any nausea, vomiting, nor diaphoresis with this. He is not having any shortness of breath at rest but he reports it is taking less activity for him to become short of breath
and he needs to recover a little bit longer than last week. He underwent cardiac cath yesterday which showed Right dominant circulation with chronic total occlusion of the RCA, 30% stenosis in the ostium of the left main, 70% lesion in the proximal
LAD, tandem 70% lesions in the proximal circumflex, 70% lesions in the ostium and midportion of OM1 and a string of pearls group of 90% lesions in the mid circumflex immediately distal to the origin of OM1, status post prior CABG (patent STERN to
LAD, patent SVG to RPDA, patent sequential SVG to OM1 to OM 2). Severely elevated filling pressures (LVEDP = 24 mmHg, PCWP = 25 mmHg at 80.3 kg). Preserved cardiac index (2.10 L/min/m�). Moderate to severe aortic valve stenosis (mean gradient 23.74
mmHg, aortic valve area 0.83 cm�). Consultation was requested by Dr. Lea to evaluate for TAVR.
Reviewed the pathophysiology of aortic stenosis with the patient. Explained the treatment options of SAVR and TAVR. Explained the TAVR evaluation process including follow up BMP, CT TAVR scan, CT surgery consult and Heart Team discussion. Provided
with script for BMP next week, script and appointment for CT TAVR, Consult appointment with Dr. Sunshine and a copy of the TAVR education booklet with contact information. Allowed for and answered questions.
Past Medical History
Past Medical History: CAD, GERD, HTN, Hypercholesterolemia and Other (left eye blindness, hiatal hernia, neuropathy nikos feet, psoriasis)
Past Surgical History
Past Surgical History: CABG ((STERN -> mid LAD, R SVG -> RPD, R SVG seq - OM1 & OM2) 03/03/18 ([facility])), Orthopedic (right THR, Carpel tunnel bilateral, multiple back injections) and Urological (TURP)
Dental History
Regular Dental Care - Dr. Bernard Hillman ([place], [place])
Family History
Mother: at Age (101yo, natural causes)
Father: at Age (85yo, [place] after surgical aneurysm repair)
Social History
Alcohol: Occasional (2-3 times a week, 1-2 drinks)
Drug: None
Tobacco: Former Smoker (quit 50 years ago)
Personal:
Living: With Spouse
Employment: Retired
Allergies
Allergy/AdvReac Type Severity Reaction Status Date / Time
apple Allergy Swelling Verified 09/24/20 18:17
Home Medications
�Medication �Instructions �Recorded �Confirmed �Type
atorvastatin 40 mg tablet 40 mg PO HS ##30 03/09/18 02/03/24 Rx
tamsulosin 0.4 mg capsule 0.4 mg PO HS ##30 03/09/18 02/03/24 Rx
acetaminophen 500 mg tablet 1,000 mg PO Q6HPRN PRN MILD PAIN 03/17/18 02/03/24 History
(Tylenol Extra Strength)
aspirin 81 mg tablet,delayed 81 mg PO DAILY Blood Clot 05/22/18 02/03/24 History
release Prevention/Tx
olmesartan 20 mg tablet 20 mg PO BID Blood Pressure 05/22/18 02/03/24 History
bethanechol chloride 25 mg tablet 25 mg PO DAILY bladder 09/24/20 02/03/24 History
hydrochlorothiazide 12.5 mg tablet 12.5 mg PO DAILY Fluid 09/24/20 02/03/24 History
Retention/Swelling
metoprolol succinate 25 mg 25 mg PO DAILY@1200 Blood Pressure 09/24/20 02/03/24 History
tablet,extended release 24 hr
omeprazole 20 mg capsule,delayed 20 mg PO DAILY GERD 02/03/24 02/03/24 History
release
STS%
STS %: 3.13%
Review of Systems
-
History Source: Patient
General: Reports No Symptoms
HEENT: Reports No Symptoms
Respiratory: Reports SHAW; Denies Cough or PND
Cardiac: Reports CAD and Edema (bilateral LE); Denies Palpitations, Nausea, Vomiting or Diaphoresis
Abdomen/GI: Reports Reflux; Denies Abdominal Pain or Nausea
: Reports No Symptoms
Musculoskeletal: Reports Joint Pain (right hip) and Edema (bilateral LE)
Skin: Reports Other (psoriasis)
Neurological: Reports Other (neuropathy bilateral feet)
Vascular: Reports No Symptoms
Physical Exam
Vital Signs
Temp 97.5 F 02/07/24 11:35
Temp route: Oral 02/07/24 11:35
Pulse 62 02/07/24 11:53
Rhythm: Sinus bradycardia 02/07/24 07:45
With- First Degree Heart Block, PVC's Monomorphic 02/07/24 07:45
Resp Rate 18 02/07/24 11:35
Blood pressure 114/60 02/07/24 11:53
Blood pressure extremity used: Left upper arm 02/07/24 11:35
Position: Sitting 02/07/24 11:35
MAP (cuff-Emily Monitor) 93 02/07/24 08:03
MAP 93 02/05/24 07:55
SaO2 95 02/07/24 11:35
Nasal Cannula flow liters per minute 95 02/04/24 11:58
Oxygen Mode of Delivery Room air 02/07/24 12:13
Can the patient verbally communicate their pain? Yes 02/07/24 07:45
Actual Weight 79.9 kg 02/07/24 04:32
Body Mass Index (BMI) 26.0 02/07/24 04:32
Labs
02/07/24 04:28
02/07/24 04:28
APTT Cancelled 02/06/24 18:15
Hemoglobin A1c 5.8 % (4.0-5.6) H 02/04/24 03:11
Troponin I Cancelled 02/04/24 21:30
[facility] Pept 5790 pg/ml 02/03/24 16:27
Diagnostic Studies
Echocardiogram 11/16/2023:
CONCLUSIONS
-Estimated left ventricular ejection fraction is 55-60%. Normal regional wall
motion. Stage III diastolic dysfunction suggestive of restrictive filling
pattern and increased filling pressures.
-Normal right ventricular size and function.
-Severely dilated left atrium.
-Mild to moderate mitral regurgitation.
-Moderate to severe aortic stenosis peak/mean gradients are 38/22 mmHg,
calculated JANUARY is 0.9 cm. Mild to moderate aortic regurgitation.
-Mild to moderate tricuspid regurgitation. Estimated pulmonary artery pressure
of 40-45 mmHg.
-Mildly dilated aortic root (SOV 4.1 cm).
-The IVC is dilated and does not collapse.
Compared to previous echo on 11/10/2022, progressive aortic stenosis is noted
(previous peak/mean gradients 37/21 mmHg, calculated JANUARY 1.2 cm2).
Indications:
Nonrheumatic aortic (valve) stenosis
Rhythm: Sinus
Portable Study: No
Technical Quality: Good
Contrast: None
BP: 158 / 80
PROCEDURE
A complete Transthoracic Echocardiogram was performed utilizing two-dimensional
evaluation with color flow and spectral Doppler analysis.
FINDINGS
Left Ventricle
Normal left ventricular chamber size. Moderate concentric left ventricular
hypertrophy. Normal left ventricular systolic function. Normal regional wall
motion. Estimated left ventricular ejection fraction is 55-60%. Stage III
diastolic dysfunction suggestive of restrictive filling pattern and increased
filling pressures.
Right Ventricle
Normal right ventricular size and function.
Left Atrium
Severely dilated left atrium. Indexed LA volume is severely abnormal (> 48
mL/m2).
Right Atrium
Moderately dilated right atrium.
Mitral Valve
Mitral valve opens normally. Thickened mitral valve leaflets. Mitral annular
calcification. Mild to moderate mitral regurgitation.
Aortic Valve
Thickened aortic valve with significantly restricted leaflet motion. Moderate
to severe aortic stenosis peak/mean gradients are 38/22 mmHg, calculated JANUARY is
0.9 cm. SVI 31 ml/m2. DI 0.2. Mild to moderate aortic regurgitation.
Tricuspid Valve
Tricuspid valve opens normally. Mild to moderate tricuspid regurgitation.
Estimated pulmonary artery pressure of 40-45 mmHg.
Pulmonic Valve
Structurally normal pulmonic valve. Mild pulmonic regurgitation.
Pericardium\\Pleura
Normal pericardium without effusion.
Aorta
Mildly dilated aortic root (SOV 4.1 cm). Normal ascending aorta.
Other Finding
The IVC is dilated and does not collapse. Interatrial septum is intact with no
evidence of shunting by color flow Doppler.
MEASUREMENTS (Male / Female) Normal Values
2D ECHO
LV Diastolic Diameter PLAX 4.6 cm 4.2 - 5.9 / 3.9 - 5.3 cm
LV Systolic Diameter PLAX 3.3 cm
IVS Diastolic Thickness 1.5 cm 0.6 - 1.0 / 0.6 - 0.9 cm
LVPW Diastolic Thickness 1.5 cm 0.6 - 1.0 / 0.6 - 0.9 cm
LV Relative Wall Thickness 0.7
LVOT Diameter 2.3 cm
LV Ejection Fraction MOD BP 53.7 % >= 55 %
LV Stroke Volume MOD BP 58.0 cm3
LV Ejection Fraction MOD 4C 53.8 %
LV Stroke Volume MOD 4C 57.0 cm3
LV Ejection Fraction 4C AL 56.3 %
LV Stroke Volume 4C AL 61.9 cm3
LV Stroke Volume MOD 2C 53.0 cm3
LV Stroke Volume 2C AL 50.1 cm3
LA Area 4C View 29.4 cm2 <= 20 cm2
LA Length 4C 6.3 cm
LA Volume 110.0 cm3 18 - 58 / 22 - 52 cm3
LA Volume Index 59.9 cm3/m2 16 - 34 cm3/m2
Ascending Aorta Diameter 3.7 cm
M-MODE
Aortic Root Diameter MM 3.9 cm
LA Systolic Diameter MM 5.0 cm
LA Ao Ratio MM 1.3
DOPPLER
AV Peak Velocity 310.0 cm/s
AV Peak Gradient 38.4 mmHg
AV Mean Gradient 23.0 mmHg
AV Velocity Time Integral 71.5 cm
AI Peak Velocity 365.0 cm/s
AI Peak Gradient 53.3 mmHg
AI Pressure Half Time 518.0 ms
LVOT Peak Velocity 66.2 cm/s
LVOT Peak Gradient 1.8 mmHg
LVOT Velocity Time Integral 15.1 cm
LVOT Stroke Volume 62.9 cm3
LVOT Stroke Volume Index 30.5 ml/m2 empty
AV Area Cont Eq vti 0.9 cm2
AV Area Cont Eq pk 0.9 cm2
Mitral E Point Velocity 115.0 cm/s
Mitral A Point Velocity 32.1 cm/s
Mitral E to A Ratio 3.6
LV E' Lateral Velocity 6.1 cm/s
Mitral E to LV E' Lateral Ratio 18.7
LV E' Septal Velocity 5.1 cm/s
Mitral E to LV E' Septal Ratio 22.7
TR Peak Velocity 260.0 cm/s
TR Peak Gradient 27.0 mmHg
Cardiac Catheterization 02/06/2024
HEMODYNAMIC DATA
Weight (kg):80.3
AO (s/d/x mmHg): 144/60/92
LV (s/x mmHg): 170/24
PCWP (a/v/x mmHg): 28/48/25
PA (s/d/x mmHg): 62/25/37
RV (s/x mmHg): 62/12
RA (a/v/x mmHg): 16/17/14
SVC SvO2 (%):69.4
PA SvO2 (%):64.0
SaO2 (%):90.9
Hbg (g/dL):14.0
CO (L/min): 4.11
CI (L/min/m2): 2.10
TPG (mmHg): 12
PVR (Joel Units): 2.92
SVR (dynes*seconds*cm^-5): 1518
AVO2 Diff (Volume %): 5.12
AV gradient (x, mmHg):23.74
AV area (cm2):0.83
LEFT VENTRICULOGRAPHY: Not performed.
CORONARY ANGIOGRAPHY
Dominance: Right.
Left Main: Large size, trifurcating vessel. There is 30% stenosis in the ostium of the vessel with some poststenotic dilation.
LAD: Normal size vessel giving rise to 2 diagonals. There is a 70% lesion in the proximal vessel around the origin of the first diagonal. The distal vessel is supplied by a patent STERN graft.
Ramus:Small, 1.5 mm vessel supplying the proximal anterolateral wall. There is no coronary artery disease.
Circumflex: Normal size, nondominant vessel giving rise to 2 significant obtuse marginals. There are tandem 70% lesions in the proximal circumflex. There is 70% lesions in the ostium and midportion of OM1, proximal to the graft anastomosis. There
are a string of pearls group of 90% lesions in the mid circumflex immediately distal to the origin of OM1. OM1 and OM 2 are supplied by a sequential SVG graft.
RCA: Normal size, dominant vessel. The vessel is chronically totally occluded at its origin. The distal vessel supplied by patent vein graft.
BYPASS GRAFT ANGIOGRAPHY
STERN to mid LAD:Normal size graft with end-to-side anastomosis to the mid LAD. There is no evidence of stenosis or graft degeneration.
Sequential SVG to OM1 to OM2:Large size graft with [id number]-[id number]-[id number] anastomosis to OM1 and end-to-side anastomosis to OM 2. There is no evidence of stenosis or graft degeneration.
SVG to RPDA:Normal size graft with end-to-side anastomosis to the mid RPDA. There is no stenosis or graft degeneration.
INTERVENTIONS
None.
Closure Device: Vascular band for the left radial artery, manual pressure for the right antecubital vein.
Radiation dose (mGy): 803.43
DAP (cm2.Gy): 65.1662
Fluoroscopy time (minutes):8.3
Sedation time (minutes):35
CONCLUSIONS:
1. Right dominant circulation with chronic total occlusion of the RCA, 30% stenosis in the ostium of the left main, 70% lesion in the proximal LAD, tandem 70% lesions in the proximal circumflex, 70% lesions in the ostium and midportion of OM1 and a
string of pearls group of 90% lesions in the mid circumflex immediately distal to the origin of OM1, status post prior CABG (patent STERN to LAD, patent SVG to RPDA, patent sequential SVG to OM1 to OM 2).
2. Severely elevated filling pressures (LVEDP = 24 mmHg, PCWP = 25 mmHg at 80.3 kg).
3. Preserved cardiac index (2.10 L/min/m�).
4. Moderate to severe aortic valve stenosis (mean gradient 23.74 mmHg, aortic valve area 0.83 cm�).
RECOMMENDATIONS:
1. Expectant management after cardiac catheterization via left radial and right antecubital approach.
2. Limited weight bearing on the left wrist for one week.
3. Continue diuresis.
4. Guideline directed medical therapy as hemodynamics will allow.
5. Continue secondary prevention.
6. Begin TAVR evaluation given admission with heart failure symptoms in the context of depressed aortic valve area.
Exam
General: Well Developed, Well Nourished, No Apparent Distress and Comfortable
HEENT: Normocephalic and Moist Mucous Membranes
Neck: Trachea Midline
Respiratory: Clear; Negative Wheezes, Crackles or Rhonchi
Cardiac: S1/S2, Regular Rhythm and Murmur (grade III/ systolic murmur)
GI: Soft, Non Tender, Non Distended and Normal Bowel Sounds
Rectal: Deferred by Provider
Skin: Warm and Dry
Neuro: AO x 3, No Motor Deficits and Nonfocal/Grossly Intact
Extremities: Lower Level Edema (trace bilateral LE) and Pulses (+2 dp pulses)
Lymph: No Lymphadenopathy
Psych: Calm
Assessment / Plan
-
Procedure Type:�Isolated AVR
PERIOPERATIVE OUTCOME ESTIMATE %
Operative Mortality 3.13%
Morbidity & Mortality 11.7%
Stroke 2.49%
Renal Failure 2%
Reoperation 3.51%
Prolonged Ventilation 7.79%
Deep Sternal Wound Infection 0.124%
Long Hospital Stay (>14 days) 7.03%
Short Hospital Stay (<6 days)* 25.9%
Severe Aortic stenosis:
��������������� Continue evaluation for TAVR as outpatient
��������������� BMP 02/14/2024 at
��������������� CT TAVR scan 02/21/2024 0930 at
��������������� CT surgery consult with Dr. Sunshine 02/28/2024
��������������� Heart team discussion at [facility]
Dental Clearance - Dr. Hillman ([place], [place])
Data Reviewed
-
EKG: Report Reviewed by me
[employer] Former Supervisor: Report Reviewed by me and Discussed with Physician
Echo: Report Reviewed by me and Discussed with Physician
Labs: Labs Reviewed by me
Old Records: Reviewed (Cardiology office notes, operative report S/P CABG)
[2024-02-07] MEDS: LOVENOX 40 MG SC (17:38)
--- NOTE | 2024-02-07 20:19 | PTCARENOTE ---
Pt without issues. POC discussed. pt verbalized understanding. SR w/ 1st degree on the monitor. ambulating with a single point cane. b/l cath sites CDI
[2024-02-07] MEDS: LIPITOR 40 MG PO (21:53)
[2024-02-07] MEDS: FLOMAX 0.4 MG PO (21:53)
--- NOTE | 2024-02-08 02:56 | DOWNTIME ---
There was a [employer] Client Physician Primary Care Sports Medicine Downtime on 02/08/2024 from 0100 to 02/08/2024 at 0255. Downtime documentation of patient's care, including medication administrations, has been reconciled in the electronic record per guidelines. Refer to the
patient's paper chart under the miscellaneous tab to see printed paper medication records and downtime forms.
[2024-02-08 05:03] VITALS: BP 126/59
[2024-02-08 06:24] LABS: Blood Urea Nitrogen 26 mg/dl (9-20); Calcium 9.8 mg/dl (8.4-10.2); Carbon Dioxide 27 mmol/L (22-30); Chloride 102 mmol/L (98-107); Estimated Creatinine Clearance 52 ml/min; Glucose 94 mg/dl (70-99); Potassium 3.4 mmol/L (3.5-5.1); Sodium 140 mmol/L (135-145); eGFR > 60.00
[2024-02-08 07:52] VITALS: BP 130/59
[2024-02-08 08:05] VITALS: BMI 25.3
[2024-02-08] MEDS: ASPIR LOW (ENTERIC COATED) 81 MG PO (08:14)
[2024-02-08] MEDS: LASIX 40 MG PO (08:15)
[2024-02-08] MEDS: PROTONIX 40 MG PO (08:15)
[2024-02-08] MEDS: KCL 40 MEQ PO (08:15)
[2024-02-08] MEDS: BENICAR 20 MG PO (08:15)
[2024-02-08] MEDS: FARXIGA 10 MG PO (08:15)
--- NOTE | 2024-02-08 09:13 | PTCARENOTE ---
Assumed care of pt from night RN. Pt received awake and alert, Ox3. VSs, CM shows SB with first degree AVB, POX 98% on RA. Left radial site open to air, right brachial remains CDI, both sites with normal CMS. AM K level=3.4, pt given 40 meq's
KCl as ordered. He denies any pain or discomfort, ambulating in room freely with single point cane. For potential D/C today.
--- NOTE | 2024-02-08 09:15 | W.PN.HOSP.TC ---
Today's Communication/Plan
-
Discharge home with follow-up outpatient
Assessment / Plan
Assessment / Plan
Assessment:
Patient is an 88y M with PMH significant for ASCVD, CHF and who presents to ED complaining of chest pain.
Plan:
# Abnormal troponin, type unknown
-Chest pain with exertion on admission, known coronary artery disease, status post CABG x 4 vessel in 2018
-Resolved
-Troponin on admission 0.077, peaked at 0.103
-Troponin have trending down
-Likely type II [place]
-IV heparin
-Continue ASA, beta-timoteo, statin,
-Status postcardiac catheterization 02/06/2024
#aortic stenosis
-Chronic, moderate to severe
-Begin TAVR evaluation given admission with heart failure symptoms in the context of depressed aortic valve area.
-Await further recommendations by cardiology and CT surgery regarding TAVR
-Cardiology following
#Acute on Chronic HFpEF
-Mild exacerbation based on recent dyspnea, CXR findings, small bilateral pleural effusions, worsening LE edema and elevated proBNP on admission
-Past medical history valvular Heart Disease, Severe
-Continue IV Lasix diuresis 20 mg twice daily
-Start SGLT2 inhibitor 10 mg daily
-Lower extremity edema is trace, no longer short of breath, has lost approximately 3 kg during his stay
-Echo done October 2023 with LVEF 55-60%, stage III diastolic dysfunction and valvular disease as noted.
-Visiting nurse was offered to patient by case management, patient declined
#Hypokalemia
-Potassium 3.4 this a.m.
-Repleted with 40 mill equivalents p.o.
#Prolonged NM interval
-First-degree AV block seen on EKG
-Follow on telemetry
#Benign Hypertension
-Stable.
-Hold HCTZ while on IV Lasix.
-Continue other outpatient meds with holding parameters.
#BPH
-Stable.
-Continue tamsulosin.
-Bladder scan protocol.
DVT Prophylaxis: On therapeutic heparin.
Code Status: Full
Data:
Cardiac catheterization 02/06/2024, results:
CONCLUSIONS:
1. Right dominant circulation with chronic total occlusion of the RCA, 30% stenosis in the ostium of the left main, 70% lesion in the proximal LAD, tandem 70% lesions in the proximal circumflex, 70% lesions in the ostium and midportion of OM1 and a
string of pearls group of 90% lesions in the mid circumflex immediately distal to the origin of OM1, status post prior CABG (patent STERN to LAD, patent SVG to RPDA, patent sequential SVG to OM1 to OM 2).
2. Severely elevated filling pressures (LVEDP = 24 mmHg, PCWP = 25 mmHg at 80.3 kg).
3. Preserved cardiac index (2.10 L/min/m�).
4. Moderate to severe aortic valve stenosis (mean gradient 23.74 mmHg, aortic valve area 0.83 cm�).
RECOMMENDATIONS:
1. Expectant management after cardiac catheterization via left radial and right antecubital approach.
2. Limited weight bearing on the left wrist for one week.
3. Continue diuresis.
4. Guideline directed medical therapy as hemodynamics will allow.
5. Continue secondary prevention.
6. Begin TAVR evaluation given admission with heart failure symptoms in the context of depressed aortic valve area.
Anticipated Discharge: Today
Subjective/Interval History
-
Date of Service: February 08, 2024
No acute events overnight
Patient ready to be discharged
Objective Data
-
Labs:
Laboratory Results
02/08/24
05:07
Sodium 140
Potassium 3.4 L
Chloride 102
Carbon Dioxide 27
BUN 26 H
Creatinine 1.0
Glucose 94
Calcium 9.8
Vital Signs:
Vital Signs
Temp Pulse Resp BP Pulse Ox
98.3 F 56 18 130/59 98
02/08/24 08:05 02/08/24 08:00 02/08/24 08:05 02/08/24 07:52 02/08/24 09:07
I&O
02/07/24 02/08/24 02/09/24
06:59 06:59 06:59
Intake Total 363 / 363 350 / 350
Output Total 1500 / 1500 2425 / 2425
Balance -1137 / -1137 -2074 / -2074
Review of Systems
-
History Source: Patient
Constitutional: Reports No Symptoms
Respiratory: Reports No Symptoms
Cardiac: Reports No Symptoms
Abdomen/GI: Reports No Symptoms
Physical Exam
-
General: Well Developed, Well Nourished, No Apparent Distress and Comfortable
Respiratory: Clear to Auscultation; Negative Rales or Crackles
Cardiac: Regular Rhythm, S1/S2 and Murmur
GI: Soft, Nontender, Nondistended and Normal Bowel Sounds
Musculoskeletal: No Edema (Trace to none)
Neuro: Awake, Alert, Oriented and AO x 3
Psych: Calm and Intact Judgement/Insight
Data Reviewed
-
Labs: Labs Reviewed by me and Discussed with Physician
--- NOTE | 2024-02-08 11:03 | W.PN.CD ---
Today's Communication / Plan
-
Reduced furosemide to 40 mg PO daily rather than BID.
Start KCl 20 mEq daily.
BMP in one week.
TAVR consult completed.
Discharge.
Impression / Plan
-
Impression/Plan: 88M with coronary artery disease (CABG x4, 2018), moderate to severe aortic stenosis, post-CABG paroxysmal atrial fibrillation (briefly on apixaban), hypertension, dyslipidemia, GERD, and former smoker admitted with symptomatic
aortic valve stenosis/HFpEF and upper chest tightness.
#Shortness of breath
-Acute on chronic.
-Multifactorial. DDx includes ischemia, progressive aortic stenosis, and HFpEF or a mixture of all (which is most likely).
#Abnormal troponin, type unknown
-Could be in the setting of severe aortic stenosis and HFpEF or CAD.
-Troponin peaked at 0.103, now trending down.
-Continue heparin drip and aspirin.
-Cardiac catheterization as a preamble to TAVR.
#HFpEF
-Acute on chronic.
-Severely elevated filling pressures at cath.
-Continue metoprolol, olmesartan, dapagliflozin.
-Change furosemide to 40 mg PO daily.
-Add KCl 20 mEq daily.
-BMP in one week.
#Aortic stenosis
-Chronic.
-Moderate to severe.
-Echocardiogram in October with peak/mean gradients of 38/22 mmHg with JANUARY 0.9 cm� with mild to moderate aortic regurgitation.
-Cath confirms moderate/severe (gradient 23.74 mmHg, JANUARY 0.83 cm2).
-Given symptoms, it is appropriate to start TAVR evaluation.
-TAVR coordinators consulted.
-Outpatient CTA C/A/P, CT surgery consultation.
#Mildly dilated aortic root
-Chronic.
-SoV 4.1 cm by TTE 10/2023.
#CAD
-Chronic, possibly unstable.
-S/P CABG x 4 (STERN�LAD; SVG�RPD; SVG�OM1, OM 2) 02/[address] Stauffer.
-Cardiac catheterization shows stable CAD with patent bypass grafts.
-Continue asprin, atorvastatin, metoprolol.
#Prolonged MI interval
-Follow telemetry and EKG.
#Paroxysmal atrial fibrillation, brief after CABG, completed short-term apixaban
#Hypertension, BP stable on metoprolol succinate and olmesartan
#Dyslipidemia, LDL currently 25 on atorvastatin 40 mg
#Mild to moderate tricuspid regurgitation, PASP 40-45 mmHg
#Prediabetes, HgbA1c 5.8%
#Former smoker, continued cessation recommended
#Dispo
-IVU status.
-Full code.
-Discharge.
Subjective/Interval History:
No acute events.
Weight down 2.1 kg from yesterday.
Transitioned to furosemide PO today.
DATA:
TTE, 11/16/2023:
CONCLUSIONS
-Estimated left ventricular ejection fraction is 55-60%. Normal regional wall
motion. Stage III diastolic dysfunction suggestive of restrictive filling
pattern and increased filling pressures.
-Normal right ventricular size and function.
-Severely dilated left atrium.
-Mild to moderate mitral regurgitation.
-Moderate to severe aortic stenosis peak/mean gradients are 38/22 mmHg,
calculated JANUARY is 0.9 cm. Mild to moderate aortic regurgitation.
-Mild to moderate tricuspid regurgitation. Estimated pulmonary artery pressure
of 40-45 mmHg.
-Mildly dilated aortic root (SOV 4.1 cm).
-The IVC is dilated and does not collapse.
Compared to previous echo on 11/10/2022, progressive aortic stenosis is noted
(previous peak/mean gradients 37/21 mmHg, calculated JANUARY 1.2 cm2).
Cardiac Catheterization, 02/06/2024:
CONCLUSIONS:
1. Right dominant circulation with chronic total occlusion of the RCA, 30% stenosis in the ostium of the left main, 70% lesion in the proximal LAD, tandem 70% lesions in the proximal circumflex, 70% lesions in the ostium and midportion of OM1 and a
string of pearls group of 90% lesions in the mid circumflex immediately distal to the origin of OM1, status post prior CABG (patent STERN to LAD, patent SVG to RPDA, patent sequential SVG to OM1 to OM 2).
2. Severely elevated filling pressures (LVEDP = 24 mmHg, PCWP = 25 mmHg at 80.3 kg).
3. Preserved cardiac index (2.10 L/min/m�).
4. Moderate to severe aortic valve stenosis (mean gradient 23.74 mmHg, aortic valve area 0.83 cm�).
Physical Exam
Vital Signs/Labs
Vital Signs
Temp Pulse Resp BP Pulse Ox
36.8 C 56 18 130/59 98
02/08/24 08:05 02/08/24 08:00 02/08/24 08:05 02/08/24 07:52 02/08/24 09:07
02/06/24 02/07/24 02/08/24
11:59 11:59 11:59
Actual Weight 80.5 kg 79.9 kg 77.8 kg
02/07/24 04:28
02/08/24 05:07
APTT Cancelled 02/06/24 18:15
Magnesium 2.0 mg/dl (1.6-2.3) 02/08/24 05:07
Triglycerides 76 mg/dl (10-149) 02/04/24 03:11
LDL Cholesterol, Calc 25 mg/dl 02/04/24 03:11
VLDL Cholesterol, Calc 15 mg/dl (0-30) 02/04/24 03:11
HDL Cholesterol 42 mg/dl 02/04/24 03:11
02/03/24
16:27
Irb-V-Ouzxvmtysup Pept 5790
Physical Exam
Constitutional: No acute distress and Comfortable
EENT: Anicteric and Moist mucous membranes
Cardiovascular: Rhythm & rate is regular, Pedal edema is absent, JVD pressure is normal, Systolic murmur present and S1S2 is normal
Respiratory: Respiratory effort normal, Lungs clear to auscul., Wheeze Absent, Crackles Absent and Rhonchi Absent
GI: Soft, Distention absent, Flat, Non tender and Normal bowel sounds
Neuro/Psych: AO x 3
Other: Cath Site (Left radial access site is C/D/I.)
Data Reviewed
-
Date of Service: February 08, 2024
Medical Decision Making: Reviewed Test Results, Independent Historian Assessment, Test Interpretation and Review of Case with other Provider
EKG: Tracing Personally Visualized and interpreted and Report Reviewed by me
Echo: Tracing Personally Visualized and interpreted and Report Reviewed by me
X-Ray/CT/US/MRI/NUC/PET: Image Personally Visualized and interpreted and Report Reviewed by me
Medical Tests (PFT, Pathology etc): Image Personally Visualized and interpreted and Report Reviewed by me
Labs: Labs Reviewed by me
Old Records: Reviewed
--- NOTE | 2024-02-08 11:47 | CM ---
Reviewed chart. Received consult fir [facility]. Met with Mr. Martínez to review discharge plans, [facility]. He states he does not feel he will need [facility] and is declining at this time. He is aware that if he changes his mind about [facility] he will contact his PCP. Medical work-up in progress. The discharge plan is to return home with his spouse when medically stable.
[2024-02-08 12:23] VITALS: BP 128/57
[2024-02-08] MEDS: TOPROL XL 25 MG PO (12:25)
--- NOTE | 2024-02-08 14:11 | PTCARENOTE ---
All D/C info reviewed with pt, all questions answered. D/C'd home with family member.
--- NOTE | 2024-02-09 10:54 | W.HF.CON ---
Heart Failure
- LV Function
Left ventricular function study result: LV Ejection fraction >40% (ECHO 11/16/23)
Ejection Fraction Percentage: 55-60
- ARNI
Patient already on ARNI: No
Heart Failure ARNI Not Indicated: LV Ejection Fraction >/= 40%
- ACEI/ARB
Patient already on ACEI/ARB: Yes
- Beta Kari
Patient already on Evidence Based Beta Kari: Yes
- Mineralocorticord Receptor Antagonist
Patient already on MRA: No
Heart Failure MRA Not Indicated: LV Ejection Fraction > 40%
- SGLT-2 Inhibitor
Patient already on SGLT-2 Inhibitor: Yes
- Afib Anticoagulation
Patient already on Anticoagulation for Afib: No
Heart Failure Afib Anticoagulation Contraindication: Patient Refusal (AFib post CABG completed short term anticoagulation)
- NYHA CHF Classification
NYHA CHF Classification Level: Class III - Symptoms w/ min exertion, interferes w/ nml daily activity (mod/severe )
- ACC/AHA Stage
ACC/AHA Stage: Stage C: Symptomatic Heart Failure
== END 2024-02-08 14:36 | disposition home or self-care (01) | DRG 280 ==
LOC: IVU 19:59
PROVIDERS: Internal Medicine; Internal Medicine Gastroenterology; ADMITTING PHYSICIAN Hospitalist; ATTENDING PHYSICIAN Hospitalist; CONSULT PHYSICIAN Internal Medicine; EMERGENCY PHYSICIAN Emergency Medicine; FAMILY PHYSICIAN Family Medicine
PROC: 4A023N8 Measurement of Cardiac Sampling and Pressure, Bilateral, Percutaneous Approach (ICD-10-PCS; 2024-02-06)
PROC: B2131ZZ Fluoroscopy of Multiple Coronary Artery Bypass Grafts using Low Osmolar Contrast (ICD-10-PCS; 2024-02-06)
PROC: B2111ZZ Fluoroscopy of Multiple Coronary Arteries using Low Osmolar Contrast (ICD-10-PCS; 2024-02-06)
DX: I11.0 Hypertensive heart disease with heart failure (principal); I50.33 Acute on chronic diastolic (congestive) heart failure; I21.A1 Myocardial infarction type 2; I25.10 Atherosclerotic heart disease of native coronary artery without angina pectoris; E78.00 Pure hypercholesterolemia, unspecified; E87.6 Hypokalemia; K21.9 Gastro-esophageal reflux disease without esophagitis; I08.3 Combined rheumatic disorders of mitral, aortic and tricuspid valves; N40.0 Benign prostatic hyperplasia without lower urinary tract symptoms; R73.03 Prediabetes; Z95.1 Presence of aortocoronary bypass graft; I25.2 Old myocardial infarction; Z87.891 Personal history of nicotine dependence; Z79.82 Long term (current) use of aspirin; Z79.899 Other long term (current) drug therapy
CPT/HCPCS: 71046; 80048; 80053; 80061; 83036; 83735; 83880; 84484; 85025; 85027; 85730; 93005; 93461; 99284; C1769; C1894; Q9967

== ENCOUNTER → 2024-02-14 10:39 | Outpatient (REF) | payer MEDICARE, BC, SELFPAY ==
[2024-02-14 12:10] LABS: Blood Urea Nitrogen 20 mg/dl (9-20); Calcium 10.3 mg/dl (8.4-10.2); Carbon Dioxide 26 mmol/L (22-30); Chloride 104 mmol/L (98-107); Glucose 121 mg/dl (70-99); Potassium 4.4 mmol/L (3.5-5.1); Sodium 139 mmol/L (135-145); eGFR > 60.00
== END ==
LOC: REG 10:39
PROVIDERS: ATTENDING PHYSICIAN Nurse Practitioner Adult Health; FAMILY PHYSICIAN Family Medicine
DX: I35.0 Nonrheumatic aortic (valve) stenosis (principal)
CPT/HCPCS: 36415; 80048

== ENCOUNTER → 2024-02-21 09:29 | Outpatient (REF) | payer MEDICARE, BC, SELFPAY | LOC: RAD 09:29 | PROVIDERS: ATTENDING PHYSICIAN Nurse Practitioner Adult Health | DX: I35.0 Nonrheumatic aortic (valve) stenosis (principal) | CPT/HCPCS: 74174; 75572; Q9967 ==

== ENCOUNTER → 2024-04-16 09:48 | Outpatient (REF) | payer MEDICARE, BC, SELFPAY ==
[2024-04-16 12:01] LABS: Blood Urea Nitrogen 20 mg/dl (9-20); Carbon Dioxide 27 mmol/L (22-30); Chloride 102 mmol/L (98-107); Glucose 128 mg/dl (70-99); Potassium 3.8 mmol/L (3.5-5.1); Sodium 144 mmol/L (135-145); eGFR > 60.00
== END ==
LOC: REG 09:48
PROVIDERS: ATTENDING PHYSICIAN Internal Medicine Cardiovascular Disease; FAMILY PHYSICIAN Family Medicine
DX: I10 Essential (primary) hypertension (principal)
CPT/HCPCS: 36415; 80048

== ENCOUNTER 2024-04-18 06:08 | Inpatient (IN) | payer MEDICARE, BC, SELFPAY ==
[2024-04-18] VITALS (25 sets, daily range): BP systolic 89–156; BP diastolic 42–92; BMI 29.1; BMI 28.4
[2024-04-18] MEDS: NORMOSOL-R/PLASMALYTE-A 1000 IV (07:05)
[2024-04-18 07:35] LABS: APTT 36.1 Sec (23.4-35.0); INR 1.24; PT 15.4 Sec (11.4-14.6)
--- NOTE | 2024-04-18 09:32 | W.PN.ADMIT ---
Progress Note - Admit
Progress Note - Admit
pt underwent uncomplicated right hand assist lap nx
admit for post op management
[2024-04-18] MEDS: NEO-SYNEPHRINE 16 IV (10:18)
[2024-04-18] MEDS: DILAUDID 0.25 MG IV ×2 (10:30→11:19)
[2024-04-18 11:04] LABS: Hematocrit 32.9 % (39.0-52.0); Hemoglobin 11.6 g/dL (13.0-18.0); Mean Corp Hgb Conc. 35.3 g/dL (33.0-37.0); Mean Corpuscular Hgb 33.1 pg (27.0-31.0); Mean Platelet Volume 10.2 fL (7.4-10.4); Platelet Count 224 10^3/uL (130-400); Red Cell Dist. Width 11.9 % (11.5-14.5)
[2024-04-18 11:21] LABS: Blood Urea Nitrogen 22 mg/dl (9-20); Calcium 9.2 mg/dl (8.4-10.2); Carbon Dioxide 20 mmol/L (22-30); Chloride 102 mmol/L (98-107); Estimated Creatinine Clearance 51 ml/min; Glucose 115 mg/dl (70-99); Potassium 3.6 mmol/L (3.5-5.1); Sodium 139 mmol/L (135-145); eGFR > 60.00
[2024-04-18] MEDS: NSS 1000 IV (11:27)
--- NOTE | 2024-04-18 12:10 | W.PN.UPDATE ---
Update Note
Progress Note Update
pt sen and examined at bedside
have period post op of hypotension-requiring pressor support
UO marginal
labs all ok
now off pressors- SBP by bernardo >120
(pt reports recently his bp has been low- 110's at home and he has often been low after surgery)
he is awake- no pain- says he feels good
spoke with med team- plan for ICU and continued bernardo monitoring for 24hrs with recehck of hgb later today-although no clinical evid of bleeding
will monitor closely and avoid fluid overload
[2024-04-18] MEDS: NSS 250 IV (12:30)
--- NOTE | 2024-04-18 13:03 | CON.INTV ---
Consultation
Consultation Request
Date/Time Consultation Requested: 04/18/2024 - 1243
Date/Time Consultation Performed: 04/18/2024 - 1301
Requesting Provider: Dr. Junior
Performing Provider: Dr. Staples
Reason for Consultation: Post-operative hypotension now on vasopressors
Medical History
-
Chief Complaint: Elective right nephrectomy
History of Present Illness:
88-year-old male with a past medical history of moderate�severe aortic stenosis, hiatal hernia, GERD, history of postoperative A-fib s/p CABG, CAD s/p CABG (02/2018), chronic HFpEF, history of psoriasis, hypertension and hyperlipidemia who presents
for elective right-sided nephrectomy. Patient underwent outpatient CT TAVR as part of evaluation for aortic valve replacement. This was done on 02/21/2024 which coincidently found a 6 cm heterogeneous mass in the midportion + lower pole of the
right kidney which was highly suspicious for renal cell carcinoma. Of note, he did meet with cardiothoracic surgery on 02/28/2024 and patient is to first obtain right sided nephrectomy prior to undergoing aortic valve intervention. He is also going
to be meeting with cardiology for amyloid workup. Today he underwent hand-assisted right sided laparoscopic nephrectomy. There were no complications and he was transferred to the ICU postoperatively. [employer] service is now consulted for
additional management/recommendations.
When I saw the patient, he was in bed, in no acute distress on room air saturating 92%, with BP via A-line 127/45 (BP via NIBP: 132/59), and heart rate 62. He has no complaints, denying chest pain, SOB, BOLES, abdominal pain, nausea, fevers or chills.
PMHx: Aortic stenosis (moderate-severe), left eye blindness, hiatal hernia, hypertension, psoriasis, hyperlipidemia, GERD, CAD s/p CABG x4 (02/2018), lower extremity neuropathy, history of dysphagia, history of postoperative A-fib (s/p CABG), chronic
HFpEF
PSHx: Right hip replacement, bilateral carpal tunnel surgery, lumbar/sacral interlaminal epidural steroid injections, CABG x 4 (February 2018), TURP
Past Medical History
Past Medical History: Other (Above as per HPI)
Past Surgical History: Other (Above as per HPI)
Social History
Tobacco: Former Smoker (Quit smoking >10 years ago)
Alcohol: Occasional (Social use)
Drug: None
Employment: Retired
Family History
Family History: CAD (Father)
Allergies / Home Medications
Allergies
Allergy/AdvReac Type Severity Reaction Status Date / Time
apple Allergy Swelling Verified 04/18/24 07:03
Home Medications
�Medication �Instructions �Recorded �Confirmed �Last Taken �Type
atorvastatin 40 mg tablet 40 mg PO HS ##30 03/09/18 04/18/24 04/17/24 23:00 Rx
tamsulosin 0.4 mg capsule 0.4 mg PO HS ##30 03/09/18 04/18/24 04/16/24 Rx
acetaminophen 500 mg tablet 1,000 mg PO Q6HPRN PRN MILD PAIN 03/17/18 04/12/24 02/03/24 History
(Tylenol Extra Strength)
aspirin 81 mg tablet,delayed 81 mg PO DAILY Blood Clot 05/22/18 04/18/24 04/11/24 History
release Prevention/Tx
olmesartan 20 mg tablet 20 mg PO BID Blood Pressure 05/22/18 04/18/24 04/17/24 22:30 History
bethanechol chloride 25 mg tablet 25 mg PO DAILY bladder 09/24/20 04/18/24 04/17/24 12:00 History
metoprolol succinate 25 mg 25 mg PO DAILY@1200 Blood Pressure 09/24/20 04/18/24 04/17/24 19:00 History
tablet,extended release 24 hr
omeprazole 20 mg capsule,delayed 20 mg PO DAILY GERD 02/03/24 04/18/24 04/16/24 History
release
furosemide 40 mg tablet 40 mg PO DAILY Fluid 02/08/24 04/18/24 04/17/24 08:00 Rx
retention/Swelling #30 tabs
magnesium citrate 150 ml PO ONCE 04/12/24 04/18/24 04/17/24 12:15 History
Review of Systems
-
History Source: Patient
All other systems: Negative unless noted
Vitals / Labs / Diagnostic Testing
Vital Signs
Temp Pulse Resp BP Pulse Ox
97.7 F 62 18 115/51 95
04/18/24 13:00 04/18/24 12:45 04/18/24 12:45 04/18/24 12:45 04/18/24 12:45
Lab Data
04/18/24 10:57
Laboratory Results
04/18/24
07:02
PT 15.4 H
INR 1.24
APTT 36.1 H
Diagnostic Testing:
Physical Exam
-
HEENT: Normocephalic and Anicteric
Cardiovascular: S1/S2, Murmur (Storey best at RUSB) and Peripheral Edema (negative)
Respiratory: Wheeze (negative), Rales (negative), Rhonchi (negative) and Non-Labored Respirations
GI: Soft, Non Distended, Non Tender and Normal Bowel Sounds
Neurology: AO x 3 and Tremors (negative)
Skin: Warm and Dry
General: Respiratory Distress (negative), Comfortable, Chills (negative) and Sweats (negative)
Assessment
-
Assessment: 88-year-old male with a past medical history of moderate�severe aortic stenosis, hiatal hernia, GERD, history of postoperative A-fib s/p CABG, CAD s/p CABG (02/2018), chronic HFpEF, history of psoriasis, hypertension and hyperlipidemia
who presents for elective right-sided nephrectomy. Patient underwent outpatient CT TAVR as part of evaluation for aortic valve replacement. This was done on 02/21/2024 which coincidently found a 6 cm heterogeneous mass in the midportion + lower
pole of the right kidney which was highly suspicious for renal cell carcinoma. Of note, he did meet with cardiothoracic surgery on 02/28/2024 and patient is to first obtain right sided nephrectomy prior to undergoing aortic valve intervention. He is
also going to be meeting with cardiology for amyloid workup. On 04/18/2024, he underwent a hand-assisted right-sided laparoscopic radical nephrectomy. There were no complications and he was transferred to the ICU postoperatively. [employer]
service is now consulted for additional management/recommendations.
Chronic conditions PERINATOLOGY PHYSICIAN: Aortic stenosis (moderate-severe), left eye blindness, hiatal hernia, hypertension, psoriasis, hyperlipidemia, GERD, CAD s/p CABG x4 (02/2018), lower extremity neuropathy, history of dysphagia, history of postoperative A-fib
(s/p CABG), chronic HFpEF
Impression:
#Postoperative hypotension now on vasopressors
#Shock likely due to sedation
#Right hand-assisted laparoscopic radical nephrectomy (POD#0)
#Anemia (Hbb baseline 13-14.5g/dL)
#Chronic HFpEF
#Moderate-severe awaiting TAVR
#GERD
#Hx of hiatal hernia
#CAD s/p CABG x4 (02/2018)
#Hx of dysphagia
#Former tobacco smoker (quit smoking >10 years ago)
Plan:
- Postoperative management as per urology
- Limit sedation as tolerated while treating pain and maintaining MAP >65
- Wean off of vasopressors as tolerated to maintain MAP goal as above
- Restart home anti-HTN meds once off pressors >6-12 hours
- Currently on clear liquid diet - ADAT as per surgery
- Monitor Hb and transfuse if needed to keep Hb>7, plt>50k (given post-operative status)
- Maintain SpO2 >90-94%
- Maintain MAP>65
- Replete electrolytes with K>4, Mg>2
- Maintain euglycemia with goal BG 140-180
- prn nebulized bronchodilators - not currently bronchospastic
- Incentive spirometer encouraged 10x per hour for at least 4 hrs a day
- DVT ppx: SCDs for now given his post-operative status; if Hb remains stable tomorrow with no evidence of bleeding and no concern for a RP-bleed, then would start HSQ
- Outpatient follow up with cardiology and CT-surgery regarding aortic valve replacement (likely will get TAVR)
Critical care statement: A total of 37 minutes of critical care time was provided for this patient today. This includes management of unstable vital signs, evaluation of the patient at bedside, reviewing the patient's pertinent medical records
including radiographs, microbiology, laboratory evaluations, and discussion with primary team, consultants, pharmacy, nutrition, physical therapy, case management, charge nurse, critical care nursing, and respiratory therapy.
Data:
CT TAVR 02/21/2024:
1). There is a 6 cm heterogeneous mass in the midportion and lower pole of the right kidney laterally which is high-level suspicion for renal carcinoma
2). Nonurgent findings include:
-Median sternotomy with wire sternal sutures and mediastinal clips
-Atherosclerosis
-Mild cardiomegaly
-Minimal acute versus chronic linear interstitial airspace is in the lingula.
-Diverticuli are present in the colon with no CT evidence of diverticulitis
-Benign 13 mm calcification in the liver
-Multilevel degenerative disc disease
--- NOTE | 2024-04-18 13:05 | HPS.HSE ---
Family Physician
-
Family Physician: Melvin Khan
Chief Complaint
-
post-op hypotension
History of Present Illness
88 y/o M hx of CAD s/p CABG 2018, moderate to severe , mild to moderate MR and TR, hypertension, and HFpEF seen in PACU. He presented today for elective R nephrectomy for Right renal mass. Post-op in PACU, patient was noted to be hypotensive
requiring pressors and A-line BP monitoring. Later his BPs improved and pressors were discontinued. Patient was seen and denied any symptoms.
Medicine service contacted for admission to ICU for closer monitoring.
Medical History
Past Medical History
Past Medical History: Reports Other (hx of CAD s/p CABG 2018, moderate to severe , mild to moderate MR and TR, hypertension, and HFpEF)
Past Surgical History: Reports Cardiac (CABG, )
Social History
Tobacco: Former Smoker (Quit smoking 50 years ago. < 10 pack years total)
Alcohol: Occasional
Living: With Family
Family History
Family History: Not pertinent
Allergies / Home Medications
Allergies reflects when Allergies were last updated in [employer].
Home Medications with original date entered in [employer]
Allergy/Medication List:
Allergies
Allergy/AdvReac Type Severity Reaction Status Date / Time
apple Allergy Swelling Verified 04/18/24 07:03
Home Medications
atorvastatin 40 mg tablet 40 mg PO HS ##30 03/09/18
tamsulosin 0.4 mg capsule 0.4 mg PO HS ##30 03/09/18
acetaminophen 500 mg tablet (Tylenol Extra Strength) 1,000 mg PO Q6HPRN PRN MILD PAIN 03/17/18
aspirin 81 mg tablet,delayed release 81 mg PO DAILY Blood Clot Prevention/Tx 05/22/18
olmesartan 20 mg tablet 20 mg PO BID Blood Pressure 05/22/18
bethanechol chloride 25 mg tablet 25 mg PO DAILY bladder 09/24/20
metoprolol succinate 25 mg tablet,extended release 24 hr 25 mg PO DAILY@1200 Blood Pressure 09/24/20
omeprazole 20 mg capsule,delayed release 20 mg PO DAILY GERD 02/03/24
furosemide 40 mg tablet 40 mg PO DAILY Fluid retention/Swelling #30 tabs 02/08/24
magnesium citrate 150 ml PO ONCE 04/12/24
Review of Systems
-
A 12 point ROS was completed and negative except as noted: Yes
Physical Exam
Vital Signs
Vital Signs
Temp Pulse Resp BP Pulse Ox
97.4 F 62 18 115/51 95
04/18/24 11:00 04/18/24 12:45 04/18/24 12:45 04/18/24 12:45 04/18/24 12:45
Physical Exam
General: No Apparent Distress
HEENT: NormoCephalic and Anicteric
Respiratory: Clear; No Wheezes or Rales
Cardiac: S1/S2 and Regular Rhythm
GI: Soft and Non Tender
Neuro: AO x 3
Psych: Calm
Laboratory Results
-
04/18/24 10:57
Laboratory Results
PT 15.4 Sec (11.4-14.6) H 04/18/24 07:02
INR 1.24 04/18/24 07:02
APTT 36.1 Sec (23.4-35.0) H 04/18/24 07:02
Data Reviewed
-
Critical Care Time (in minutes): 55
Lab Data: Labs Reviewed by me
Impression/Plan
-
Assessment:
Post-operative hypotension
- briefly required pressors in PACU
- continue closer BP monitoring with A-line in ICU; ICU and Cards consulted
- continue gentle IVF and monitor for fluid overload
- follow tele
- follow afternoon hb
Hx of severe arctic valve stenosis
- ongoing outpatient TAVR evaluations
Chronic HFpEF
- monitor for fluid overload
- resume Lasix when BP stable; hopefully in 24 hours
CAD hx of CABG
- continue Statin/BB
- resume ASA when ok with Urology
Essential HTN
- continue BB
- holding ARB/Lasix
Benign prostate hypertrophy
History of TURP
- continue Flomax/Bethanechol
- monitor bladder scan
History of CVA
GERD/Hiatal Hernia - continue PPI
Osteoarthritis/scoliosis/spinal stenosis
Ex-smoker
DVT prophylaxis: SC heparin
Code: Full
Total Critical Care Time 55 minutes. I was immediately available to the patient and staff. I personally examined, reviewed labs, diagnostic images/reports, interpretations, treatment plans, discussed patient care with other providers and family
or caregivers (if patient is unable to make decisions), entered orders as appropriate and documented the medical record.
--- NOTE | 2024-04-18 13:06 | CON.CAR ---
Addendum entered and electronically signed by Ken Mireles MD 04/18/24 16:37:
Patient seen and examined in collaboration with INDUSTRIAL AUTOMATION ENGINEER; agree with below.
-88-year-old male with coronary artery disease status-post CABG (2018), moderate to severe aortic stenosis, and chronic HFpEF; underwent right nephrectomy today and subsequently developed post-procedural hypotension.
-The patient received a bolus of 500 cc normal saline and feels well; blood pressure is now currently stable.
-Transient hypotension was most likely related to periprocedural anesthesia.
-Blood pressure is currently stable; recommend discontinuing IV fluids at this time as the patient now has mild crackles on examination--additionally, the patient is now making some urine.
-monitor worker.
-Supportive care; encourage PO intake.
-Will follow.
Original Note:
Consultation
Consultation Request
Date/Time Consultation Requested: 04/18/24 1240
Date/Time Consultation Performed: 04/18/24 1300
Requesting Provider: Dr. Junior
Performing Provider: Jasmin SHER for Dr. Mireles
Reason for Consultation: hypotension (post-op), aortic stenosis
Medical History
-
Chief Complaint: Post-op hypotension
History of Present Illness:
88 y/o male with CAD s/p CABG 2018, moderate to severe , mild to moderate MR and TR, hypertension, and HFpEF who is s/p right nephrectomy for renal mass. Post-op, hypotension was noted briefly requiring pressors. This has resolved, but he will be
closely monitoring in the ICU. He denies any CP or SOB and looks quite well at the time of my assessment.
Past Medical History
Past Medical History: CAD, CHF, HTN and Valvular Disease
Social History
Tobacco: Non-Smoker
Family History
Family History: Reviewed & Not Pertinent
Allergies / Home Medications
Allergy/AdvReac Type Severity Reaction Status Date / Time
apple Allergy Swelling Verified 04/18/24 07:03
�Medication �Instructions �Recorded �Confirmed �Type
atorvastatin 40 mg tablet 40 mg PO HS ##30 03/09/18 04/18/24 Rx
tamsulosin 0.4 mg capsule 0.4 mg PO HS ##30 03/09/18 04/18/24 Rx
acetaminophen 500 mg tablet 1,000 mg PO Q6HPRN PRN MILD PAIN 03/17/18 04/12/24 History
(Tylenol Extra Strength)
aspirin 81 mg tablet,delayed 81 mg PO DAILY Blood Clot 05/22/18 04/18/24 History
release Prevention/Tx
olmesartan 20 mg tablet 20 mg PO BID Blood Pressure 05/22/18 04/18/24 History
bethanechol chloride 25 mg tablet 25 mg PO DAILY bladder 09/24/20 04/18/24 History
metoprolol succinate 25 mg 25 mg PO DAILY@1200 Blood Pressure 09/24/20 04/18/24 History
tablet,extended release 24 hr
omeprazole 20 mg capsule,delayed 20 mg PO DAILY GERD 02/03/24 04/18/24 History
release
furosemide 40 mg tablet 40 mg PO DAILY Fluid 02/08/24 04/18/24 Rx
retention/Swelling #30 tabs
magnesium citrate 150 ml PO ONCE 04/12/24 04/18/24 History
Review of Systems
-
History Source: Patient
All other systems: Negative unless noted (patient feeling fine- no CP, SOB, or dizziness)
Physical Exam
Vital Signs
Temp Pulse Resp BP Pulse Ox
97.4 F 62 18 115/51 95
04/18/24 11:00 04/18/24 12:45 04/18/24 12:45 04/18/24 12:45 04/18/24 12:45
Lab Results
04/18/24 10:57
Physical Exam
General: Well Developed, Well Nourished and No Apparent Distress
HEENT: Normocephalic and Anicteric
Respiratory: Clear and Non Labored Respirations
Cardiac: Regular Rhythm
Skin: Warm, Dry and Other (abdominal dressings CDI)
Neuro: AO x 3
Psych: Calm
Impression / Plan
-
Hypotension, post-op:
-briefly required pressors, but now resolved. A-line present and now SBP's 140's.
-repeat hgb is pending
-monitor BP's
-obtain EKG, follow tele
Aortic stenosis:
-has been evaluated for TAVR, but no plans yet
-follow-up as OP with Dr. Anglin (primary electronics parts sales representative)
HFpEF: chronic
-does not appear volume overloaded to assessment
-due to recent weight gain, lasix was increase to 80 mg and 40 mg alternating EOD- this is current OP dose
CAD with hx CABG:
-recent cath with no new stenting
-stable without CP
-on ASA, statin, BB- continue
Data:
Echo 11/16/23: EF 55-60%. Stage III diastolic dysfunction. Severely dilated left atrium. Mild to moderate mitral regurgitation. Moderate to severe aortic stenosis peak/mean gradients are 38/22 mmHg, calculated JANUARY is 0.9 cm. Mild to moderate aortic
regurgitation. Mild to moderate tricuspid regurgitation. Estimated pulmonary artery pressure of 40-45 mmHg. Mildly dilated aortic root (SOV 4.1 cm).
Data Reviewed
-
EKG: Tracing Personally Visualized and interpreted (EKG February 04, 2024: SR with 1st degree AVB 54 BPM, nonspecific ST/T abnormality. Repeat post-op.)
Radiology: Report Reviewed by me (CXR 02/03/24: Trace bilateral pleural effusions.)
Medical Tests (Nuc Med, Echo etc): Report Reviewed by me (Echo as noted)
Labs: Labs Reviewed by me
--- NOTE | 2024-04-18 13:15 | PTCARENOTE ---
Rec'd pt from PACU. Pt rec'd A&Ox3. Mildly drowsy but conversive and pleasant. C/O 10/01 abdominal tenderness at present...will continue to monitor. Pt able to DOLL's but pt states that right leg is weaker than left leg and he uses a single point
cane at home. S1 S2 reg w/ + murmur...NSR w/ occasional monomorphic PVC's noted on monitor. +1 RLL edema...+2 LLL edema. Thigh hi teds and SCD's on. On R/A...sats 95%. Lungs diminished. Abdomen distended...hypo BS. Forman draining yellow
urine...will monitor closely. Skin pale in color...sacrum intact. (3) mid abdominal dressings noted...all dry and intact. Right lower transverse abdominal incision w/ dry and intact dressing. 18P RW capped. 18P LW w/ IVF's infusing. Left
radial bernardo...flushed and zeroed...correlates w/ manual cuff. VS documented. Clear liquid diet...takes po meds w/o issue. Call mart within reach. Will continue to monitor closely.
[2024-04-18] MEDS: TOPROL XL 25 MG PO (13:41)
[2024-04-18] MEDS: ULTRAM 25 MG PO (14:09)
[2024-04-18] MEDS: ANCEF 5 IV ×2 (15:24→22:45)
--- NOTE | 2024-04-18 15:30 | PTCARENOTE ---
Spoke w/ cardiology. IVF's capped due to fine bibasilar crackles. IS added...pt able to cough and deep breath and perform IS up to 1250mls. No other major changes in physical assessment. Call mart within reach. Will continue to monitor.
[2024-04-18] MEDS: DILAUDID 0.5 MG IV ×2 (15:35→20:58)
[2024-04-18 15:40] LABS: Hemoglobin 11.3 g/dL (13.0-18.0)
--- NOTE | 2024-04-18 15:45 | PTCARENOTE ---
Pt placed on 2L N/C after administration of dilaudid IV. Although pt is easily arousable...pt desats to 80% on R/A after IV dilaudid. Will monitor.
--- NOTE | 2024-04-18 19:36 | PTCARENOTE ---
On assessment pt AAOx3, denies pain and SOB, RA 96%, crackles in the bases, clear liquid diet, ABD round, slightly distended, surgical dressing C/D/I, jarrell in place, L zaheer Isabel, call mart in reach.
[2024-04-18] MEDS: LIPITOR 40 MG PO (21:01)
[2024-04-18] MEDS: COLACE 100 MG PO (21:01)
[2024-04-18] MEDS: FLOMAX 0.4 MG PO (21:01)
[2024-04-18] MEDS: BENICAR PO (22:45)
[2024-04-19] VITALS (17 sets, daily range): BP systolic 92–129; BP diastolic 43–60; BMI 29.6
--- NOTE | 2024-04-19 | PTCARENOTE ---
No changes from prior assessment, denies pain, ABD surgical dressing remains C/D/I, call mart in reach
[2024-04-19] MEDS: ULTRAM 25 MG PO ×3 (03:56→16:22)
--- NOTE | 2024-04-19 04:00 | PTCARENOTE ---
no changes from prior assessment, pt repositioned q2h, PRN meds given see MAR, call mart in reach
[2024-04-19 04:01] LABS: Hematocrit 31.1 % (39.0-52.0); Mean Corp Hgb Conc. 35.4 g/dL (33.0-37.0); Mean Corpuscular Hgb 34.2 pg (27.0-31.0); Mean Corpuscular Volume 96.6 fL (80.0-94.0); Mean Platelet Volume 10.7 fL (7.4-10.4); Platelet Count 205 10^3/uL (130-400); Red Blood Cell Count 3.22 10^6/uL (4.70-6.10); Red Cell Dist. Width 11.9 % (11.5-14.5); White Blood Cell Count 10.4 10^3/uL (4.8-10.8)
[2024-04-19 04:33] LABS: Blood Urea Nitrogen 26 mg/dl (9-20); Calcium 8.8 mg/dl (8.4-10.2); Carbon Dioxide 25 mmol/L (22-30); Chloride 101 mmol/L (98-107); Estimated Creatinine Clearance 44 ml/min; Glucose 129 mg/dl (70-99); Magnesium 2.5 mg/dl (1.6-2.3); Phosphorus 3.9 mg/dl (2.5-4.5); Potassium 4.3 mmol/L (3.5-5.1); Sodium 137 mmol/L (135-145); eGFR > 60.00
[2024-04-19] MEDS: ANCEF 5 IV ×3 (05:46→22:27)
--- NOTE | 2024-04-19 08:10 | W.PN.INTV ---
Today's Communication / Plan
Recommendations
Up OOB as tolerated
Per urology, safe to start aspirin tomorrow but no other antiplatelets/anticoagulants at this time, not even chemical DVT prophylaxis
Goal SpO2 >90-94%
Maintain MAP >65
Resume home antihypertensives with holding parameters
PT/OT
Patient stable for transfer out of ICU to telemetry. Proof Technician Helper/Pulmonary service will now sign off. Please reconsult if there are any additional questions/concerns, or if patient's respiratory status deteriorates.
Assessment
-
Assessment: 88-year-old male with a past medical history of moderate�severe aortic stenosis, hiatal hernia, GERD, history of postoperative A-fib s/p CABG, CAD s/p CABG (02/2018), chronic HFpEF, history of psoriasis, hypertension and hyperlipidemia
who presents for elective right-sided nephrectomy. Patient underwent outpatient CT TAVR as part of evaluation for aortic valve replacement. This was done on 02/21/2024 which coincidently found a 6 cm heterogeneous mass in the midportion + lower
pole of the right kidney which was highly suspicious for renal cell carcinoma. Of note, he did meet with cardiothoracic surgery on 02/28/2024 and patient is to first obtain right sided nephrectomy prior to undergoing aortic valve intervention. He is
also going to be meeting with cardiology for amyloid workup. On 04/18/2024, he underwent a hand-assisted right-sided laparoscopic radical nephrectomy. There were no complications and he was transferred to the ICU postoperatively. Proof Technician Helper
service is now consulted for additional management/recommendations.
Chronic conditions MINE ANALYST: Aortic stenosis (moderate-severe), left eye blindness, hiatal hernia, hypertension, psoriasis, hyperlipidemia, GERD, CAD s/p CABG x4 (02/2018), lower extremity neuropathy, history of dysphagia, history of postoperative A-fib
(s/p CABG), chronic HFpEF
Impression:
#Postoperative hypotension now on vasopressors - resolved
#Shock likely due to sedation - shock state resolved
#Right hand-assisted laparoscopic radical nephrectomy (POD#1)
#Anemia (Hbb baseline 13-14.5g/dL)
#Chronic HFpEF
#Moderate-severe awaiting TAVR
#GERD
#Hx of hiatal hernia
#CAD s/p CABG x4 (02/2018)
#Hx of dysphagia
#Former tobacco smoker (quit smoking >10 years ago)
Plan:
- Postoperative management as per urology
- Maintain MAP >65
- Pt off vasopressors since yesterday (04/18/2024)
- Restart home anti-HTN meds once off pressors >6-12 hours
- Continue to hold lasix, and consider resuming that tomorrow if BP and sCr are stable
- Currently on clear liquid diet - ADAT as per surgery
- Monitor Hb and transfuse if needed to keep Hb>7, plt>50k (given post-operative status)
- Maintain SpO2 >90-94%
- Maintain MAP>65
- Replete electrolytes with K>4, Mg>2
- Maintain euglycemia with goal BG 140-180
- prn nebulized bronchodilators - not currently bronchospastic
- Incentive spirometer encouraged 10x per hour for at least 4 hrs a day
- DVT ppx: SCDs for now given his post-operative status; defer starting chemical ppx to Urology
- Outpatient follow up with cardiology and CT-surgery regarding aortic valve replacement (likely will get TAVR)
Patient stable for transfer out of ICU to telemetry. Proof Technician Helper/Pulmonary service will now sign off. Thank you for allowing us to be involved in the care of this patient. Please reconsult if there are any additional questions/concerns, or if
patient's respiratory status deteriorates.
Data:
CT TAVR 02/21/2024:
1). There is a 6 cm heterogeneous mass in the midportion and lower pole of the right kidney laterally which is high-level suspicion for renal carcinoma
2). Nonurgent findings include:
-Median sternotomy with wire sternal sutures and mediastinal clips
-Atherosclerosis
-Mild cardiomegaly
-Minimal acute versus chronic linear interstitial airspace is in the lingula.
-Diverticuli are present in the colon with no CT evidence of diverticulitis
-Benign 13 mm calcification in the liver
-Multilevel degenerative disc disease
Total time spent today was 55 minutes for this encounter. Time includes reviewing laboratory test/imaging results, reviewing pertinent medical records, obtaining and reviewing medical history, performing an appropriate exam, ordering medications,
tests and procedures. Time also includes documentation of this encounter, coordinating patient care and communicating with other healthcare professionals. Total time does not include separately billed tests performed on this date of service.
Subjective Dataa
Subjective Data
Date of Service:
Date of Service: April 19, 2024
Chief Complaint: Proof Technician Helper Follow Up
Subjective:
Patient seen and evaluated this morning. Currently on clear liquid diet; no acute events reported from overnight. He feels well, denying chest pain, SOB, BOLES, fevers or chills. Currently heart rate 63, saturating 91% on room air and BP 126/50.
Review of Systems
General: Other (Negative unless mentioned above)
Objective Data
Data Reviewed
Vital Signs / I&O / Oxygen:
Vital Signs
Temp Pulse Resp BP Pulse Ox
98.5 F 59 18 100/56 99
04/19/24 07:47 04/19/24 07:45 04/19/24 07:45 04/19/24 06:00 04/19/24 07:45
Intake and Output
04/18/24 04/19/24 04/20/24
06:59 06:59 06:59
Intake Total 1447 / 1447
Output Total 889 / 889 50 / 50
Balance 558 / 558 -50 / -50
SaO2 99
Nasal Cannula flow liters per 2
minute
Physical Exam
General: Respiratory Distress (negative), Comfortable, Fever (negative), Chills (negative) and Sweats (negative)
HEENT: Normocephalic, Anicteric and Moist Mucous Membranes
Cardiovascular: S1-S2, Murmur (CHRISTIN, RUSB), Peripheral Edema (negative) and Other (Normal heart rate with occasional bradycardia)
Respiratory: Wheeze (negative), Crackles (negative), Rhonchi (negative) and Non-Labored Respirations
GI: Soft, Non Distended, Non Tender and Normal Bowel Sounds
Neurology: AO x 3 and Tremors (negative)
Skin: Warm, Dry, Cyanosis (negative) and Jaundice (negative)
Labs/Micro/Reports
Lab Data
04/19/24 03:47
04/19/24 03:47
--- NOTE | 2024-04-19 08:17 | W.PN.URO.CBU ---
Today's Communication / Plan
-
ambulate
IS
track BP and labs
Assessment / Plan
-
s/p right nephrectomy
transient post op hypotension
pt appears stable after ICU observation overnight
cuff BP reading lower than bernardo- but stable
good UO/cr and hgb stable
from gu standpoint- UOOB/incentive spir
continue clears until flatus- continue low rate IVF today
continue jarrell today- remove tomorrow
ok for discharge out of ICU today
await med team and cardiology input on BP input- meds and lasix- etc
Diagnosis
-
Date of Service: April 19, 2024
-
Patient Diagnosis:
renal cell carcinoma
Post Op Day:
right hand assist lap nx 04/19
Subjective
-
pt doing well
expected soreness
bp by bernardo in the 120's- by cuff in the 100's
UO adequate- cr and hgb stable
Objective
-
Vital Signs
Temp Pulse Resp BP Pulse Ox
98.5 F 59 18 100/56 99
04/19/24 07:47 04/19/24 07:45 04/19/24 07:45 04/19/24 06:00 04/19/24 07:45
Intake and Output
04/18/24 04/19/24 04/20/24
06:59 06:59 06:59
Intake Total 1447 / 1447
Output Total 889 / 889 50 / 50
Balance 558 / 558 -50 / -50
Intake:
Oral fluids 409 / 409
IV fluids (Total) 1038 / 1038
NS 675 / 675
Neosynephrine
Nss 1,000 ml @ 80 mls/hr IV . 240 / 240
[id number] JOSE Rx#:[id number]
norm 100 / 100
Output:
Urine, Jarrell 889 / 889 50 / 50
Laboratory Results
04/19/24 03:47
04/19/24 03:47
Review of Systems
-
Constitutional: No Symptoms
Respiratory: No Symptoms
Cardiac: No Symptoms
Abdomen/GI: Abdominal Pain
Physical Exam
-
General - no acute distress
Abdomen - soft, non-tender
Genitalia - mild edema- jarrell in place
Skin - warm & dry with no rash
Neuro - AOx3, no motor deficits
Extremities - no clubbing, no cyanosis, no edema
Dressing - clean, dry, intact
[2024-04-19] MEDS: COLACE 100 MG PO ×2 (08:19→20:27)
[2024-04-19] MEDS: URECHOLINE 25 MG PO (08:19)
[2024-04-19] MEDS: PROTONIX 40 MG PO (08:19)
--- NOTE | 2024-04-19 08:24 | W.PN.CD ---
Addendum entered and electronically signed by Ken Mireles MD 04/19/24 09:31:
Patient seen and examined in collaboration with ORE BRIDGE OPERATOR; agree with below.
-Gentle IV fluids today as per Urology.
-Monitor volume status closely (lungs).
-Continue current dose of metoprolol succinate.
-Continue security monitor.
-Will continue to follow.
Original Note:
Today's Communication / Plan
-
-Monitor volume status, particularly since Lasix is held and patient getting IVF per urology
-Continue to hold ARB today, follow renal function and BP's
-Continue metoprolol
-encourage IS and wean O2 as tolerated (per nursing, dipped overnight so wearing O2 for that) - sats good currently
Impression / Plan
-
Assessment/Plan: 88 y/o male with CAD s/p CABG 2017, moderate to severe , mild to moderate MR and TR, hypertension, and HFpEF who is s/p right nephrectomy for renal mass. Post-op, hypotension was noted briefly requiring pressors. He was given a
IVF as well, which were later stopped.
Hypotension, post-op:
-improved, hgb stable
-ARB still on hold
Aortic stenosis:
-has been evaluated for TAVR, but no plans yet
-follow-up as OP with Dr. Anglin (primary jewel inspector)
HFpEF: chronic
-weight is up overnight, but IVF ordered by nephrology. Creatinine mildly elevated. Will continue to hold lasix, but need to monitor volume closely.
-of note, due to recent weight gain as OP, lasix was increase to 80 mg and 40 mg alternating EOD- this is current OP dose
CAD with hx CABG:
-recent cath with no new stenting
-stable without CP
-on ASA, statin, BB- continue
HTN:
-stable
-ARB held for now
-continue metoprolol and monitor
NSVT:
-brief 5 beats yesterday
-monitor tele
-continue BB
-recent EF and cath as noted, K+ fine, mag mildly elevated
Data:
Echo 11/16/23: EF 55-60%. Stage III diastolic dysfunction. Severely dilated left atrium. Mild to moderate mitral regurgitation. Moderate to severe aortic stenosis peak/mean gradients are 38/22 mmHg, calculated JANUARY is 0.9 cm. Mild to moderate aortic
regurgitation. Mild to moderate tricuspid regurgitation. Estimated pulmonary artery pressure of 40-45 mmHg. Mildly dilated aortic root (SOV 4.1 cm).
Physical Exam
Vital Signs/Labs
Vital Signs
Temp Pulse Resp BP Pulse Ox
98.5 F 59 18 100/56 99
04/19/24 07:47 04/19/24 07:45 04/19/24 07:45 04/19/24 06:00 04/19/24 07:45
04/18/24 04/19/24 04/20/24
06:59 06:59 06:59
Actual Weight 80.2 kg 85.5 kg
04/19/24 03:47
04/19/24 03:47
PT 15.4 Sec (11.4-14.6) H 04/18/24 07:02
INR 1.24 04/18/24 07:02
APTT 36.1 Sec (23.4-35.0) H 04/18/24 07:02
Magnesium 2.5 mg/dl (1.6-2.3) H 04/19/24 03:47
Physical Exam
Constitutional: No acute distress
EENT: Anicteric
Cardiovascular: Rhythm & rate is regular (SB/SR)
Respiratory: Respiratory effort normal, Crackles Present (b/l bases, mild) and Other (on O2 by NC)
Neuro/Psych: AO x 3
Data Reviewed
-
Date of Service: April 19, 2024
EKG: Tracing Personally Visualized and interpreted (SR with ST/T abnormalities stable from previous 1st degree AVB) and Other (Tele SB. 1 5 beat run NSVT yesterday)
Labs: Labs Reviewed by me
[2024-04-19] MEDS: NSS 1000 IV (08:30)
--- NOTE | 2024-04-19 12:15 | PTCARENOTE ---
Pt AAOx3. Sinus rhythm/lester with 1st degree. SpO2 94-97% on room air. Continues to have bibasilar crackles. Denies cough or SOB. A-line d/c'd. Pt ambulated to bathroom with 1 assist. + BM. Now in chair. Forman draining clear yellow. All
other assessments unchanged.
[2024-04-19] MEDS: TOPROL XL PO (13:00)
--- NOTE | 2024-04-19 13:17 | CM ---
CM reviewed medical records. Patient lives independently with . Patient had a history of VN , but appears to not currently be on service. Patient does not have a SNF or DME history. Patient is active with his PCP. Patient had medication
coverage.
PLAN: Pending clinical course and PT evaluations.
--- NOTE | 2024-04-19 13:36 | PTCARENOTE ---
Noon Metoprolol refused d/t pt states he takes at 7pm and only takes half tab when BP is that low (109/45).
Reports taking Benicar at 0800 and 2300.
--- NOTE | 2024-04-19 14:38 | W.PN.HOSP.TC ---
Today's Communication/Plan
-
cap IVF
transfer out of ICU, ok with all consultants
Urology service will be primary on floors
Assessment / Plan
Assessment / Plan
Assessment:
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
- post-op care per Urology
- remains on IV Ancef
Post-operative hypotension
- briefly required pressors in PACU
- BP more stable this AM, therefore A-line removed
- cap IVF and observe BP
- CBC cards following
Hx of severe arctic valve stenosis
- ongoing outpatient TAVR evaluations
Chronic HFpEF
- monitor for fluid overload
- resume Lasix hopefully in 24 hours
CAD hx of CABG
- continue Statin/BB
- resume ASA when ok with Urology
Essential HTN
- continue BB
- holding ARB/Lasix
Benign prostate hypertrophy
History of TURP
- continue Flomax/Bethanechol
- monitor bladder scan
History of CVA
GERD/Hiatal Hernia - continue PPI
Osteoarthritis/scoliosis/spinal stenosis
Ex-smoker
DVT prophylaxis: SC heparin
Code: Full
Total Critical Care Time 32 minutes. I was immediately available to the patient and staff. I personally examined, reviewed labs, diagnostic images/reports, interpretations, treatment plans, discussed patient care with other providers and family or
caregivers (if patient is unable to make decisions), entered orders as appropriate and documented the medical record.
Anticipated Discharge: 24 - 48 hours
Subjective/Interval History
-
Date of Service: April 19, 2024
BP more stable today
A-line removed
BM earlier today therefore IVF stopped and diet ordered
no complaints from patient
Objective Data
-
Labs:
Laboratory Results
04/19/24
03:47
WBC 10.4
Hgb 11.0 L
Hct 31.1 L
Plt Count 205
Sodium 137
Potassium 4.3
Chloride 101
Carbon Dioxide 25
BUN 26 H
Creatinine 1.1
Glucose 129 H
Calcium 8.8
Vital Signs:
Vital Signs
Temp Pulse Resp BP Pulse Ox
97.3 F 54 13 120/43 96
04/19/24 12:01 04/19/24 14:30 04/19/24 11:17 04/19/24 14:00 04/19/24 10:15
I&O
04/18/24 04/19/24 04/20/24
06:59 06:59 06:59
Intake Total 1447 / 1447 1000 / 1000
Output Total 889 / 889 350 / 350
Balance 558 / 558 650 / 650
Physical Exam
-
General: No Apparent Distress
HEENT: Normocephalic and Atraumatic
Respiratory: Negative Wheezes
Cardiac: Regular Rhythm and S1/S2
GI: Soft and Nontender
Musculoskeletal: No Edema
Neuro: AO x 3
Hematologic / Lymphatic: No Lymphadenopathy
Psych: Calm
Data Reviewed
-
Critical Care Time (in minutes): 32
Labs: Labs Reviewed by me
[2024-04-19] MEDS: TYLENOL 1000 MG PO ×2 (14:55→23:56)
--- NOTE | 2024-04-19 16:54 | PTCARENOTE ---
pt transitioned to telemetry status , pt to transfer to room 2106 , report given to receiving RN
--- NOTE | 2024-04-19 17:30 | PTCARENOTE ---
Pt transferred to in wheelchair. Ambulated to bed with standby assistance and cane, gait steady. Telemetry applied. Full assessment completed. Abdominal DSGs C/D/I. Forman catheter clean and intact draining yellow urine. Pt instructed to ring for
assistance getting OOB, verbalized understanding. Bed locked and in the lowest position, safety maintained. Oriented to room and call mart.
[2024-04-19] MEDS: BENICAR PO (20:28)
[2024-04-19] MEDS: FLOMAX 0.4 MG PO (22:27)
[2024-04-19] MEDS: LIPITOR 40 MG PO (22:31)
[2024-04-20 02:55] VITALS: BP 103/48
[2024-04-20] MEDS: ANCEF 5 IV (06:00)
[2024-04-20 06:20] LABS: Hematocrit 30.8 % (39.0-52.0); Hemoglobin 10.8 g/dL (13.0-18.0); Mean Corp Hgb Conc. 35.1 g/dL (33.0-37.0); Mean Corpuscular Hgb 34.5 pg (27.0-31.0); Mean Corpuscular Volume 98.4 fL (80.0-94.0); Mean Platelet Volume 11.1 fL (7.4-10.4); Platelet Count 167 10^3/uL (130-400); Red Blood Cell Count 3.13 10^6/uL (4.70-6.10); Red Cell Dist. Width 12.1 % (11.5-14.5); White Blood Cell Count 8.4 10^3/uL (4.8-10.8)
[2024-04-20 06:37] LABS: Blood Urea Nitrogen 24 mg/dl (9-20); Calcium 8.6 mg/dl (8.4-10.2); Carbon Dioxide 26 mmol/L (22-30); Chloride 101 mmol/L (98-107); Estimated Creatinine Clearance 44 ml/min; Glucose 98 mg/dl (70-99); Potassium 4.1 mmol/L (3.5-5.1); Sodium 137 mmol/L (135-145); eGFR > 60.00
--- NOTE | 2024-04-20 07:33 | W.PN.URO.CBU ---
Today's Communication / Plan
-
monitor BP
TOV
Assessment / Plan
-
s/p right nephrectomy
transient post op hypotension
pt doing well
out of ICU yesterday
labs stable including cr/ tolerating diet/pain controlled
TOV today
stop ancef- start asa
continue scd's for dvt prophylax
cardiology/med team evaluating in terms of outpt BP/lasix regimen given his BP
hopeful if stable for discharge tomorrow
Diagnosis
-
Date of Service: April 20, 2024
-
Patient Diagnosis:
renal cell carcinoma
Post Op Day:
right hand assist lap nx 04/19
Subjective
-
pt feels good
had small BM yesterday- passing gas
jarrell out
labs stable
Objective
-
Vital Signs
Temp Pulse Resp BP Pulse Ox
97.8 F 57 18 103/48 95
04/20/24 02:55 04/20/24 02:55 04/20/24 02:55 04/20/24 02:55 04/20/24 02:55
Intake and Output
04/19/24 04/20/24 04/21/24
06:59 06:59 06:59
Intake Total 1447 / 1447 1960 / 1960
Output Total 889 / 889 1350 / 1350
Balance 558 / 558 610 / 610
Intake:
Oral fluids 409 / 409 1120 / 1120
Amount of oral supplement(s) 480 / 480
consumed
IV fluids (Total) 1038 / 1038 360 / 360
NS 675 / 675
Neosynephrine
Nss 1,000 ml @ 80 mls/hr IV . 240 / 240
[id number] JOSE Rx#:[id number]
Nss 1,000 ml @ 80 mls/hr IV . 360 / 360
[id number] JOSE Rx#:[id number]
norm 100 / 100
Output:
Urine, Jarrell 889 / 889 1350 / 1350
Laboratory Results
04/20/24 04:55
04/20/24 04:55
Review of Systems
-
Constitutional: No Symptoms
Respiratory: No Symptoms
Cardiac: No Symptoms
Abdomen/GI: Abdominal Pain (minimal)
Physical Exam
-
General - no acute distress
Abdomen - soft, non-tender, positive bowel sounds
Genitalia - normal
Skin - warm & dry with no rash
Neuro - AOx3, no motor deficits
Extremities - no clubbing, no cyanosis, no edema
Incision - clean, dry
[2024-04-20 08:28] VITALS: BP 144/66
[2024-04-20] MEDS: ASPIR LOW (ENTERIC COATED) 81 MG PO (09:03)
[2024-04-20] MEDS: BENICAR 20 MG PO ×2 (09:03→21:24)
[2024-04-20] MEDS: COLACE 100 MG PO ×2 (09:04→21:25)
[2024-04-20] MEDS: URECHOLINE 25 MG PO (09:04)
[2024-04-20] MEDS: PROTONIX 40 MG PO (09:04)
--- NOTE | 2024-04-20 11:03 | W.PN.HOSP.TC ---
Addendum entered and electronically signed by Toby Junior MD 04/20/24 11:37:
Dr. Mireles informed me of NSVT on monitor. We decided to resume back the BB but 1/2 the dose to metoprolol 12.5mg XL
Original Note:
Today's Communication/Plan
-
resume ASA
stop BB, continue ARB BID; resume Lasix in AM - all discussed with Dr. Mireles
DC planning per Urology
Assessment / Plan
Assessment / Plan
Assessment:
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
- post-op care per Urology
- s/p IV Ancef course
Post-operative hypotension
hx of Essential HTN
- briefly required pressors in PACU
- BP more stable now
- will DC Metoprolol at cards recommendation and continue ARB BID
- CBC cards following
Hx of severe arctic valve stenosis
- ongoing outpatient TAVR evaluations
Chronic HFpEF
- monitor for fluid overload
- resume Lasix hopefully in 24 hours
CAD hx of CABG
- continue Statin/BB/ASA
Benign prostate hypertrophy
History of TURP
- continue Flomax/Bethanechol
- monitor bladder scan
History of CVA
GERD/Hiatal Hernia - continue PPI
Osteoarthritis/scoliosis/spinal stenosis
Ex-smoker
DVT prophylaxis: SC heparin
Code: Full
Anticipated Discharge: Within 24 hours
Subjective/Interval History
-
Date of Service: April 20, 2024
reports some bloody soaking of underwear near prior gauzes sites, no active bleeding
also concerned about metoprolol timing
Objective Data
-
Labs:
Laboratory Results
04/20/24
04:55
WBC 8.4
Hgb 10.8 L
Hct 30.8 L
Plt Count 167
Sodium 137
Potassium 4.1
Chloride 101
Carbon Dioxide 26
BUN 24 H
Creatinine 1.1
Glucose 98
Calcium 8.6
Vital Signs:
Vital Signs
Temp Pulse Resp BP Pulse Ox
98.8 F 65 14 144/66 95
04/20/24 08:28 04/20/24 08:28 04/20/24 08:28 04/20/24 08:28 04/20/24 08:28
I&O
04/19/24 04/20/24 04/21/24
06:59 06:59 06:59
Intake Total 1447 / 1447 1960 / 1960
Output Total 889 / 889 1350 / 1350
Balance 558 / 558 610 / 610
Physical Exam
-
General: No Apparent Distress
HEENT: Normocephalic and Atraumatic
Respiratory: Negative Wheezes
Cardiac: Regular Rhythm and S1/S2
GI: Soft, Nontender and Other (previous [facility] site with evidence of prior bleed, no active bleeding currently)
Genito-urinary: No Costovertebral Tender
Neuro: AO x 3
Hematologic / Lymphatic: No Lymphadenopathy
Psych: Calm
Data Reviewed
-
Total Time Spent with Patient (in minutes): 45
Labs: Labs Reviewed by me
--- NOTE | 2024-04-20 11:27 | W.PN.CD ---
Today's Communication / Plan
-
-Patient can resume home dose of Lasix tomorrow.
-Continue current dose of omelsartan.
-Decrease metoprolol succinate dose to 12.5 mg once daily, as patient states that his blood pressure was low at home after taking 25 mg daily.
Impression / Plan
-
Assessment/Plan: 88 y/o male with CAD s/p CABG 2018, moderate to severe , mild to moderate MR and TR, hypertension, and HFpEF who is s/p right nephrectomy for renal mass. Post-op, hypotension was noted briefly requiring pressors. He was given a
IVF as well, which were later stopped.
Hypotension, post-op:
-Resolved; most likely transient event related to perioperative anesthesia.
Aortic stenosis:
-has been evaluated for TAVR, but no plans yet
-follow-up as OP with Dr. Anglin (primary Business Services Administrator)
HFpEF: chronic
-Currently stable.
-Patient can resume home dose of Lasix tomorrow.
CAD with hx CABG:
-recent cath with no new stenting
-stable without CP
-on ASA, statin, BB- continue
HTN:
-Continue current dose of omelsartan.
-Decrease metoprolol succinate dose to 12.5 mg once daily, as patient states that his blood pressure was low at home after taking 25 mg daily.
NSVT:
-brief 5 beats this admission; no recurrence on metoprolol succinate.
-Lowering dose as above to minimize risk of hypotension.
-recent EF and cath as noted, K+ fine, mag mildly elevated
Data:
Echo 11/16/23: EF 55-60%. Stage III diastolic dysfunction. Severely dilated left atrium. Mild to moderate mitral regurgitation. Moderate to severe aortic stenosis peak/mean gradients are 38/22 mmHg, calculated JANUARY is 0.9 cm. Mild to moderate aortic
regurgitation. Mild to moderate tricuspid regurgitation. Estimated pulmonary artery pressure of 40-45 mmHg. Mildly dilated aortic root (SOV 4.1 cm).
Physical Exam
Vital Signs/Labs
Vital Signs
Temp Pulse Resp BP Pulse Ox
98.8 F 65 14 144/66 95
04/20/24 08:28 04/20/24 08:28 04/20/24 08:28 04/20/24 08:28 04/20/24 08:28
04/19/24 04/20/24 04/21/24
06:59 06:59 06:59
Actual Weight 85.5 kg
04/20/24 04:55
04/20/24 04:55
PT 15.4 Sec (11.4-14.6) H 04/18/24 07:02
INR 1.24 04/18/24 07:02
APTT 36.1 Sec (23.4-35.0) H 04/18/24 07:02
Magnesium 2.5 mg/dl (1.6-2.3) H 04/19/24 03:47
Physical Exam
Constitutional: No acute distress and Comfortable
EENT: Anicteric and Moist mucous membranes
Cardiovascular: Rhythm & rate is regular, Pedal edema is absent, Systolic murmur absent and S1S2 is normal
Respiratory: Respiratory effort normal and Lungs clear to auscul.
GI: Soft
Neuro/Psych: AO x 3
Other: Skin (Warm, dry, intact)
Data Reviewed
-
Date of Service: April 20, 2024
EKG: Tracing Personally Visualized and interpreted (Telemetry: Sinus rhythm)
Labs: Labs Reviewed by me
[2024-04-20 12:02] VITALS: BP 131/54
[2024-04-20] MEDS: TOPROL XL 12.5 MG PO (12:20)
--- NOTE | 2024-04-20 13:37 | PTCARENOTE ---
Addendum entered by Eve Koroma RN 04/20/24 16:28:
Pt continues with decreased urine output since catheter removal this am. Cumulative output this shift 100cc, approx 25 cc at a time. PVRs <200. Pt denies discomfort. Dr Dang aware and instructed RN to hold off on PVRs unless pt exhibiting signs of
discomfort. RN instructed to check PVR tomorrow am around 0700. PO intake continued to be encouraged. Care ongoing.
Original Note:
Pt with scant urine output since jarrell removal this am. PVR 54. Pt denies discomfort. Dr Dang made aware and instructed RN to encourage PO intake. Care ongoing at this time.
--- NOTE | 2024-04-20 14:16 | CM ---
Addendum entered by Laney Chacon 04/20/24 15:46:
PT/OT recs - HH
Discussed with pt - prefers [facility]
TT sent to [facility] Liaison for HH needs
Plan - anticipate home with [facility] when medically stable
Original Note:
Case management following for discharge planning
s/p R nephrectomy
Cards following
Pending PT/OT eval
CM remains available for d/c needs
Plan - anticipate home no needs vs w/[facility] when medically stable
[2024-04-20 16:14] VITALS: BP 155/67
--- NOTE | 2024-04-20 16:38 | VNURNOTE ---
Liaison attempted to meet with patient at bedside- nurse was performing bladder scan procedure. [facility] brochure left on door.
Attempted to call patient later, no answer. Referral placed in [facility].
[2024-04-20 19:01] VITALS: BP 116/52
[2024-04-20] MEDS: LIPITOR 40 MG PO (21:25)
[2024-04-20] MEDS: FLOMAX 0.4 MG PO (21:25)
[2024-04-20] MEDS: TYLENOL 1000 MG PO (21:30)
[2024-04-20 23:00] VITALS: BP 120/56
[2024-04-21 03:00] VITALS: BP 124/52
[2024-04-21 07:05] VITALS: BP 123/64
[2024-04-21 07:38] LABS: Hematocrit 32.7 % (39.0-52.0); Hemoglobin 11.2 g/dL (13.0-18.0); Mean Corp Hgb Conc. 34.3 g/dL (33.0-37.0); Mean Corpuscular Hgb 33.5 pg (27.0-31.0); Mean Corpuscular Volume 97.9 fL (80.0-94.0); Mean Platelet Volume 11.1 fL (7.4-10.4); Platelet Count 199 10^3/uL (130-400); Red Blood Cell Count 3.34 10^6/uL (4.70-6.10); Red Cell Dist. Width 11.9 % (11.5-14.5); White Blood Cell Count 7.4 10^3/uL (4.8-10.8)
[2024-04-21 08:20] LABS: Blood Urea Nitrogen 21 mg/dl (9-20); Calcium 8.8 mg/dl (8.4-10.2); Carbon Dioxide 30 mmol/L (22-30); Chloride 101 mmol/L (98-107); Estimated Creatinine Clearance 44 ml/min; Glucose 92 mg/dl (70-99); Potassium 4.4 mmol/L (3.5-5.1); Sodium 138 mmol/L (135-145); eGFR > 60.00
--- NOTE | 2024-04-21 09:04 | W.PN.URO.CBU ---
Today's Communication / Plan
-
recheck pvr this afternoon
probable discharge
Assessment / Plan
-
s/p right nephrectomy
transient post op hypotension
pt doing well
wants to go home
med team and cardiology have cleared and given med instructions
only issue is partial retention- which is his baseline; he has no discomfort and cr is normal- plan to recheck pvr this afternoon- if stable- home- if elevated jarrell placement and discuss discharge with cath
Diagnosis
-
Date of Service: April 21, 2024
-
Patient Diagnosis:
renal cell carcinoma
Post Op Day:
right hand assist lap nx 04/19
Subjective
-
pt feels good
eating and drinking
+ flatus
minimal pain
jarrell out yesterday- just started really urinating this am- i checked bedside pvr- 250cc
Objective
-
Vital Signs
Temp Pulse Resp BP Pulse Ox
98.4 F 67 16 123/64 96
04/21/24 07:05 04/21/24 07:05 04/21/24 07:05 04/21/24 07:05 04/21/24 07:05
Intake and Output
04/20/24 04/21/24 04/22/24
06:59 06:59 06:59
Intake Total 1960 / 1960 480 / 480
Output Total 1350 / 1350
Balance 610 / 610 480 / 480
Intake:
Oral fluids 1120 / 1120 480 / 480
Amount of oral supplement(s) 480 / 480
consumed
IV fluids (Total) 360 / 360
Nss 1,000 ml @ 80 mls/hr IV . 360 / 360
[id number] JOSE Rx#:[id number]
Output:
Urine, Jarrell 1350 / 1350
Other:
Number of approximated SMALL 4
amounts of urine
Laboratory Results
04/21/24 06:25
04/21/24 06:25
Review of Systems
-
Constitutional: Fatigue
Respiratory: No Symptoms
Cardiac: No Symptoms
Abdomen/GI: No Symptoms
Physical Exam
-
General - no acute distress
Abdomen - soft, non-tender, positive bowel sounds
Genitalia - normal
Skin - warm & dry with no rash
Neuro - AOx3, no motor deficits
Extremities - no clubbing, no cyanosis, no edema
Incision - clean, dry
--- NOTE | 2024-04-21 09:48 | CM ---
Pt has been referred to [facility]. He will be called at home after discharge for start of care. [facility] aware of pt request.
[2024-04-21] MEDS: LASIX 40 MG PO (10:16)
[2024-04-21] MEDS: PROTONIX 40 MG PO (10:17)
[2024-04-21] MEDS: BENICAR 20 MG PO (10:17)
[2024-04-21] MEDS: ASPIR LOW (ENTERIC COATED) 81 MG PO (10:18)
[2024-04-21] MEDS: COLACE PO (10:18)
[2024-04-21] MEDS: URECHOLINE 25 MG PO (10:18)
[2024-04-21 11:00] VITALS: BP 139/62
--- NOTE | 2024-04-21 11:11 | W.PN.HOSP.TC ---
Today's Communication/Plan
-
discharge per Urology with or without Forman
Medicine will continue to follow until discharge
Assessment / Plan
Assessment / Plan
Assessment:
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
- post-op care per Urology
- s/p IV Ancef course
Post-operative hypotension
hx of Essential HTN
- briefly required pressors in PACU
- BP more stable now
- Metoprolol reduced to 12.5mg at cards recommendation and continue ARB BID
- CBC cards following
Hx of severe arctic valve stenosis
- ongoing outpatient TAVR evaluations
Chronic HFpEF
- monitor for fluid overload
- resume Lasix daily today
CAD hx of CABG
- continue Statin/BB/ASA
Benign prostate hypertrophy
History of TURP
- continue Flomax/Bethanechol
- monitor bladder scan
History of CVA
GERD/Hiatal Hernia - continue PPI
Osteoarthritis/scoliosis/spinal stenosis
Ex-smoker
DVT prophylaxis: SC heparin
Code: Full
Anticipated Discharge: Today
Subjective/Interval History
-
Date of Service: April 21, 2024
denies any new complaints at present
RN reports some high PVRs
Objective Data
-
Labs:
Laboratory Results
04/21/24
06:25
WBC 7.4
Hgb 11.2 L
Hct 32.7 L
Plt Count 199
Sodium 138
Potassium 4.4
Chloride 101
Carbon Dioxide 30
BUN 21 H
Creatinine 1.1
Glucose 92
Calcium 8.8
Vital Signs:
Vital Signs
Temp Pulse Resp BP Pulse Ox
98.4 F 67 16 123/64 96
04/21/24 07:05 04/21/24 07:05 04/21/24 07:05 04/21/24 07:05 04/21/24 07:05
I&O
04/20/24 04/21/24 04/22/24
06:59 06:59 06:59
Intake Total 1960 / 1960 480 / 480
Output Total 1350 / 1350 50 / 50
Balance 610 / 610 480 / 480 -50 / -50
Physical Exam
-
General: No Apparent Distress
HEENT: Normocephalic and Atraumatic
Respiratory: Negative Wheezes
Cardiac: Regular Rhythm and S1/S2
GI: Soft
Neuro: AO x 3
Hematologic / Lymphatic: No Lymphadenopathy
Psych: Calm
Data Reviewed
-
Total Time Spent with Patient (in minutes): 41
Labs: Labs Reviewed by me
[2024-04-21] MEDS: TOPROL XL 12.5 MG PO (13:41)
[2024-04-21] MEDS: COLACE 100 MG PO (13:44)
== END 2024-04-21 14:15 | disposition home health service (06) | DRG 656 ==
LOC: 2 SOUTH 06:08
PROVIDERS: Internal Medicine; ADMITTING PHYSICIAN Specialist; ATTENDING PHYSICIAN Specialist; CONSULT PHYSICIAN Internal Medicine; CONSULT PHYSICIAN Internal Medicine Critical Care Medicine; FAMILY PHYSICIAN Family Medicine
PROC: 0TT04ZZ Resection of Right Kidney, Percutaneous Endoscopic Approach (ICD-10-PCS; 2024-04-18)
DX: C64.1 Malignant neoplasm of right kidney, except renal pelvis (principal); T81.19XA Other postprocedural shock, initial encounter; I47.29 Other ventricular tachycardia; I50.32 Chronic diastolic (congestive) heart failure; I11.0 Hypertensive heart disease with heart failure; I35.0 Nonrheumatic aortic (valve) stenosis; E78.5 Hyperlipidemia, unspecified; Z96.641 Presence of right artificial hip joint; I95.81 Postprocedural hypotension; I25.10 Atherosclerotic heart disease of native coronary artery without angina pectoris; G62.9 Polyneuropathy, unspecified; H54.62 Unqualified visual loss, left eye, normal vision right eye; K21.9 Gastro-esophageal reflux disease without esophagitis; K44.9 Diaphragmatic hernia without obstruction or gangrene; M41.9 Scoliosis, unspecified; M48.00 Spinal stenosis, site unspecified; N40.0 Benign prostatic hyperplasia without lower urinary tract symptoms; M19.90 Unspecified osteoarthritis, unspecified site; D64.9 Anemia, unspecified; Z79.82 Long term (current) use of aspirin; Z79.899 Other long term (current) drug therapy; Z86.73 Personal history of transient ischemic attack (TIA), and cerebral infarction without residual deficits; Z87.891 Personal history of nicotine dependence; Z95.1 Presence of aortocoronary bypass graft; Y83.8 Other surgical procedures as the cause of abnormal reaction of the patient, or of later complication, without mention of misadventure at the time of the procedure
CPT/HCPCS: 88307; 36415; 80048; 83735; 84100; 85014; 85018; 85027; 85610; 85730; 86850; 86900; 86901; 93005; 97116; 97163; 97166

== ENCOUNTER 2024-04-22 02:48 | Emergency (ER) | payer MEDICARE, BC, SELFPAY ==
[2024-04-22 02:49] VITALS: BP 164/71
[2024-04-22 02:50] VITALS: BP 164/71
[2024-04-22 03:00] VITALS: BP 142/76
[2024-04-22 03:24] LABS: Urine Albumin Trace (Neg - Trace); Urine Bilirubin Negative (Negative); Urine Character Clear (Clear); Urine Color Yellow; Urine Glucose Negative (Negative); Urine Ketone Negative (Negative); Urine Leukocyte Negative (Negative); Urine Nitrite Negative (Negative); Urine Occult Blood 2+ (Negative); Urine Specific Gravity 1.015 (<1.030); Urine Urobilinogen Negative (Neg - 1+)
[2024-04-22 03:27] LABS: Urine Squamous Cell 16-20 /LPF (Few)
--- NOTE | 2024-04-22 03:27 | ED.GENMED ---
History of Present Illness
<ARLEY Scott - Last Filed: 04/22/24 05:59>
General
Chief Complaint: Urinary Symptoms
Source: patient
Exam Limitations: none
Time Seen by Provider: 04/22/24 02:53
Nursing documentation reviewed up to this point in time: agreed with
History of Present Illness
History of Present Illness:
Pt is an 88 y/o M who is s/p Right nephrectomy POD#4 who presents with complaints of urinary retention x9 hrs. The pt had the procedure performed on Tuesday and was discharged from this hospital this afternoon at 3pm. He reports that at around 5-6
pm he had his last urination. Since then he developed bladder fullness and pressure and urinary retention. He also has complaints of bilateral leg pain. The leg pain is described as a cramping sensation with associated tingling and is worsened with
walking. The pt reports that he has bilateral leg swelling that is related to preoperative CHF and his procedure. Denies fever, chills, headache, chest pain, SOB, nausea, vomiting, calf pain, fatigue, weakness, joint pain, back pain, dysuria,
urinary incontinence.
Past History
<ARLEY Scott - Last Filed: 04/22/24 05:59>
Past History
ED Past Medical History: Arrthythmia, CAD, HTN, Hypercholesterolemia, OR and Other (UTI, , lumbar DJD, afib on eliquis post-op, post-op urinary retention)
ED Past Surgical History: Cardiac (CABG 02/2018), Orthopedic, Urological (Right nephrectomy) and Other (Cataract)
Social History
Tobacco: Former smoker
Alcohol: None
Drug: None
Personal:
Living: with family
Employment: Retired
Family History
Family History: Other (n/c)
Review of Systems
<ARLEY Scott - Last Filed: 04/22/24 05:59>
Review of Systems
Constitutional: Reports no symptoms
EENT: Reports no symptoms
Respiratory: Reports no symptoms
Cardiac: Reports no symptoms
ABD/GI: Reports no symptoms
: Reports difficulty voiding
Musculoskeletal: Reports muscle pain (B/L lower extremities) and edema
Skin: Reports no symptoms
Neurological: Reports no symptoms
Endocrine: Reports no symptoms
Hematologic/Lymphatic: Reports no symptoms
Psychiatric: Reports no symptoms
Phy Exam
<ARLEY Scott - Last Filed: 04/22/24 05:59>
General Physical Exam
General Presentation: well appearing and no apparent distress
General age: appears stated age
General Skin: warm and dry
General Habitus: normal
General Mental: alert
General Hydration: appears well hydrated
General Chronic Disability: urinary catheter
ENT Exam
ENT Exam: EOMI and neck supple
Eye Exam
Eye Exam: PERRL, EOMI, cornea clear and conjunctiva normal
Cardiovascular Exam
Cardiovascular Exam: regular rate/rhythm and normal peripheral pulses
Pulmonary Exam
Pulmonary Exam: lungs clear and no respiratory distress
Gastrointestinal Exam
Gastrointestinal Exam: non tender, soft, non distended and no indwelling devices
Abdominal Scars: right lower quadrant (10 cm surgical incision RLQ. Incision site and radha CDI.) and vertical midline (3x portal scars. Incision sites and radha CDI.)
Neurological Exam
Neurological Exam: alert, oriented x3, CN II-XII intact, no motor deficits, normal reflexs, no sensory deficits and speech normal
Musculoskeletal Exam
Musculoskeletal Exam: full ROM, edema (B/L lower extremities) and neuro vasc intact
Skin Exam
Skin Exam: warm/dry, erythema and other (abdominal incision sites and radha CDI)
Psychiatric Exam
Psychiatric Exam: normal mood/affect
Course
<ARLEY Scott - Last Filed: 04/22/24 05:59>
Orders/Labs/Results
Orders:
Orders
04/22/24 03:15
Urinalysis Reflex To Culture Urgent
Date Specimen was Collected: 04/22/24
Time Specimen was Collected: 03:14
Urine Microscopic Reflex Cult Urgent
04/22/24 04:22
Acetaminophen [Tylenol] 650 mg PO NOW STA
Abnormal Lab Results
04/22/24
03:15
Ur Occult Blood Reflex 2+ A
(Negative)
Urine RBC 3-6 A /HPF
(0-2)
Urine Bacteria (Reflex) Few A
(Negative)
Vital Signs
Initial and Last Documented VS:
Initial Vital Signs
BP
164/71
04/22/24 02:49
Last Documented Vital Signs
Temp Pulse Resp BP Pulse Ox
98.5 F 78 18 126/60 97
04/22/24 02:50 04/22/24 02:50 04/22/24 02:50 04/22/24 04:00 04/22/24 04:21
<Ken Mendez, DO - Last Filed: 04/22/24 04:28>
Orders/Labs/Results
Orders:
Orders
04/22/24 03:15
Urinalysis Reflex To Culture Urgent
Date Specimen was Collected: 04/22/24
Time Specimen was Collected: 03:14
Urine Microscopic Reflex Cult Urgent
04/22/24 04:22
Acetaminophen [Tylenol] 650 mg PO NOW STA
Abnormal Lab Results
04/22/24
03:15
Ur Occult Blood Reflex 2+ A
(Negative)
Urine RBC 3-6 A /HPF
(0-2)
Urine Bacteria (Reflex) Few A
(Negative)
Vital Signs
Initial and Last Documented VS:
Initial Vital Signs
BP
164/71
04/22/24 02:49
Last Documented Vital Signs
Temp Pulse Resp BP Pulse Ox
98.5 F 78 18 126/60 97
04/22/24 02:50 04/22/24 02:50 04/22/24 02:50 04/22/24 04:00 04/22/24 04:21
<ARLEY Scott - Last Filed: 04/22/24 05:59>
MDM/Problems Addressed
Differential Diagnosis Includes:
Postoperative urinary retention
<ARLEY Scott - Last Filed: 04/22/24 05:59>
*Critical Care Note
Total Time (30-74mins, 75-104mins- exclusive of procedures): Not Applicable
ED Attending Note
<ARLEY Scott - Last Filed: 04/22/24 05:59>
-
Portions of this chart may have been created with voice recognition software.� Occasional wrong word or��sound alike� substitutions may have occurred due to the inherent limitations of voice recognition software.
<Ken Mendez DO - Last Filed: 04/22/24 04:28>
ED Attending Note
Patient seen and examined by attending physician: Yes
I performed the substantive portion of visit, reviewed & personally made and approve the management plan that is documented in note by myself or DELISA.: Yes
ED Attending Note:
Pleasant 88-year-old male who is 4 days status post right nephrectomy. Presents with urinary retention for the last 9 hours. Patient was advised at the time of discharge yesterday afternoon to have a Forman catheter but he refused. He states that
he had the urge to urinate shortly after arriving home. Upon arrival bladder scan showed urine in the bladder. Patient had a Forman catheter placed and felt immediate relief of symptoms. Patient was seen in conjunction with the PA student. I have
reviewed and agree with the history and treatment plan presented. On my independent physical exam, patient is awake, alert, and oriented x3, minimal acute distress. He does complain pain in his legs which she states is chronic pain. He does
request Tylenol. Forman catheter is in place and draining yellow urine. Patient moves all 4 extremities. He is awake alert and oriented x 3. Patient wishes to be discharged. He will be calling his son-in-law to pick him up. He will follow-up
with urology.
Discharge Plan
Departure
Patient Disposition: Home (Routine Discharge)
Date of Disposition: 04/22/24
Time of Disposition: 04:23
Patient with high blood pressure during this ER visit?: Yes
Condition: Good
Discharge Problem:
Postoperative urinary retention
Instructions: Urinary retention - Discharge instructions, BLOOD PRESSURE
Prescriptions:
No Action
atorvastatin 40 MG tablet
40 mg PO HS Qty: 30 3RF
tamsulosin 0.4 MG capsule
0.4 mg PO HS Qty: 30 0RF
acetaminophen [Tylenol Extra Strength] 500 MG tablet
1,000 mg PO Q6HPRN PRN (Reason: MILD PAIN)
aspirin 81 MG tablet,delayed release (DR/EC)
81 mg PO DAILY
olmesartan 20 MG tablet
20 mg PO BID
bethanechol chloride 25 MG tablet
25 mg PO DAILY
omeprazole 20 mg Capsule,Delayed Release(Dr/Ec)
20 mg PO DAILY
furosemide 40 mg Tablet
40 mg PO DAILY Qty: 30 0RF
metoprolol succinate 25 mg Tablet Extended Release 24 Hr
12.5 mg PO DAILY@1200 Qty: 30 0RF
docusate sodium [Colace] 100 mg capsule
100 mg PO BID Qty: 30 0RF
tramadol 50 mg tablet
50 mg PO Q8H PRN (Reason: Pain) Qty: 20 0RF
Referrals:
Melvin Khan DO [Family Provider] -
Ariel Dang Jr., MD [Active] - Call in 1-3 days for appt
Activity Restrictions/Additional Instructions:
It was a pleasure meeting you and taking part in your care. We hope for your continued healing and wellness.
Please read discharge instructions in their entirety. However, they are for general education and may not describe your exact diagnosis at discharge. Information on your ER visit and medical conditions were discussed with you along with appropriate
follow up information...
If indicated, please take your medications as instructed and indicated on discharge paperwork.
Please schedule a follow up appointment as directed. Call to schedule an appointment
Please return to the emergency department with ANY change in, persisting, or worsening of symptoms. If any of your symptoms do not improve, or persist, or become more severe within 6-12 hours, please return to the emergency department for further
care.
Please return to the emergency department if you develop a headache, neck pain/stiffness, fever greater than 100.4F, chest pain, shortness of breath, persistent nausea, vomiting, slurred speech, difficulty walking, numbness/tingling, weakness, signs
of infection or any other symptoms that are worrisome to you.
If you have any questions or concerns please do not hesitate to call the Hospital at or E-mail me directly at [email or web address]
Interventions
Interventions:
*Risk Screen - Suicide Last Done: 04/22/24 02:50
*General Assessment Last Done: 04/22/24 02:54
*Neglect/Abuse Screening Last Done: 04/22/24 02:50
ED- Fall Risk Assessment Last Done: 04/22/24 05:09
*ED COVID-19 Vaccine History Last Done: 04/22/24 02:54
*Nursing Disposition Last Done: 04/22/24 05:09
ED-Male Genitourinary Assessment Last Done: 04/22/24 03:00
Discharge Date and Time
Discharge Date/Time: 04/22/24 05:10
Print Language: RWANDAN
[2024-04-22 03:28] LABS: Urine Bacteria Few (Negative); Urine White Cell 0-2 /HPF (0-5)
[2024-04-22 04:00] VITALS: BP 126/60
[2024-04-22] MEDS: TYLENOL 650 MG PO (04:30)
== END 2024-04-22 05:10 | disposition home or self-care (01) ==
LOC: EMR 02:48
PROVIDERS: EMERGENCY PHYSICIAN Student in an Organized Health Care Education/Training Program; FAMILY PHYSICIAN Family Medicine
DX: R33.9 Retention of urine, unspecified (principal); R20.2 Paresthesia of skin; R25.2 Cramp and spasm; M79.604 Pain in right leg; M79.605 Pain in left leg; M79.10 Myalgia, unspecified site; Y83.8 Other surgical procedures as the cause of abnormal reaction of the patient, or of later complication, without mention of misadventure at the time of the procedure; I25.10 Atherosclerotic heart disease of native coronary artery without angina pectoris; E78.00 Pure hypercholesterolemia, unspecified; I10 Essential (primary) hypertension; I48.91 Unspecified atrial fibrillation; M47.816 Spondylosis without myelopathy or radiculopathy, lumbar region; G62.9 Polyneuropathy, unspecified; I35.0 Nonrheumatic aortic (valve) stenosis; I08.1 Rheumatic disorders of both mitral and tricuspid valves; K21.9 Gastro-esophageal reflux disease without esophagitis; G89.29 Other chronic pain; K44.9 Diaphragmatic hernia without obstruction or gangrene; M19.90 Unspecified osteoarthritis, unspecified site; I25.2 Old myocardial infarction; Z79.01 Long term (current) use of anticoagulants; Z96.641 Presence of right artificial hip joint; Z95.1 Presence of aortocoronary bypass graft; Z87.440 Personal history of urinary (tract) infections; Z87.891 Personal history of nicotine dependence; Z90.5 Acquired absence of kidney; Z91.018 Allergy to other foods
CPT/HCPCS: 99284; 51798; 51702; 81003; 81015

== ENCOUNTER 2024-04-27 20:00 | Emergency (ER) | payer MEDICARE, BC, SELFPAY ==
[2024-04-27 20:05] VITALS: BP 154/65
[2024-04-27 21:51] VITALS: BP 143/67
[2024-04-27 22:00] VITALS: BP 123/70
--- NOTE | 2024-04-27 22:53 | ED.GENMED ---
History of Present Illness
General
Chief Complaint: Post Operative Problem(s)
Time Seen by Provider: 04/27/24 22:05
History of Present Illness
History of Present Illness:
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 Patient had the radha removed in the urology office today. When he got home, around 7 PM, started to
have bleeding from the site. His put gauze to the area and they came to the hospital. Since arrival, bleeding has since been controlled. Patient has on aspirin, otherwise is not on any blood thinners. Denies any additional acute complaints.
Denies pain around the site, fever, chest pain, difficulty breathing, vomiting, or additional acute medical complaints
Past History
Past History
ED Past Medical History: Arrthythmia, CAD, HTN, Hypercholesterolemia, MT and Other (UTI, , lumbar DJD, afib on eliquis post-op, post-op urinary retention)
ED Past Surgical History: Cardiac (CABG 02/2018), Orthopedic, Urological (Right nephrectomy) and Other (Cataract)
Social History
Tobacco: Former smoker
Alcohol: None
Drug: None
Personal:
Living: with family
Employment: Retired
Family History
Family History: Other (n/c)
Phy Exam
Physical Exam
Physical Exam:
General: Well-appearing, no clinical signs of dehydration, nontoxic and in no acute distress
HEENT: protecting airway
Neck: appears supple
CV: Normal heart rate
Resp: No accessory muscle use, no increased work of breathing
Abd: Soft nondistended, no tenderness. Incision to the right lower quadrant region with Steri-Strips, evidence of blood on the Steri-Strips. No active bleeding
Extremities: No deformities, no swelling
Neuro: alert, no focal neurologic deficit
: deferred
Rectal: deferred
Psych: Normal affect
Skin: Intact
Course
Vital Signs
Initial and Last Documented VS:
Initial Vital Signs
Temp Pulse Resp BP Pulse Ox
97.8 F 65 18 154/65 97
04/27/24 20:05 04/27/24 20:05 04/27/24 20:05 04/27/24 20:05 04/27/24 20:05
Last Documented Vital Signs
Temp Pulse Resp BP Pulse Ox
97.8 F 65 18 123/70 98
04/27/24 20:05 04/27/24 20:05 04/27/24 20:05 04/27/24 22:00 04/27/24 22:01
MDM/Problems Addressed
MDM/Problems Addressed:
88-year-old male with history of right renal mass status post nephrectomy on 04/18 presenting for evaluation of his surgical incision. Vital signs are normal.
On exam patient is well-appearing, no acute distress or discomfort. On examination of the wound, no surrounding erythema, no drainage, no tenderness to the abdomen or the incision site. No active bleeding. Steri-Strips were removed and incision
was redressed. Patient remains hemodynamically stable. At this time do not feel the patient requires any additional workup or intervention. Feel stable for discharge with close interval follow-up with urology. Return precautions discussed and
patient verbalized understanding
*Critical Care Note
Total Time (30-74mins, 75-104mins- exclusive of procedures): Not Applicable
ED Attending Note
-
Portions of this chart may have been created with voice recognition software.� Occasional wrong word or��sound alike� substitutions may have occurred due to the inherent limitations of voice recognition software.
Discharge Plan
Departure
Patient Disposition: Home (Routine Discharge)
Date of Disposition: 04/27/24
Time of Disposition: 22:50
Patient with high blood pressure during this ER visit?: No
Condition: Good
Discharge Problem:
Encounter for postoperative wound check
Instructions: Wound Care (DC), Bleeding After Surgery
Prescriptions:
No Action
atorvastatin 40 MG tablet
40 mg PO HS Qty: 30 3RF
tamsulosin 0.4 MG capsule
0.4 mg PO HS Qty: 30 0RF
acetaminophen [Tylenol Extra Strength] 500 MG tablet
1,000 mg PO Q6HPRN PRN (Reason: MILD PAIN)
aspirin 81 MG tablet,delayed release (DR/EC)
81 mg PO DAILY
olmesartan 20 MG tablet
20 mg PO BID
bethanechol chloride 25 MG tablet
25 mg PO DAILY
omeprazole 20 mg Capsule,Delayed Release(Dr/Ec)
20 mg PO DAILY
furosemide 40 mg Tablet
40 mg PO DAILY Qty: 30 0RF
metoprolol succinate 25 mg Tablet Extended Release 24 Hr
12.5 mg PO DAILY@1200 Qty: 30 0RF
docusate sodium [Colace] 100 mg capsule
100 mg PO BID Qty: 30 0RF
tramadol 50 mg tablet
50 mg PO Q8H PRN (Reason: Pain) Qty: 20 0RF
Referrals:
Melvin Khan DO [Family Provider] -
Bhargav Mills MD [Active] -
Activity Restrictions/Additional Instructions:
You were seen in the emergency department for wound check
Your wound was redressed and bleeding has been controlled
Please follow-up closely with your urologist
Return to the emergency department for any worsening of your symptoms including increased bleeding from your surgical site, drainage of purulent fluid with foul odor, increased pain to the abdomen, or any development of chest pain, difficulty
breathing, persistent vomiting and inability to tolerate food or liquid by mouth (concern for dehydration), weakness, headache or confusion, fever greater than 100.4, or any additional symptoms that are concerning to you.
Thank you for choosing [facility].
Interventions
Interventions:
*Risk Screen - Suicide Last Done: 04/27/24 20:05
*General Assessment Last Done: 04/27/24 20:05
*Neglect/Abuse Screening Last Done: 04/27/24 20:05
*ED COVID-19 Vaccine History Last Done: 04/27/24 21:48
Discharge Date and Time
Print Language: COLOMBIAN
== END 2024-04-27 23:20 | disposition home or self-care (01) ==
LOC: EMR 20:00
PROVIDERS: EMERGENCY PHYSICIAN Student in an Organized Health Care Education/Training Program; FAMILY PHYSICIAN Family Medicine
DX: Z48.01 Encounter for change or removal of surgical wound dressing (principal); N28.89 Other specified disorders of kidney and ureter; I10 Essential (primary) hypertension; E78.00 Pure hypercholesterolemia, unspecified; I25.10 Atherosclerotic heart disease of native coronary artery without angina pectoris; I48.91 Unspecified atrial fibrillation; M47.816 Spondylosis without myelopathy or radiculopathy, lumbar region; I25.2 Old myocardial infarction; Z90.5 Acquired absence of kidney; Z87.440 Personal history of urinary (tract) infections; Z87.891 Personal history of nicotine dependence; Z95.1 Presence of aortocoronary bypass graft; Z91.018 Allergy to other foods; Z79.82 Long term (current) use of aspirin
CPT/HCPCS: 99281

== ENCOUNTER → 2024-07-27 11:11 | Outpatient (REF) | payer MEDICARE, BC, SELFPAY | LOC: HWRAD 11:11 | PROVIDERS: ATTENDING PHYSICIAN Specialist; FAMILY PHYSICIAN Family Medicine | DX: L76.34 Postprocedural seroma of skin and subcutaneous tissue following other procedure (principal) | CPT/HCPCS: 74176 ==

== ENCOUNTER → 2024-12-31 09:18 | Outpatient (REF) | payer MEDICARE, BC, SELFPAY ==
[2024-12-31 10:40] LABS: ALT (SGPT) 23 U/L (0-50); AST (SGOT) 25 U/L (17-59); Albumin 4.3 g/dl (3.5-5.0); Alkaline Phosphatase 92 U/L (38-126); Blood Urea Nitrogen 28 mg/dl (9-20); Calcium 10.1 mg/dl (8.4-10.2); Chloride 108 mmol/L (98-107); Glucose 96 mg/dl (70-99); HDL Cholesterol 49 mg/dl; LDL Cholesterol, Calculated 47 mg/dl; Total Bilirubin 1.1 mg/dl (0.2-1.3); Total Cholesterol 116 mg/dl (50-199); Total Protein 7.2 g/dl (6.3-8.2); Triglyceride 104 mg/dl (10-149); Very Low Density Lipoprotein 20 mg/dl (0-30); eGFR 58.17
[2024-12-31 10:49] LABS: Carbon Dioxide 24 mmol/L (22-30); Potassium 4.2 mmol/L (3.5-5.1); Sodium 141 mmol/L (135-145)
== END ==
LOC: REG 09:18
PROVIDERS: ATTENDING PHYSICIAN Family Medicine
DX: I10 Essential (primary) hypertension (principal); E78.5 Hyperlipidemia, unspecified; R33.9 Retention of urine, unspecified; Z12.5 Encounter for screening for malignant neoplasm of prostate
CPT/HCPCS: 36415; 80053; 80061; G0103

== ENCOUNTER → 2025-04-26 09:50 | Outpatient (REF) | payer MEDICARE, BC, SELFPAY ==
[2025-04-26 10:35] LABS: Hematocrit 37.7 % (39.0-52.0); Hemoglobin 12.4 g/dL (13.0-18.0); Mean Corp Hgb Conc. 32.9 g/dL (33.0-37.0); Mean Corpuscular Volume 101.1 fL (80.0-94.0); Nucleated Red Blood Cells % 0 % (-); Platelet Count 219 10^3/uL (130-400); Red Cell Dist. Width 11.8 % (11.5-14.5)
[2025-04-26 10:51] LABS: ALT (SGPT) 30 U/L (0-50); AST (SGOT) 29 U/L (17-59); Albumin 4.4 g/dl (3.5-5.0); Alkaline Phosphatase 97 U/L (38-126); Blood Urea Nitrogen 23 mg/dl (9-20); Calcium 9.5 mg/dl (8.4-10.2); Carbon Dioxide 29 mmol/L (22-30); Chloride 107 mmol/L (98-107); Glucose 98 mg/dl (70-99); Potassium 4.2 mmol/L (3.5-5.1); Sodium 143 mmol/L (135-145); Total Protein 7.2 g/dl (6.3-8.2); eGFR 58.17
== END ==
LOC: REG 09:50
PROVIDERS: ATTENDING PHYSICIAN Specialist; FAMILY PHYSICIAN Family Medicine
DX: C64.1 Malignant neoplasm of right kidney, except renal pelvis (principal)
CPT/HCPCS: 36415; 80053; 85025

== ENCOUNTER → 2025-05-08 11:52 | Outpatient (REF) | payer MEDICARE, BC, SELFPAY | LOC: RAD 11:52 | PROVIDERS: ATTENDING PHYSICIAN Specialist; FAMILY PHYSICIAN Family Medicine | DX: C64.9 Malignant neoplasm of unspecified kidney, except renal pelvis (principal) | CPT/HCPCS: 74177; Q9967 ==

== ENCOUNTER → 2025-05-27 08:31 | Outpatient (REF) | payer MEDICARE, BC, SELFPAY ==
[2025-05-27 10:19] LABS: Blood Urea Nitrogen 25 mg/dl (9-20); Calcium 9.6 mg/dl (8.4-10.2); Carbon Dioxide 28 mmol/L (22-30); Chloride 104 mmol/L (98-107); Glucose 105 mg/dl (70-99); Potassium 4.2 mmol/L (3.5-5.1); Sodium 137 mmol/L (135-145); eGFR 58.17
== END ==
LOC: REG 08:31
PROVIDERS: ATTENDING PHYSICIAN Internal Medicine Cardiovascular Disease
DX: Z95.1 Presence of aortocoronary bypass graft (principal)
CPT/HCPCS: 36415; 80048